=== PATIENT | male | born 1940 | race Caucasian/White ===

== ENCOUNTER 2017-07-24 13:22 | Emergency (ER) | payer MEDICARE, BC ==
[2017-07-24 13:31] VITALS: BP 177/86
--- NOTE | 2017-07-24 14:19 | XRAY Preliminary Report ---
Exam: XR SHOULDER 3 VIEW RT IMPRESSION: 1. No evidence of fracture or dislocation. 2. There is mild to moderate underlying degenerative disease. [facility] SITE ID: [id number]
--- NOTE | 2017-07-24 14:20 | XRAY Report ---
EXAM: RIGHT SHOULDER RADIOGRAPHY EXAM DATE: 07/24/2017 02:10 PM. CLINICAL HISTORY: Right shoulder pain; fell one month ago. COMPARISON: None. TECHNIQUE: 3 views. FINDINGS: Bones: Normal. No fracture or bone lesion. Joints: No evidence of dislocation. There is mild glenohumeral and moderate acromioclavicular joint d egenerative disease. Soft tissues: No evidence of pneumothorax. There is reticular opacity within the right lung base whic h may represent atelectasis. IMPRESSION: 1. No evidence of fracture or dislocation. 2. There is mild to moderate underlying degenerative disease. [facility] Referring Provider Line: [phone] SITE ID: [id number]
--- NOTE | 2017-07-24 14:52 | ED Physician Documentation ---
PD HPI UPPER EXT INJURY - Stated complaint Stated Complaint: RT SHOULDER PX - Chief complaint Chief Complaint: Ext Problem - History obtained from History obtained from: Patient, Family (spouse) - History of Present Illness Location: Right, Shoulder Type of injury: Fall Timing - onset: How many months ago (4) Timing - details: Still present Worsened by: Moving Similar symptoms before: Has not had sx before - Additonal information Additional information: The patient is a 76-year-old male who presents with right shoulder pain. One month ago he fell, impacting his right shoulder on the sidewalk. For several days he was not able to move his right arm because of pain. He did not have it evaluated medically. He presents now for evaluation because of persistent pain in his right shoulder with elevation of his right arm. He is right hand dominant. He denies history of similar symptoms in the past. Review of Systems Constitutional: denies: Fever Cardiac: denies: Chest pain / pressure Respiratory: denies: Dyspnea, Cough GI: denies: Abdominal Pain, Nausea, Vomiting Skin: denies: Rash Musculoskeletal: reports: Joint pain (right shoulder). denies: Neck pain, Back pain Neurologic: denies: Focal weakness, Numbness, Headache PD PAST MEDICAL HISTORY - Past Medical History Past Medical History: No Neuro: None Endocrine/Autoimmune: None - Past Surgical History Past Surgical History: Yes - Present Medications Home Medications: Ambulatory Orders Medication Instructions Recorded Confirmed No Known Home Medications [No 07/24/17 07/24/17 Known Home Medications] - Allergies Allergies/Adverse Reactions: Allergies Allergy/AdvReac Type Severity Reaction Status Date / Time No Known Drug Allergies Allergy Verified 07/24/17 13:29 - Living Situation Living Situation: reports: With spouse/s.o. - Social History Does the pt smoke?: No Smoking Status: Never smoker Does the pt drink ETOH?: No Does the pt have substance abuse?: No - Immunizations Immunizations are current?: Yes - POLST Patient has POLST: No PD ED PE NORMAL - Vitals Vital signs reviewed: Yes (hypertensive) - General General: Alert and oriented X 3, Well developed/nourished - HEENT HEENT: Atraumatic, EOMI - Neck Neck: No bony TTP, No JVD - Cardiac Cardiac: RRR, No murmur - Respiratory Respiratory: No respiratory distress, Clear bilaterally - Abdomen Abdomen: Soft, Non tender - Back Back: No spinal TTP - Derm Derm: No rash - Extremities Extremities: No deformity, Other (There is mild tenderness to palpation of the anterior joint line of the right shoulder. He has full passive range of motion without tenderness, but avoids forward elevation of his right shoulder due to pain. Distal neurovascular is intact.) - Neuro Neuro: Alert and oriented X 3, No motor deficit, No sensory deficit Results - Rads (name of study) right shoulder Radiology: Prelim report reviewed, EMP read contemporaneously, See rad report ( No evidence of fracture or dislocation. There is mild to moderate underlying degenerative disease.) PD MEDICAL DECISION MAKING - ED course Complexity details: reviewed results, re-evaluated patient, considered differential, d/w patient, d/w family ED course: The patient's presentation is significant for contusion to the right shoulder from a fall that occurred one month ago. He presents with persistent pain. X- ray examination of the shoulder reveals no bony abnormality. Rotator cuff injury is a consideration. Treatment in the emergency department included application of a right arm sling. I discussed with him and his symptomatic treatment, outpatient follow-up with orthopedics, as well as potentially worrisome signs or symptoms that should prompt reevaluation in the emergency department. Departure - Departure Disposition: 01 Home, Self Care Clinical Impression: Right shoulder injury Qualifiers: Encounter type: initial encounter Qualified Code(s): S49.91XA - Unspecified injury of right shoulder and upper arm, initial encounter Condition: Stable Instructions: ED Contusion Upper Ext Follow-Up: [facility] [Provider Group] Comments: You can use ibuprofen, up to 800 mg twice daily if needed for pain. You can wear the arm sling if it provides comfort. Follow-up with orthopedics within 2 weeks. Call to schedule appointment. Return to the emergency department if you develop increasing pain, or otherwise worsening symptoms. Discharge Date/Time: 07/24/17 14:54
== END 2017-07-24 14:54 | disposition home or self-care (01) ==
LOC: ED 13:22
DX: S49.91XA Unspecified injury of right shoulder and upper arm, initial encounter (principal); W01.0XXA Fall on same level from slipping, tripping and stumbling without subsequent striking against object, initial encounter; Y93.01 Activity, walking, marching and hiking; Y92.480 Sidewalk as the place of occurrence of the external cause
CPT/HCPCS: 99283

== ENCOUNTER 2017-08-04 10:34 | Outpatient (CLI) | payer MEDICARE, BC ==
--- NOTE | 2017-08-04 13:17 | MRI Report ---
EXAM: RIGHT SHOULDER MRI WITHOUT CONTRAST EXAM DATE: 08/04/2017 11:21 AM. CLINICAL HISTORY: Right shoulder pain for 6 weeks. COMPARISON: 07/24/2017 radiograph. TECHNIQUE: Multiplanar, multisequence T1-weighted and fluid-sensitive sequences of the shoulder witho ut contrast. Other: None. FINDINGS: Acromioclavicular Region: The acromion is type II. Severe acromioclavicular osteoarthropathy is evide nced by bony hypertrophy. The coracoacromial and coracoclavicular ligaments are intact. A mild amount of fluid is in the subacromial/subdeltoid bursa. Glenohumeral Region: No subluxation. No effusion or loose bodies. The articular cartilage is unremark able. The glenohumeral ligaments and joint capsule are unremarkable. Bone Marrow: No fractures. Cysts are in the greater tuberosity. Labrum: The labrum is unremarkable on this nonarthrographic study. Musculature/Rotator Cuff: The upper 80% of the subscapularis tendon has a full-thickness tear with re traction of 3.7 cm. The supraspinatus tendon is completely torn with retraction of 3.6 cm. The infras pinatus tendon is thickened and edematous. The teres minor tendon is intact. No muscle edema. There i s moderate atrophy of the supraspinatus muscle. Biceps Tendon: The biceps tendon is completely torn proximally. Other: The subcutaneous tissues are unremarkable. IMPRESSION: 1. Severe acromioclavicular osteoarthropathy. 2. Mild subacromial/subdeltoid bursitis. 3. Full-thickness tear of the subscapularis tendon. 4. Complete tear of the supraspinatus tendon. 5. Complete proximal biceps tendon tear. [facility] MUSCULOSKELETAL RADIOLOGY SECTION Referring Provider Line: [phone] SITE ID: [id number]
== END 2017-08-04 10:35 | disposition home or self-care (01) ==
LOC: DI 10:34
PROVIDERS: ATTEND Orthopaedic Surgery
DX: M75.101 Unspecified rotator cuff tear or rupture of right shoulder, not specified as traumatic (principal); M19.011 Primary osteoarthritis, right shoulder; M75.51 Bursitis of right shoulder; S46.211A Strain of muscle, fascia and tendon of other parts of biceps, right arm, initial encounter

== ENCOUNTER 2018-05-03 16:42 | Emergency (ER) | payer MEDICARE, BC ==
[2018-05-03 17:21] LABS: GLUCOSE, URINE (UA) NEGATIVE (NEGATIVE); KETONES,URINE (UA) TRACE mg/dL (NEGATIVE); LEUKOCYTE ESTERASE, URINE TRACE (NEGATIVE); NITRITE,URINE POSITIVE (NEGATIVE); OCCULT BLOOD,URINE LARGE (NEGATIVE); PROTEIN,URINE >=300 mg/dL (NEGATIVE); UROBILINOGEN,URINE 1 (NORMAL) E.U./dL (NORMAL)
[2018-05-03 17:30] LABS: BILIRUBIN,URINE NEGATIVE (NEGATIVE); CLARITY,URINE CLOUDY (CLEAR); ICTOTEST,URINE NEGATIVE
[2018-05-03 17:40] LABS: BACTERIA,URINE Many /HPF (None Seen); RBC,URINE TNTC /HPF (0-5); SQUAMOUS EPITHELIAL CELL,UR RARE Squamous (<= Few); WBC CLUMPS,URINE PRESENT
[2018-05-03 17:41] LABS: YEAST,URINE PRESENT
--- NOTE | 2018-05-03 17:45 | ED Physician Documentation ---
PD HPI MALE - Stated complaint Stated Complaint: BLOOD IN URINE - Chief complaint Chief Complaint: General - History obtained from History obtained from: Patient - History of Present Illness Timing - onset: Today Timing - details: Abrupt onset (noted pastor blood in urine today, then some clots in it next void and cleared but still red the last time he urinated. Concerned about it, so not wanting to wait until office open in couple days.) Associated symptoms: Urinary frequency (for 1-2 days but did not feel too bothered by it.), Hematuria (today). No: Dysuria, Discharge, Genital sore / lesion Similar symptoms before: Has not had sx before Recently seen: Not recently seen Review of Systems Constitutional: denies: Fever, Chills, Myalgias Nose: denies: Rhinorrhea / runny nose, Congestion Throat: denies: Sore throat Respiratory: denies: Cough GI: denies: Vomiting, Diarrhea : reports: Frequency, Hematuria. denies: Discharge Skin: denies: Rash PD PAST MEDICAL HISTORY - Past Medical History Past Medical History: No Endocrine/Autoimmune: None - Past Surgical History Past Surgical History: Yes - Present Medications Home Medications: Ambulatory Orders Medication Instructions Recorded Confirmed Sulfamethox/Trimeth 800/160 1 each PO BID #14 tablet 05/03/18 [Bactrim Ds 800/160] - Allergies Allergies/Adverse Reactions: Allergies Allergy/AdvReac Type Severity Reaction Status Date / Time No Known Drug Allergies Allergy Verified 07/24/17 13:29 - Social History Does the pt smoke?: No Smoking Status: Never smoker Does the pt drink ETOH?: No Does the pt have substance abuse?: No - Immunizations Immunizations are current?: Yes - POLST Patient has POLST: No PD ED PE NORMAL - Vitals Vital signs reviewed: Yes - General General: Alert and oriented X 3, No acute distress, Well developed/nourished - Male Male : Other (normal genitalia) - Rectal Rectal: Deferred - Back Back: No CVA TTP - Derm Derm: Normal color, Warm and dry, No rash Results - Vitals Vitals: Vital Signs - 24 hr 05/03/18 05/03/18 16:59 18:20 Temperature 36.6 C 36.7 C Heart Rate 68 67 Respiratory 16 18 Rate Blood Pressure 162/76 H 169/81 H O2 Saturation 97 95 Oxygen O2 Source Room air - Labs Labs: Laboratory Tests 05/03/18 17:10 Urine Color RED/BLOODY Urine Clarity CLOUDY Urine pH 5.0 Ur Specific [place] >=1.030 H Urine Protein >=300 Urine Glucose (UA) NEGATIVE Urine Ketones TRACE Urine Occult Blood LARGE H Urine Nitrite POSITIVE H Urine Bilirubin NEGATIVE Urine Urobilinogen 1 (NORMAL) Ur Leukocyte Esterase TRACE H Urine RBC TNTC H Urine WBC 11-25 H Urine WBC Clumps PRESENT Ur Squamous Epith Cells RARE Squamous Urine Bacteria Many H Urine Yeast PRESENT Ur Microscopic Review INDICATED Urine Culture Comments INDICATED PD MEDICAL DECISION MAKING - ED course Complexity details: considered differential (blood in urine but in context of UTI, so can treat that. Discussed with him, if had persistent blood in urine after treatment, consider cystoscopy or such to ensure no polyps/tumors/etc.), d /w patient - Sepsis Event Vital Signs: Vital Signs - 24 hr 05/03/18 05/03/18 16:59 18:20 Temperature 36.6 C 36.7 C Heart Rate 68 67 Respiratory 16 18 Rate Blood Pressure 162/76 H 169/81 H O2 Saturation 97 95 Oxygen O2 Source Room air Departure - Departure Disposition: 01 Home, Self Care Clinical Impression: Hematuria Qualifiers: Hematuria type: unspecified type Qualified Code(s): R31.9 - Hematuria, unspecified UTI (urinary tract infection) Qualifiers: Urinary tract infection type: acute cystitis Hematuria presence: with hematuria Qualified Code(s): N30.01 - Acute cystitis with hematuria Condition: Stable Record reviewed to determine appropriate education?: Yes Instructions: ED UTI Cystitis Male Follow-Up: Ramírez Masters DO [Primary Care Provider] - Prescriptions: Sulfamethox/Trimeth 800/160 [Bactrim Ds 800/160] 1 each PO BID #14 tablet Comments: Your urine test does show signs of the significant infection and blood with this occurs fairly commonly. We will therefore treat the bladder infection and see if things clear up. Follow-up with your primary care towards the end of the week for recheck. Drink lots of fluids. Tylenol if needed for discomfort. Bactrim twice daily for a week for the infection. Discharge Date/Time: 05/03/18 18:22
[2018-05-03] MEDS ORDERED: SULFAMETH/TRIMETH DS 800/160 MG TABLET PO STA (18:04)
[2018-05-03 18:21] VITALS: BP 169/81
== END 2018-05-03 18:22 | disposition home or self-care (01) ==
LOC: ED 16:42
DX: N30.01 Acute cystitis with hematuria (principal)
CPT/HCPCS: 81001; 87086; 99283; A9270; 81003

== ENCOUNTER 2018-05-08 11:36 | Emergency (ER) | payer MEDICARE, BC ==
[2018-05-08] MEDS ORDERED: SODIUM CHLORIDE 0.9% 1,000 ML IV ONE ×2 (12:46)
[2018-05-08 12:48] LABS: GLUCOSE, URINE (UA) NEGATIVE (NEGATIVE); KETONES,URINE (UA) TRACE mg/dL (NEGATIVE); LEUKOCYTE ESTERASE, URINE NEGATIVE (NEGATIVE); NITRITE,URINE NEGATIVE (NEGATIVE); OCCULT BLOOD,URINE LARGE (NEGATIVE); PH,URINE 5.5 PH (5.0-7.5); PROTEIN,URINE 100 mg/dL (NEGATIVE); UROBILINOGEN,URINE 1 (NORMAL) E.U./dL (NORMAL)
--- NOTE | 2018-05-08 12:50 | ED Physician Documentation ---
History of Present Illness - Stated complaint Stated Complaint: MALE - Chief complaint Chief Complaint: Abd Pain - History obtained from History obtained from: Patient, Family - History of Present Illness Timing: How many days ago (5) Pain level max: 0 Pain level now: 0 - Additonal information Additional information: Patient is a 77-year-old male who was seen here 5 days ago for hematuria and diagnosed with a bladder infection. Started on Bactrim. States he has not been feeling well since that time. Had a temperature of 101 last night. Has had nausea but no vomiting. Has felt weaker than usual. Is not on any other medications at home. No fevers today. Denies any abdominal, back or flank pain. No headaches. Nothing makes it better or worse. The hematuria has been intermittent. No history of bladder cancer, but does have a history of an enlarged prostate and had a TURP performed approximately 8 years ago Review of Systems Constitutional: denies: Myalgias Ears: denies: Ear pain Nose: denies: Rhinorrhea / runny nose, Congestion Throat: denies: Sore throat Cardiac: denies: Chest pain / pressure Respiratory: denies: Cough GI: denies: Abdominal Pain, Vomiting, Diarrhea, Hematemesis, Bloody / black stool Skin: denies: Rash Musculoskeletal: denies: Neck pain, Back pain Neurologic: denies: Headache PD PAST MEDICAL HISTORY - Past Medical History Past Medical History: No Endocrine/Autoimmune: None - Past Surgical History Past Surgical History: Yes - Present Medications Home Medications: Ambulatory Orders Medication Instructions Recorded Confirmed Sulfamethox/Trimeth 800/160 1 each PO BID #14 tablet 05/03/18 [Bactrim Ds 800/160] - Allergies Allergies/Adverse Reactions: Allergies Allergy/AdvReac Type Severity Reaction Status Date / Time No Known Drug Allergies Allergy Verified 07/24/17 13:29 - Living Situation Living Situation: reports: With family Living Arrangement: reports: At home - Social History Does the pt smoke?: No Smoking Status: Never smoker Does the pt drink ETOH?: No Does the pt have substance abuse?: No - Family History Family history: reports: Non contributory - Immunizations Immunizations are current?: Yes - POLST Patient has POLST: No PD ED PE NORMAL - Vitals Vital signs reviewed: Yes - General General: Alert and oriented X 3, No acute distress - HEENT HEENT: Other (dry lips) - Neck Neck: Supple, no meningeal sign - Cardiac Cardiac: RRR, Strong equal pulses - Respiratory Respiratory: No respiratory distress, Clear bilaterally - Abdomen Abdomen: Soft, Non tender, Non distended - Back Back: No CVA TTP, No spinal TTP - Derm Derm: Warm and dry - Extremities Extremities: No edema - Neuro Neuro: Alert and oriented X 3 - Psych Psych: Normal mood, Normal affect Results - Vitals Vitals: Vital Signs - 24 hr 05/08/18 05/08/18 05/08/18 11:44 13:45 14:04 Temperature 36.5 C 37.5 C 36.5 C Heart Rate 51 L 79 Respiratory 18 18 Rate Blood Pressure 139/78 H 128/62 O2 Saturation 96 92 Oxygen O2 Source Room air - Labs Labs: Laboratory Tests 05/08/18 05/08/18 05/08/18 12:40 13:00 13:00 WBC 5.7 RBC 5.92 Hgb 17.7 Hct 51.1 MCV 86.2 MCH 29.9 MCHC 34.7 RDW 13.8 Plt Count 170 MPV 7.4 Neut # (Auto) 5.1 Lymph # (Auto) 0.2 L Graves # (Auto) 0.4 Eos # (Auto) 0.0 Baso # (Auto) 0.0 Absolute Nucleated RBC 0.01 Nucleated RBC % 0.2 Sodium 131 L Potassium 3.8 Chloride 94 L Carbon Dioxide 27 Anion Gap 10.0 BUN 28 H Creatinine 1.3 H Estimated GFR (MDRD) 53 L Glucose 128 H Calcium 8.7 Total Bilirubin 0.8 AST 125 H ALT 128 H Alkaline Phosphatase 168 H Total Protein 7.7 Albumin 4.1 Globulin 3.6 Albumin/Globulin Ratio 1.1 Lipase 38 Urine Color DARK YELLOW Urine Clarity HAZY Urine pH 5.5 Ur Specific [place] >=1.030 H Urine Protein 100 H Urine Glucose (UA) NEGATIVE Urine Ketones TRACE Urine Occult Blood LARGE H Urine Nitrite NEGATIVE Urine Bilirubin SMALL H Urine Urobilinogen 1 (NORMAL) Ur Leukocyte Esterase NEGATIVE Urine RBC 0-5 Urine WBC 0-3 Ur Squamous Epith Cells FEW Squamous Amorphous Sediment Few Urine Bacteria None Seen Urine Casts 0-2 Granular Casts Urine Starch PRESENT Urine Mucus Few Strands Ur Microscopic Review INDICATED Urine Culture Comments NOT INDICATED PD MEDICAL DECISION MAKING - ED course Complexity details: reviewed results, re-evaluated patient, considered differential, d/w patient, d/w family ED course: Patient is a 77-year-old male who was seen here for hematuria and treated with Bactrim for a UTI. Does not appear to have a UTI on today's testing. He is mildly hyponatremic and does have mild elevation of his liver function tests. We will stop the Bactrim, given IV fluids. He does feel better. We will have him follow-up with his doctor for further care including referral to urology for possible cystoscopy. Patient is well-appearing, nontoxic. Afebrile here. Tolerating p.o. without difficulty. Ambulating well. Patient and family counseled regarding signs and symptoms for which I believe and urgent re- evaluation would be necessary. Patient with good understanding of and agreement to plan and is comfortable going home at this time This document was made in part using voice recognition software. While efforts are made to proofread this document, sound alike and grammatical errors may occur. - Sepsis Event Vital Signs: Vital Signs - 24 hr 05/08/18 05/08/18 05/08/18 11:44 13:45 14:04 Temperature 36.5 C 37.5 C 36.5 C Heart Rate 51 L 79 Respiratory 18 18 Rate Blood Pressure 139/78 H 128/62 O2 Saturation 96 92 Oxygen O2 Source Room air Departure - Departure Disposition: 01 Home, Self Care Clinical Impression: Dehydration, Hyponatremia, Elevated LFTs Hematuria Qualifiers: Hematuria type: gross Qualified Code(s): R31.0 - Gross hematuria Condition: Stable Instructions: ED Dehydration Follow-Up: Ramírez Masters DO [Primary Care Provider] - 05/08/18 Comments: You are dehydrated today and should feel better after IV fluids. You should stop the Bactrim at this point. The does not appear to be any residual infection in your urine. However your liver function tests are slightly elevated and this may be from the Bactrim. You should follow-up closely with urology for a cystoscopy to further evaluate your bladder. You should also have your blood work rechecked in approximately 1 week with your doctor. Return if you worsen Discharge Date/Time: 05/08/18 14:13
[2018-05-08 13:00] LABS: CLARITY,URINE HAZY (CLEAR)
[2018-05-08 13:07] LABS: BASOPHILS % (AUTO) 0.3 %; EOSINOPHILS % (AUTO) 0.1 %; HGB - HEMOGLOBIN 17.7 g/dL (14.0-18.0); LYMPHOCYTES # (AUTO) 0.2 10^3/uL (1.5-3.5); LYMPHOCYTES % (AUTO) 3.2 %; MEAN CORPUSCULAR HEMOGLOBIN 29.9 pg (27.0-31.0); MEAN CORPUSCULAR HGB CONC 34.7 g/dL (32.0-36.0); MEAN CORPUSCULAR VOLUME 86.2 fL (80.0-94.0); MEAN PLATELET VOLUME 7.4 fL (7.4-11.4); MONOCYTES # (AUTO) 0.4 10^3/uL (0.0-1.0); MONOCYTES % (AUTO) 7.6 %; NEUTROPHILS # (AUTO) 5.1 10^3/uL (1.5-6.6); NEUTROPHILS % (AUTO) 88.8 %; PLT - PLATELET COUNT 170 10^3/uL (130-450); RED BLOOD COUNT 5.92 10^6/uL (4.70-6.10); RED CELL DISTRIBUTION WIDTH 13.8 % (12.0-15.0); WHITE BLOOD COUNT 5.7 x10^3/uL (4.8-10.8)
[2018-05-08 13:16] LABS: ALBUMIN 4.1 g/dL (3.2-5.5); ALBUMIN/GLOBULIN RATIO 1.1 (1.0-2.2); BILIRUBIN,TOTAL 0.8 mg/dL (0.2-1.0); CALCIUM 8.7 mg/dL (8.5-10.3); CREATININE 1.3 mg/dL (0.6-1.2); TOTAL PROTEIN 7.7 g/dL (6.7-8.2)
[2018-05-08 13:29] LABS: RBC,URINE 0-5 /HPF (0-5); SQUAMOUS EPITHELIAL CELL,UR FEW Squamous (<= Few)
[2018-05-08 13:30] LABS: AMORPHOUS SEDIMENT,UR Few /LPF; BACTERIA,URINE None Seen /HPF (None Seen); CASTS, URINE 0-2 Granular Casts /LPF; MUCUS,URINE Few Strands
[2018-05-08 13:31] LABS: STARCH,URINE PRESENT
[2018-05-08 13:32] LABS: BILIRUBIN,URINE SMALL (NEGATIVE); ICTOTEST,URINE POSITIVE
[2018-05-08 13:45] VITALS: BP 128/62
== END 2018-05-08 14:13 | disposition home or self-care (01) ==
LOC: ED 11:36
DX: E87.1 Hypo-osmolality and hyponatremia (principal); E86.0 Dehydration; R74.8 Abnormal levels of other serum enzymes; R31.0 Gross hematuria
CPT/HCPCS: 36415; 80053; 81001; 81003; 83690; 85025; 87086; 96360; 99282; 99283

== ENCOUNTER 2018-09-02 20:37 | Emergency (ER) | payer MEDICARE, BC ==
--- NOTE | 2018-09-02 20:55 | ED Physician Documentation ---
PD HPI MALE - Stated complaint Stated Complaint: MALE /NO URINATION - Chief complaint Chief Complaint: Abd Pain - History obtained from History obtained from: Patient - History of Present Illness Timing - onset: Today Timing - duration: Hours (he had bladder cancer treatment this morning, the 6th of 6 treatments, prior 5 without problems. Today, he has had feeling of burning with urination and a feeling of urgency with only small amount of urine out. He says he has not had urine out for past 2 hours, and was not drinking much fluid for concern of filling up and having increased pain, presuming urinary retention.) Timing - details: Gradual onset, Still present Associated symptoms: Dysuria, Urinary frequency. 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 He is concerned as has some urinary retention with Bactrim abx in the past, though was ? for UTi so not clear if the urinary symptoms were from med per se.) Review of Systems Constitutional: denies: Fever, Chills Nose: denies: Rhinorrhea / runny nose, Congestion Throat: denies: Sore throat Respiratory: denies: Cough GI: denies: Nausea, Vomiting, Diarrhea : reports: Dysuria, Frequency. denies: Hematuria, Discharge Skin: denies: Rash PD PAST MEDICAL HISTORY - Past Medical History Cardiovascular: None Endocrine/Autoimmune: None : Other (bladder cancer) - Past Surgical History Past Surgical History: Yes - Present Medications Home Medications: Ambulatory Orders Medication Instructions Recorded Confirmed Naproxen 500 mg PO BID #10 tablet 09/02/18 Phenazopyridine HCl [Pyridium] 200 mg PO TID PRN #6 tablet 09/02/18 - Allergies Allergies/Adverse Reactions: Allergies Allergy/AdvReac Type Severity Reaction Status Date / Time sulfamethoxazole Allergy Nausea Verified 09/02/18 21:34 [From Bactrim] trimethoprim [From Bactrim] Allergy Nausea Verified 09/02/18 21:34 - Social History Does the pt smoke?: No Smoking Status: Never smoker Does the pt drink ETOH?: No Does the pt have substance abuse?: No - Immunizations Immunizations are current?: Yes - POLST Patient has POLST: No PD ED PE NORMAL - Vitals Vital signs reviewed: Yes - General General: Alert and oriented X 3, No acute distress, Well developed/nourished - HEENT HEENT: Other (left side of nose with bandage in place over skin excisional wound, without signs of infection. ) - Cardiac Cardiac: RRR, No murmur - Respiratory Respiratory: Clear bilaterally - Abdomen Abdomen: Normal bowel sounds, Soft, Non tender, Non distended - Male Male : Other (normal external appearance) - Back Back: No CVA TTP - Derm Derm: Normal color, Warm and dry - Neuro Neuro: Alert and oriented X 3, No motor deficit, Normal speech Results - Vitals Vitals: Vital Signs - 24 hr 09/02/18 09/02/18 09/02/18 20:50 21:42 22:09 Temperature 36.4 C L Heart Rate 47 L 86 85 Respiratory 16 22 Rate Blood Pressure 158/71 H 149/80 H O2 Saturation 95 93 09/02/18 22:12 Temperature 36.9 C Heart Rate Respiratory Rate Blood Pressure O2 Saturation Oxygen O2 Source Room air - Labs Labs: Laboratory Tests 09/02/18 20:47 Urine Color YELLOW Urine Clarity CLEAR Urine pH 6.0 Ur Specific [place] 1.020 Urine Protein 100 H Urine Glucose (UA) NEGATIVE Urine Ketones NEGATIVE Urine Occult Blood LARGE H Urine Nitrite NEGATIVE Urine Bilirubin NEGATIVE Urine Urobilinogen 0.2 (NORMAL) Ur Leukocyte Esterase TRACE H Urine RBC TNTC H Urine WBC >25 H Ur Squamous Epith Cells NONE SEEN Urine Bacteria None Seen Ur Microscopic Review INDICATED Urine Culture Comments INDICATED PD MEDICAL DECISION MAKING - ED course Complexity details: reviewed results (bladder scanner showed only 60 ml and bedside U/S by me affirmed minimal urine in bladder. The UA shows some blood and some white cells, but no bacteria, which I interpret as reasonable reactivity to the catheter and treatment this morning and presume inflammatory and not necessarily infectious. He had been placed on Doxy preventitively for skin SHERON procedure done yesterday and he/ wonder if med side effect, since he did not have dysuria with the first 5 cancer treatments. Since it is just preventive abx, I feel they could just discontinue it anyway, if not sure. ), considered differential, d/w patient Departure - Departure Disposition: Home, Self Care Clinical Impression: Dysuria, Urethral irritation Condition: Stable Record reviewed to determine appropriate education?: Yes Instructions: ED Urethritis Infec Vs Inflam Male Follow-Up: Ramírez Masters DO [Primary Care Provider] - Prescriptions: Naproxen 500 mg PO BID #10 tablet Phenazopyridine HCl [Pyridium] 200 mg PO TID PRN #6 tablet PRN Reason: dysuria Comments: Your bladder and does not have very much urine left in it and so you are emptying appropriately. Your urine test shows the presence of some blood and a few inflammatory white cells but no bacteria. It seems like in inflammation and irritation of the urethra and bladder from the catheter earlier leading to your symptoms. We will treated with some anti-inflammatories and phenazopyridine to decrease the discomfort. Drink lots of fluids. Recheck if not improved over the next 1-2 days. You could follow-up with your urologist if continued symptoms. We will do a urine culture as well to ensure no early infection. I would discontinue the doxycycline for your skin procedure at this point. I do n ot think your symptoms are side effect to that but I do not think it is of large benefit anyway. Discharge Date/Time: 09/02/18 22:25
[2018-09-02 21:32] LABS: BILIRUBIN,URINE NEGATIVE (NEGATIVE); GLUCOSE, URINE (UA) NEGATIVE (NEGATIVE); KETONES,URINE (UA) NEGATIVE (NEGATIVE); LEUKOCYTE ESTERASE, URINE TRACE (NEGATIVE); NITRITE,URINE NEGATIVE (NEGATIVE); OCCULT BLOOD,URINE LARGE (NEGATIVE); PROTEIN,URINE 100 mg/dL (NEGATIVE); UROBILINOGEN,URINE 0.2 (NORMAL) E.U./dL (NORMAL)
[2018-09-02 21:33] LABS: CLARITY,URINE CLEAR (CLEAR)
[2018-09-02 21:41] LABS: RBC,URINE TNTC /HPF (0-5)
[2018-09-02 21:42] LABS: BACTERIA,URINE None Seen /HPF (None Seen); SQUAMOUS EPITHELIAL CELL,UR NONE SEEN (<= Few)
[2018-09-02] MEDS ORDERED: PHENAZOPYRIDINE 100 MG TABLET PO STA (21:48)
[2018-09-02] MEDS ORDERED: NAPROXEN 250 MG TABLET PO STA (21:48)
[2018-09-02] MEDS ORDERED: PHENAZOPYRIDINE 100 MG TABLETS (Prepack) PO PRN (21:48)
[2018-09-02 22:09] VITALS: BP 149/80
== END 2018-09-02 22:25 | disposition home or self-care (01) ==
LOC: ED 20:37
DX: R30.0 Dysuria (principal); N36.8 Other specified disorders of urethra; C67.9 Malignant neoplasm of bladder, unspecified; R31.9 Hematuria, unspecified
CPT/HCPCS: 51798; 81001; 87086; 99283; A9270; 81003

== ENCOUNTER 2019-03-26 13:55 | Inpatient (IN) | payer MEDICARE, BC ==
[2019-03-26 14:44] LABS: BASOPHILS % (AUTO) 0.3 %; EOSINOPHILS % (AUTO) 0.2 %; HGB - HEMOGLOBIN 15.4 g/dL (14.0-18.0); LYMPHOCYTES # (AUTO) 0.9 10^3/uL (1.5-3.5); MEAN CORPUSCULAR VOLUME 88.1 fL (80.0-94.0); MEAN PLATELET VOLUME 8.7 fL (7.4-11.4); MONOCYTES # (AUTO) 0.7 10^3/uL (0.0-1.0); NEUTROPHILS # (AUTO) 11.4 10^3/uL (1.5-6.6); NEUTROPHILS % (AUTO) 86.8 %; PLT - PLATELET COUNT 196 10^3/uL (130-450); RED BLOOD COUNT 5.14 10^6/uL (4.70-6.10); RED CELL DISTRIBUTION WIDTH 13.4 % (12.0-15.0); WHITE BLOOD COUNT 13.1 x10^3/uL (4.8-10.8)
[2019-03-26 15:00] LABS: ALBUMIN 4.4 g/dL (3.2-5.5); ALBUMIN/GLOBULIN RATIO 1.5 (1.0-2.2); CALCIUM 9.3 mg/dL (8.5-10.3); TOTAL PROTEIN 7.4 g/dL (6.7-8.2)
--- NOTE | 2019-03-26 15:53 | ED Physician Documentation ---
PD HPI MALE - Stated complaint Stated Complaint: MALE - Chief complaint Chief Complaint: Abd Pain - History obtained from History obtained from: Patient - History of Present Illness Timing - onset: How many days ago (3) Timing - duration: Days (He had a bladder biopsy 3 weeks ago with some bleeding for a day or 2 after that without any clots. He was doing well and then noted some blood in his urine 3 days ago that lasted just part of the day without clots. He then had resumption of significant bleeding with formation of clots and on able to urinate starting today.) Timing - details: Abrupt onset (today) Associated symptoms: Unable to urinate (after passing some clots, but then felt he could not urinate after that.), Hematuria Similar symptoms before: Diagnosis (has had some hematuria after bladder biopsy, and some blood in urine prior to that that had prompted the biopsy. But had not had clots like this previously.) Review of Systems Constitutional: denies: Fever, Chills Nose: denies: Rhinorrhea / runny nose, Congestion Throat: denies: Sore throat Respiratory: denies: Cough GI: reports: Abdominal Pain (fullness in bladder), Nausea. denies: Vomiting, Constipation, Diarrhea : reports: Hematuria Neurologic: denies: Generalized weakness, Near syncope Endocrine: denies: Easy bruising / bleeding Immunocompromised: denies: Immunocompromised PD PAST MEDICAL HISTORY - Past Medical History Cardiovascular: None Endocrine/Autoimmune: None : Other - Past Surgical History Past Surgical History: Yes - Present Medications Home Medications: Ambulatory Orders Medication Instructions Recorded Confirmed No Known Home Medications 03/27/19 03/27/19 - Allergies Allergies/Adverse Reactions: Allergies Allergy/AdvReac Type Severity Reaction Status Date / Time sulfamethoxazole Allergy Nausea Verified 03/26/19 14:01 [From Bactrim] trimethoprim [From Bactrim] Allergy Nausea Verified 03/26/19 14:01 - Social History Does the pt smoke?: No Smoking Status: Never smoker Does the pt drink ETOH?: No Does the pt have substance abuse?: No - Immunizations Immunizations are current?: Yes - POLST Patient has POLST: No PD ED PE NORMAL - Vitals Vital signs reviewed: Yes (BP elevated but likely due to pain/bladder pressure. ) - General General: Alert and oriented X 3, Well developed/nourished, Other (appears uncomfortable due to bladder fullness. ) - Neck Neck: Supple, no meningeal sign, No adenopathy - Cardiac Cardiac: RRR, No murmur - Respiratory Respiratory: Clear bilaterally - Abdomen Abdomen: Normal bowel sounds, Soft, No organomegaly, Other (bladder fullness) - Back Back: No CVA TTP - Derm Derm: Normal color, Warm and dry - Extremities Extremities: No edema, No calf tenderness / cord - Neuro Neuro: Alert and oriented X 3, No motor deficit, Normal speech Results - Vitals Vitals: Vital Signs - 24 hr 03/26/19 19:55 Heart Rate 81 Respiratory 19 Rate Blood Pressure 174/87 H O2 Saturation 99 Oxygen O2 Source Room air - Labs Labs: Microbiology 03/26/19 18:41 Urine Culture - Preliminary Urine,Catheterized CULTURE IN PROGRESS. RESULTS TO FOLLOW. Laboratory Tests 03/26/19 03/26/19 03/26/19 14:38 14:38 14:38 WBC 13.1 H RBC 5.14 Hgb 15.4 Hct 45.3 MCV 88.1 MCH 30.0 MCHC 34.0 RDW 13.4 Plt Count 196 MPV 8.7 Neut # (Auto) 11.4 H Lymph # (Auto) 0.9 L [place] # (Auto) 0.7 Eos # (Auto) 0.0 Baso # (Auto) 0.0 Absolute Nucleated RBC 0.00 Nucleated RBC % 0.0 PT 13.3 H INR 1.2 Sodium 139 Potassium 4.2 Chloride 103 Carbon Dioxide 23 Anion Gap 13.0 BUN 27 H Creatinine 1.0 Estimated GFR (MDRD) 72 L Glucose 144 H Calcium 9.3 Total Bilirubin 1.0 AST 19 ALT 17 Alkaline Phosphatase 65 Total Protein 7.4 Albumin 4.4 Globulin 3.0 Albumin/Globulin Ratio 1.5 Lipase 24 Urine Color Urine Clarity Urine pH Ur Specific [place] Urine Protein Urine Glucose (UA) Urine Ketones Urine Occult Blood Urine Nitrite Urine Bilirubin Urine Urobilinogen Ur Leukocyte Esterase Urine RBC Urine WBC Ur Squamous Epith Cells Urine Bacteria Ur Microscopic Review Urine Culture Comments 03/26/19 18:41 WBC RBC Hgb Hct MCV MCH MCHC RDW Plt Count MPV Neut # (Auto) Lymph # (Auto) [place] # (Auto) Eos # (Auto) Baso # (Auto) Absolute Nucleated RBC Nucleated RBC % PT INR Sodium Potassium Chloride Carbon Dioxide Anion Gap BUN Creatinine Estimated GFR (MDRD) Glucose Calcium Total Bilirubin AST ALT Alkaline Phosphatase Total Protein Albumin Globulin Albumin/Globulin Ratio Lipase Urine Color RED/BLOODY Urine Clarity HAZY Urine pH 7.0 Ur Specific [place] <=1.005 Urine Protein >=300 H Urine Glucose (UA) Urine Ketones Urine Occult Blood LARGE H Urine Nitrite POSITIVE H Urine Bilirubin NEGATIVE Urine Urobilinogen 4 H Ur Leukocyte Esterase MODERATE H Urine RBC TNTC H Urine WBC 11-25 H Ur Squamous Epith Cells NONE SEEN Urine Bacteria None Seen Ur Microscopic Review INDICATED Urine Culture Comments INDICATED PD MEDICAL DECISION MAKING - ED course Complexity details: re-evaluated patient (feeling better and BP down after bladder empty. ), considered differential, d/w patient, d/w customer support consultant (Dr. Gilberto mosley, his Urologist at [place], who said to continue the irrigation, titrating rate to just tinted red, and to contact him for transfer if it has not resolved into tomorrow. He did say we could transfer now if our Hospitalist uncomfortable. Talked with Dr. Askew, who said he would see the patient. ) Departure - Departure Disposition: 66 [facility] DC/Xfer Clinical Impression: Gross hematuria, Acute urinary retention UTI (urinary tract infection) Qualifiers: Urinary tract infection type: acute cystitis Hematuria presence: with hematuria Qualified Code(s): N30.01 - Acute cystitis with hematuria Condition: Stable Record reviewed to determine appropriate education?: Yes Discharge Date/Time: 03/26/19 20:15
[2019-03-26] MEDS ORDERED: TRANEXAMIC ACID 1,000 MG in SODIUM CHLORIDE 0.9% 100ML 100 ML IV STA (16:23)
[2019-03-26] MEDS ORDERED: KETOROLAC 15 MG/ML VIAL IVP STA (16:24)
[2019-03-26] MEDS ORDERED: SODIUM CHLORIDE 0.9% 1,000 ML IV ONE (16:24)
[2019-03-26] MEDS ORDERED: LIDOCAINE 2% URO-JET 5 ML SYRINGE UR STA (17:03)
[2019-03-26] MEDS ORDERED: WATER FOR INJECTION,STERILE 10 ML ONE (17:11)
[2019-03-26 19:05] LABS: BILIRUBIN,URINE NEGATIVE (NEGATIVE); LEUKOCYTE ESTERASE, URINE MODERATE (NEGATIVE); NITRITE,URINE POSITIVE (NEGATIVE); OCCULT BLOOD,URINE LARGE (NEGATIVE); PROTEIN,URINE >=300 mg/dL (NEGATIVE); UROBILINOGEN,URINE 4 E.U./dL (NORMAL)
[2019-03-26 19:09] LABS: BACTERIA,URINE None Seen /HPF (None Seen); CLARITY,URINE HAZY (CLEAR); RBC,URINE TNTC /HPF (0-5); SQUAMOUS EPITHELIAL CELL,UR NONE SEEN (<= Few)
[2019-03-26] MEDS ORDERED: cefTRIAXone 1 GM VIAL IVP STA (19:33)
[2019-03-26] MEDS ORDERED: ACETAMINOPHEN 325 MG TABLET PO PRN (20:00)
[2019-03-26] MEDS ORDERED: SODIUM CHLORIDE FLUSH 0.9% 10 ML SYRINGE IVP PRN (20:00)
--- NOTE | 2019-03-26 20:15 | HISTORY & PHYSICAL EXAMINATION ---
Chief Complaint - Chief Complaint Chief Complaint: Difficulty urinating History of Present Illness - Admitted From Admitted From:: Home - History Obtained From Records Reviewed: Yes History obtained from: Patient, Family, ER Physican - History of Present Illness HPI Comment/Other: This is a 78 year old male with a past medical history significant for bladder cancer who presents from complaining of difficulty urinating. He underwent a bladder biopsy about three weeks which per the patient, was negative for malignancy. He was doing well up until this week when he developed hematuria. It initially resolved on it's own but today he was unable to void and had significant pain. He then began to pass blood clots. He reports doing well and denies fevers, abdominal pain, chest pain. Does report chills and feeling weak today. He felt felt faint earlier in the day but did not have a syncopal episode. He took Naproxen this morning without much reflief. He does not aspirin or anticoagulants. He follows with Urology at [place] where he was treated with BCG earlier this year. In the ER, a paul catheter was placed and gross hematuria with clots was noted. His Urologist was contacted by the ER physician who recommend continous bladder irrigation. The clots resolved and his hematuria began to clear. Urology recommended admission for observation and CBI. It was felt that transfer was not deemed necessary at this time as his hematuria was improving. I spoke with the patient and his family who would prefer to be observed here rather than transferred to [facility] if management was unlikely to change. I did discuss with them that if his hematuria becomes more severe or does not resolve, they we may need to consider transfer the following day and they were agreeable to this. The patient is also requesting to be full code. He does not have a living will or put much though into his code status yet but would like everything to be done at this time. History - Past Medical History Cardiovascular: reports: None Neuro: reports: None Endocrine/Autoimmune: reports: None : reports: Other (Bladder cancer) MRSA Hx?: No - Past Surgical History /PUBLIC SPEAKER: reports: Other (Cystoscopy) - Family & Social History Family History: Brother: Cancer (Bladder) Family History Comment/Other: Denies any significant medical history except for that his brother also has bladder cancer. Living arrangement: At home Living Situation: With spouse/s.o. 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 Retired and moved to [facility] 15 years ago as his daughter lived here. Lives with his . Does not smoke or drink alcohol. - Substance History Use: Uses substance without health or social issues: NONE - POLST Patient has POLST: No Meds/Allgy - Home Medications Home Medications: Ambulatory Orders Medication Instructions Recorded Confirmed Naproxen 500 mg PO BID #10 tablet 09/02/18 Phenazopyridine HCl [Pyridium] 200 mg PO TID PRN #6 tablet 09/02/18 - Allergies Allergies/Adverse Reactions: Allergies Allergy/AdvReac Type Severity Reaction Status Date / Time sulfamethoxazole Allergy Nausea Verified 03/26/19 14:01 [From Bactrim] trimethoprim [From Bactrim] Allergy Nausea Verified 03/26/19 14:01 Review of Systems - Constitutional Constitutional: reports: Fatigue, Chills, Malaise, Weakness. denies: Fever - Cardiovascular Cariovascular: denies: Palpitations, Chest pain, Edema, Syncope - Respiratory Respiratory: denies: SOB at rest, SOB with exertion - Gastrointestinal Gastrointestinal: denies: Abdominal pain, Nausea, Vomiting - Genitourinary Genitourinary: reports: Dysuria, Urgency, Hematuria, Other (Difficulty voiding) - Musculoskeletal Musculoskeletal: reports: Stiffness, Limited range of motion. denies: Muscle weakness - Integumentary Integumentary: denies: Rash - Neurological Neurological: reports: General weakness, Dizziness. denies: Focal weakness, Numbness - All Other Systems All Other Systems: reports: Reviewed and negative Prior Level of Functionality: Independent with ADL's Exam - Vital Signs Reviewed Vital Signs: Yes Vital Signs: Vital Signs x48h Temp Pulse Resp BP Pulse Ox 03/26/19 19:55 81 19 174/87 H 99 03/26/19 13:58 36.7 C 83 16 200/95 H 95 - Physical Exam General Appearance: positive: No acute distress, Alert Eyes Bilateral: positive: Normal inspection ENT: positive: ENT inspection nml Neck: positive: Nml inspection Respiratory: positive: No respiratory distress, Breath sounds nml. negative: Wheezes, Rales, Rhonchi Cardiovascular: positive: Regular rate & rhythm, No gallop. negative: Tachycard ia, Bradycardia Abdomen: positive: Non-tender, No distention. negative: Tenderness, Abnml bowel sounds Rectal: positive: Other (Paul in place draining fruit punch colored urine) Skin: positive: No rash, Warm, Dry Extremities: positive: No pedal edema. negative: Pedal edema Neurologic/Psychiatric: positive: Oriented x3, Motor nml. negative: Disoriented to person, Disoriented to place, Disoriented to time Conclusion/Plan - Problem List (1) Gross hematuria Conclusion/Plan: He has gross hematuria in the setting of cystoscopy and bladder biopsy approximately three weeks ago. Hematuria is improving with CBI and no longer passing clots. His hemoglobin is stable. Urology contacted at [facility] and recommend continuing CBI. - Continue CBI and titrate to link pink colored urine - Monitor H/H - Hold chemical DVT prophylaxis - If bleeding persists or does not resolve, will contact Urology at [place] [facility] for transfer (2) UTI (urinary tract infection) Conclusion/Plan: His urinalysis shows pyuria with nitrites and a large amount of blood. He has mild leukocytosis. - Ceftriaxone IV - If becomes febrile or worsening leukocytosis, will broaden coverage to cover for enterococcus given recent cystoscopy - Follow up urine culture Qualifiers: Urinary tract infection type: acute cystitis Hematuria presence: with hematuria Qualified Code(s): N30.01 - Acute cystitis with hematuria (3) Bladder cancer Conclusion/Plan: He has history of bladder cancer treated with BCG this year. Follows with Urology at [place]. Most recent biopsy on March 02 was negative for malignancy per family. - Outpatient follow up - Lab Results Lab results reviewed: Yes Fish Bones: 03/26/19 23:00 03/26/19 14:38
[2019-03-26] MEDS: SODIUM CHLORIDE 0.9% 1,000 ML IV SCH (20:45)
[2019-03-26 20:52] LABS: INR 1.2 (0.8-1.2); PT - PROTHROMBIN TIME 13.3 secs (9.9-12.6)
[2019-03-26 23:03] LABS: HGB - HEMOGLOBIN 13.2 g/dL (14.0-18.0)
[2019-03-26] MEDS ORDERED: LIDOCAINE 2% URO-JET 5 ML SYRINGE UR ONE (23:20)
[2019-03-27] MEDS: SODIUM CHLORIDE FLUSH 0.9% 10 ML SYRINGE IVP SCH ×3 (00:18→20:05)
[2019-03-27 05:39] LABS: BASOPHILS % (AUTO) 0.4 %; EOSINOPHILS # (AUTO) 0.2 10^3/uL (0.0-0.7); EOSINOPHILS % (AUTO) 1.7 %; HGB - HEMOGLOBIN 12.8 g/dL (14.0-18.0); LYMPHOCYTES # (AUTO) 1.7 10^3/uL (1.5-3.5); LYMPHOCYTES % (AUTO) 18.3 %; MEAN CORPUSCULAR HEMOGLOBIN 29.2 pg (27.0-31.0); MEAN CORPUSCULAR HGB CONC 32.7 g/dL (32.0-36.0); MEAN CORPUSCULAR VOLUME 89.3 fL (80.0-94.0); MONOCYTES # (AUTO) 0.8 10^3/uL (0.0-1.0); MONOCYTES % (AUTO) 8.3 %; NEUTROPHILS # (AUTO) 6.7 10^3/uL (1.5-6.6); PLT - PLATELET COUNT 159 10^3/uL (130-450); RED BLOOD COUNT 4.38 10^6/uL (4.70-6.10); RED CELL DISTRIBUTION WIDTH 13.6 % (12.0-15.0); WHITE BLOOD COUNT 9.5 x10^3/uL (4.8-10.8)
[2019-03-27 05:50] LABS: CALCIUM 8.2 mg/dL (8.5-10.3); CREATININE 0.9 mg/dL (0.6-1.2)
[2019-03-27] MEDS: SODIUM CHLORIDE 0.9% 1,000 ML IV SCH (11:04)
[2019-03-27] MEDS ORDERED: IOVERSOL 320 100 ML VIAL IVP ONE ×2 (12:36→13:52)
--- NOTE | 2019-03-27 12:37 | PROVIDER PROGRESS NOTE ---
Subjective - Prog Note Date Prog Note Date: 03/27/19 Prog Note Time: 12:36 - Subjective Pt reports feeling: Improved Subjective: Flaco complains of penile discomfort where the paul is (meatus), and has some burning and fullness noted in his bladder. He denies chest pain, nausea, vomiting, a rash, shortness of breath, or a productive cough. He admits to bilateral flank pain that will come and go, intermittent nausea, and low abdominal discomfort at times. *96-hour Attestation: The patient will be discharged or transferred to a higher level of care within 96 hours. Current Medications - Current Medications Current Medications: Active Medications: Acetaminophen (Tylenol) 650 mg PO Q6HR PRN Belladonna Alkaloids/Opium (B & O Supp) 1 supp IA Q6HR PRN Hydromorphone HCl (Dilaudid Inj Carp) 0.5 mg IVP Q2HR PRN Sodium Chloride (Normal Saline 0.9%) 1,000 mls @ 75 mls/hr IV .[id number] NAVIN Ceftriaxone Sodium 1 gm/ (Sodium Chloride) 100 mls @ 200 mls/hr IV Q24H NAVIN Lidocaine HCl (Xylocaine Uro-Jet 2%) 2.5 ml UR Q6H PRN Tamsulosin HCl (Flomax) 0.4 mg PO DAILY NAVIN No Known Home Medications 03/27/19 Objective - Vital Signs/Intake & Output Reviewed Vital Signs: Yes Vital Signs: Vital Signs x48h Temp Pulse Resp BP Pulse Ox 03/27/19 08:00 36.6 C 72 16 142/67 H 97 Intake & Output: Intake & Output 03/24/19 03/25/19 03/26/19 03/27/19 23:59 23:59 23:59 23:59 Intake Total 7510 9896 Output Total [id number] [facility] -[phone] - Objective General Appearance: positive: No acute distress, Alert Eyes Bilateral: positive: PERRL ENT: positive: Pharynx nml, No signs of dehydration Neck: positive: Nml inspection, Thyroid nml, No JVD, Trachea midline Respiratory: positive: Chest non-tender, No respiratory distress, Other (sca ttered crackles to bilateral low bases) Cardiovascular: positive: Regular rate & rhythm Abdomen: positive: Nml bowel sounds, Tenderness, Guarding Back: positive: CVA tenderness (R) (mild discomfort with deep palpation), CVA t enderness (L) Skin: positive: Color nml, No rash, Warm, Dry Extremities: positive: Non-tender, Full ROM, No pedal edema Neurologic/Psychiatric: positive: Oriented x3, CN's nml (2-12), Motor nml, Sensation nml, Mood/affect nml Reflexes: Bicep (R): 3+, Bicep (L): 3+ - Lab Results Fish Bones: 03/27/19 05:10 03/27/19 05:10 Other Labs: Lab Results x24hrs 03/27/19 03/27/19 03/26/19 Range/Units 05:10 05:10 23:00 WBC 9.5 (4.8-10.8) x10^3/uL RBC 4.38 L (4.70-6.10) 10^6/uL Hgb 12.8 L 13.2 L (14.0-18.0) g/dL Hct 39.1 L 39.5 L (42.0-52.0) % MCV 89.3 (80.0-94.0) fL MCH 29.2 (27.0-31.0) pg MCHC 32.7 (32.0-36.0) g/dL RDW 13.6 (12.0-15.0) % Plt Count 159 (130-450) 10^3/uL MPV 9.0 (7.4-11.4) fL Neut # (Auto) 6.7 H (1.5-6.6) 10^3/uL Lymph # (Auto) 1.7 (1.5-3.5) 10^3/uL [place] # (Auto) 0.8 (0.0-1.0) 10^3/uL Eos # (Auto) 0.2 (0.0-0.7) 10^3/uL Baso # (Auto) 0.0 (0.0-0.1) 10^3/uL Absolute Nucleated RBC 0.00 x10^3/uL Nucleated RBC % 0.0 /100WBC PT (9.9-12.6) secs INR (0.8-1.2) Sodium 141 (135-145) mmol/L Potassium 3.9 (3.5-5.0) mmol/L Chloride 106 (101-111) mmol/L Carbon Dioxide 25 (21-32) mmol/L Anion Gap 10.0 (6-13) BUN 21 H (6-20) mg/dL Creatinine 0.9 (0.6-1.2) mg/dL Estimated GFR (MDRD) 81 L (>89) Glucose 98 (70-100) mg/dL Calcium 8.2 L (8.5-10.3) mg/dL Total Bilirubin (0.2-1.0) mg/dL AST (10-42) IU/L ALT (10-60) IU/L Alkaline Phosphatase (42-121) IU/L Total Protein (6.7-8.2) g/dL Albumin (3.2-5.5) g/dL Globulin (2.1-4.2) g/dL Albumin/Globulin Ratio (1.0-2.2) Lipase (22-51) U/L Urine Color Urine Clarity (CLEAR) Urine pH (5.0-7.5) PH Ur Specific [place] (1.002-1.030) Urine Protein (NEGATIVE) mg/dL Urine Glucose (UA) (NEGATIVE) mg/dL Urine Ketones (NEGATIVE) mg/dL Urine Occult Blood (NEGATIVE) Urine Nitrite (NEGATIVE) Urine Bilirubin (NEGATIVE) Urine Urobilinogen (NORMAL) E.U./dL Ur Leukocyte Esterase (NEGATIVE) Urine RBC (0-5) /HPF Urine WBC (0-3) /HPF Ur Squamous Epith Cells (<= Few) Urine Bacteria (None Seen) /HPF Ur Microscopic Review Urine Culture Comments 03/26/19 03/26/19 03/26/19 Range/Units 18:41 14:38 14:38 WBC (4.8-10.8) x10^3/uL RBC (4.70-6.10) 10^6/uL Hgb (14.0-18.0) g/dL Hct (42.0-52.0) % MCV (80.0-94.0) fL MCH (27.0-31.0) pg MCHC (32.0-36.0) g/dL RDW (12.0-15.0) % Plt Count (130-450) 10^3/uL MPV (7.4-11.4) fL Neut # (Auto) (1.5-6.6) 10^3/uL Lymph # (Auto) (1.5-3.5) 10^3/uL [place] # (Auto) (0.0-1.0) 10^3/uL Eos # (Auto) (0.0-0.7) 10^3/uL Baso # (Auto) (0.0-0.1) 10^3/uL Absolute Nucleated RBC x10^3/uL Nucleated RBC % /100WBC PT 13.3 H (9.9-12.6) secs INR 1.2 (0.8-1.2) Sodium 139 (135-145) mmol/L Potassium 4.2 (3.5-5.0) mmol/L Chloride 103 (101-111) mmol/L Carbon Dioxide 23 (21-32) mmol/L Anion Gap 13.0 (6-13) BUN 27 H (6-20) mg/dL Creatinine 1.0 (0.6-1.2) mg/dL Estimated GFR (MDRD) 72 L (>89) Glucose 144 H (70-100) mg/dL Calcium 9.3 (8.5-10.3) mg/dL Total Bilirubin 1.0 (0.2-1.0) mg/dL AST 19 (10-42) IU/L ALT 17 (10-60) IU/L Alkaline Phosphatase 65 (42-121) IU/L Total Protein 7.4 (6.7-8.2) g/dL Albumin 4.4 (3.2-5.5) g/dL Globulin 3.0 (2.1-4.2) g/dL Albumin/Globulin Ratio 1.5 (1.0-2.2) Lipase 24 (22-51) U/L Urine Color RED/BLOODY Urine Clarity HAZY (CLEAR) Urine pH 7.0 (5.0-7.5) PH Ur Specific [place] <=1.005 (1.002-1.030) Urine Protein >=300 H (NEGATIVE) mg/dL Urine Glucose (UA) (NEGATIVE) mg/dL Urine Ketones (NEGATIVE) mg/dL Urine Occult Blood LARGE H (NEGATIVE) Urine Nitrite POSITIVE H (NEGATIVE) Urine Bilirubin NEGATIVE (NEGATIVE) Urine Urobilinogen 4 H (NORMAL) E.U./dL Ur Leukocyte Esterase MODERATE H (NEGATIVE) Urine RBC TNTC H (0-5) /HPF Urine WBC 11-25 H (0-3) /HPF Ur Squamous Epith Cells NONE SEEN (<= Few) Urine Bacteria None Seen (None Seen) /HPF Ur Microscopic Review INDICATED Urine Culture Comments INDICATED 03/26/19 Range/Units 14:38 WBC 13.1 H (4.8-10.8) x10^3/uL RBC 5.14 (4.70-6.10) 10^6/uL Hgb 15.4 (14.0-18.0) g/dL Hct 45.3 (42.0-52.0) % MCV 88.1 (80.0-94.0) fL MCH 30.0 (27.0-31.0) pg MCHC 34.0 (32.0-36.0) g/dL RDW 13.4 (12.0-15.0) % Plt Count 196 (130-450) 10^3/uL MPV 8.7 (7.4-11.4) fL Neut # (Auto) 11.4 H (1.5-6.6) 10^3/uL Lymph # (Auto) 0.9 L (1.5-3.5) 10^3/uL [place] # (Auto) 0.7 (0.0-1.0) 10^3/uL Eos # (Auto) 0.0 (0.0-0.7) 10^3/uL Baso # (Auto) 0.0 (0.0-0.1) 10^3/uL Absolute Nucleated RBC 0.00 x10^3/uL Nucleated RBC % 0.0 /100WBC PT (9.9-12.6) secs INR (0.8-1.2) Sodium (135-145) mmol/L Potassium (3.5-5.0) mmol/L Chloride (101-111) mmol/L Carbon Dioxide (21-32) mmol/L Anion Gap (6-13) BUN (6-20) mg/dL Creatinine (0.6-1.2) mg/dL Estimated GFR (MDRD) (>89) Glucose (70-100) mg/dL Calcium (8.5-10.3) mg/dL Total Bilirubin (0.2-1.0) mg/dL AST (10-42) IU/L ALT (10-60) IU/L Alkaline Phosphatase (42-121) IU/L Total Protein (6.7-8.2) g/dL Albumin (3.2-5.5) g/dL Globulin (2.1-4.2) g/dL Albumin/Globulin Ratio (1.0-2.2) Lipase (22-51) U/L Urine Color Urine Clarity (CLEAR) Urine pH (5.0-7.5) PH Ur Specific [place] (1.002-1.030) Urine Protein (NEGATIVE) mg/dL Urine Glucose (UA) (NEGATIVE) mg/dL Urine Ketones (NEGATIVE) mg/dL Urine Occult Blood (NEGATIVE) Urine Nitrite (NEGATIVE) Urine Bilirubin (NEGATIVE) Urine Urobilinogen (NORMAL) E.U./dL Ur Leukocyte Esterase (NEGATIVE) Urine RBC (0-5) /HPF Urine WBC (0-3) /HPF Ur Squamous Epith Cells (<= Few) Urine Bacteria (None Seen) /HPF Ur Microscopic Review Urine Culture Comments - Diagnostic Imaging Diagnostic Imaging Results: positive: Final report reviewed Diagnostic Imaging Comments: EXAM: CT ABDOMEN AND PELVIS EXAM DATE: 03/27/2019 01:50 PM IMPRESSION: 1. Paul catheter within the bladder, with bladder gas presumably related to the presence of the catheter. 2. New lobulated, multifocal soft tis diego density within the bladder presumably represents blood clot in the setting of gross hematuria. Tumor cannot be excluded. 3. New very mild streaky/hazy opacity around the bladder could represent edema/inflammation. 4. Nonobstructing right nephrolithiasis redemonstrated. 5. No CT evidence of pyelonephritis. 6. Prostate enlargement redemonstrated. 7. Additional stable chronic findings, as above. ABX Reporting Has patient been on IV antibiotics over the past 48 hours?: Yes Assessment/Plan - Problem List (1) Gross hematuria Impression: - Bleeding started at home in which the patient notes dark blood followed by bright red blood prompting an ED visit - Continues on continuous bladder irrigation per primary Urology team - Continue manual irrigation per nursing every 4 hours until clots resolve - Belladona suppositories Q6H PRN- encouraged to use - Lidocaine jelly for penile meatus discomfort - Abdominal/pelvic CT with contrast show no changes including a 9 mm right kidney stone which is non-obstructing, a 7 mm left upper lobe lung nodule, and multifocal soft tissue densities within the bladder - Per Kentrell Castro MD, paul should remain in place for about 1 week post hospital stay and does not recommend changing paul to a regular size prior to discharge Plan: Continue CBI, Q4H manual irrigation, belladona suppositories Q6H, lidocaine jelly, tylenol or dilaudid if needed (2) Bladder cancer Impression: - Patient had a bladder wall biopsy on 03/02 showing NO cancer, per patient - I have requested Urology records from [facility] - Patient sees Kentrell Castro MD Urology - I have spoken to him today to share CT findings of which he is fine with and blood clots are likely a result of acute infection Plan: Continue to run CBI, monitor for improvement of hematuria (3) Right nephrolithiasis Impression: - CT of abdomen/pelvis shows a non-obstructing right kidney stone measuring 9 mm in the right renal calculus Plan: Start Flomax to assist with passage, treat symptoms (4) UTI (urinary tract infection) Impression: - Urinalysis shows likely acute infection, urine culture is pending - + nitrites, so could be e. coli strain - Started on Rocephin, continues Q24 hours - Patient is allergic to Bactrim, so will need an extended course of antibiotics using a flourquinalone (21-days minimum) to penetrate the prostate Plan: Continue to treat, await final cultures Qualifiers: Urinary tract infection type: acute cystitis Hematuria presence: with hematuria Qualified Code(s): N30.01 - Acute cystitis with hematuria (5) Penile irritation Impression: - Becomes worse with urine that leaks around meatus when needing manual irrigation - Lidocaine jelly helps, belladona suppositories also have been helping Plan: Continue to manually irrigate Q4H, continue to monitor for improvement (6) Pulmonary nodule, left Impression: - 7 MM in left upper lobe - The patient has been previously told of this finding - Denies bloody sputum, increased cough or recent pneumonia - Patient admits to upcoming follow up outpatient - Less worrisome since it is a single nodule, and the location NOT being in the right upper lobe Plan: Continue to monitor, recommend follow up as scheduled (7) Atelectasis, bilateral Impression: - Findings from CT today shows pulmonary consolidation - Ordering incentive spirometry - Stopping IV fluids - Scattered crackles on exam bilaterally Plan: Continue to monitor (8) History of transurethral resection of prostate Impression: - Evidence of this on CT, also reported from patient- unknown year Plan: Continue CBI, starting Flomax for right kidney stone (9) Acute urinary retention Impression: - Patient described how since his hematuria started, he also was not able to urinate along with having dysuria - Will be leaving the indwelling paul in place upon discharge per Urology- Kentrell Castro MD at [facility] Plan: Continue CBI per urology, manual bladder irrigations Q4H, monitor for improvement in hematuria
[2019-03-27] MEDS: LIDOCAINE 2% URO-JET 5 ML SYRINGE UR PRN ×2 (13:10→22:16)
[2019-03-27] MEDS: OPIUM/BELLADONNA 60/16.2MG SUPPOSITORY PR PRN (14:02)
--- NOTE | 2019-03-27 15:07 | CT Report ---
Reason: gross hematuria, evaluate for pyelonephritis Procedure Date: 03/27/2019 Accession Number: [id number] / [id number] Procedure: CT - Abdomen/Pelvis W CPT Code: FULL RESULT: EXAM: CT ABDOMEN AND PELVIS EXAM DATE: 03/27/2019 01:50 PM. CLINICAL HISTORY: Gross hematuria, evaluate for pyelonephritis. COMPARISONS: CT ABDOMEN, PELVIS W/W 02/17/2019 5:38 PM. TECHNIQUE: Routine helical CT imaging was performed through the abdomen and pelvis. IV contrast: OPTI 320 90ML. Enteric contrast: No. Reconstructions: Coronal and sagittal. In accordance with CT protocol optimization, one or more of the following dose reduction techniques were utilized for this exam: automated exposure control, adjustment of mA and/or KV based on patient size, or use of iterative reconstructive technique. FINDINGS: Lung Bases: Stable right hemidiaphragm elevation. Similar adjacent pulmonary consolidation is compatible with atelectasis. 7 mm pleural-based nodule at the anterior medial margin of the left upper lobe is without change. Liver: Normal. No masses. Gallbladder/Bile Ducts: Unremarkable. Spleen: Normal. Pancreas: Normal. Adrenal Glands: Normal. Kidneys: Stable nonobstructing 9 mm right renal calculus. No ureteral calculi, hydronephrosis or hydroureter demonstrated. Single tiny bilateral renal hypodensities are too small to definitely characterize but are stable and likely represent cysts. No definite masses. Stable very mild bilateral perinephric stranding. No pastor pyelonephritis demonstrated. Peritoneal Cavity/Bowel: Normal. No free fluid, free air or adenopathy. No masses or acute inflammatory process. Redundant sigmoid colon incidentally noted. The appendix is well visualized and normal. Pelvic Organs: Shelley catheter within the bladder with mild bladder distention. Very small bladder diverticulum demonstrated. There is mild to moderate gas within the bladder which presumably is related to the catheter. There is substantial new lobulated, nodular and ill-defined soft tissue density within the bladder which in the setting of gross hematuria is most consistent with blood clots. Neoplasm cannot be excluded. There is new very mild hazy/strand-like density around the bladder which could represent edema or inflammation. Prostate enlargement an apparent TURP defect redemonstrated. Vasculature: Mild to moderate calcifications, without aneurysm. Bones: No acute abnormality. Stable mild degenerative/chronic findings. Other: Stable fat-containing left inguinal hernia. IMPRESSION: 1. Shelley catheter within the bladder, with bladder gas presumably related to the presence of the catheter. 2. New lobulated, multifocal soft tissue density within the bladder presumably represents blood clot in the setting of gross hematuria. Tumor cannot be excluded. 3. New very mild streaky/hazy opacity around the bladder could represent edema/inflammation. 4. Nonobstructing right nephrolithiasis redemonstrated. 5. No CT evidence of pyelonephritis. 6. Prostate enlargement redemonstrated. 7. Additional stable chronic findings, as above. RADIA
[2019-03-27] MEDS ORDERED: HYDROmorphone 1 MG/ML CARPUJECT IVP PRN (15:42)
[2019-03-27 17:05] LABS: HGB - HEMOGLOBIN 14.4 g/dL (14.0-18.0)
[2019-03-27] MEDS: TAMSULOSIN 0.4 MG CAPSULE PO SCH (18:36)
[2019-03-27] MEDS ORDERED: cefTRIAXone 1 GM in SODIUM CHLORIDE 0.9% MINIBAG 100 ML IV SCH (20:00)
[2019-03-28] MEDS: SODIUM CHLORIDE FLUSH 0.9% 10 ML SYRINGE IVP SCH ×4 (01:51→23:42)
[2019-03-28] MEDS: TAMSULOSIN 0.4 MG CAPSULE PO SCH (08:36)
[2019-03-28] MEDS: CIPROFLOXACIN 250 MG TABLET PO SCH ×2 (14:24→20:33)
[2019-03-28] MEDS: LIDOCAINE 2% URO-JET 5 ML SYRINGE UR PRN (16:28)
--- NOTE | 2019-03-28 16:36 | PROVIDER PROGRESS NOTE ---
Subjective - Prog Note Date Prog Note Date: 03/28/19 Prog Note Time: 16:36 - Subjective Pt reports feeling: Improved Subjective: Dilip states that he has no further bladder discomfort and has been trying to drink more liquids this afternoon. He denies new symptoms such as chest pain, headaches, nausea, vomiting, diarrhea, a new rash, shortness of breath, or a new cough. * Leaking around the paul, and some blood clots remaining with manual irrigation are preventing him from discharge this evening. Also running higher blood pressures 186/75, which may be caused by the patient drinking extra. Patient is encouraged to get up this evening for his PM meal, and ambulate when he can. Current Medications - Current Medications Current Medications: Active Medications: Acetaminophen (Tylenol) 650 mg PO Q6HR PRN Belladonna Alkaloids/Opium (B & O Supp) 1 supp NJ Q6HR PRN Ciprofloxacin (Cipro) 500 mg PO BID NAVIN Lidocaine HCl (Xylocaine Uro-Jet 2%) 2.5 ml UR Q6H PRN Tamsulosin HCl (Flomax) 0.4 mg PO DAILY [facility] HOME meds: No Known Home Medications 03/27/19 Objective - Vital Signs/Intake & Output Reviewed Vital Signs: Yes Vital Signs: Vital Signs x48h BP 03/28/19 08:43 132/55 H Intake & Output: Intake & Output 03/25/19 03/26/19 03/27/19 03/28/19 23:59 23:59 23:59 23:59 Intake Total 7510 89030 06181 Output Total 53771 52236 9354 Balance -6790 236 1256 - Objective General Appearance: positive: No acute distress, Alert Eyes Bilateral: positive: PERRL, No lid inflammation ENT: positive: Pharynx nml, No signs of dehydration Neck: positive: Thyroid nml, No JVD, Trachea midline Respiratory: positive: Chest non-tender, No respiratory distress, Breath sounds nml Cardiovascular: positive: Regular rate & rhythm, No gallop, Bradycardia, Systolic murmur Peripheral Pulses: 1+ Radial (R), 1+ Radial (L) Abdomen: positive: Non-tender, Nml bowel sounds Back: positive: Nml inspection Skin: positive: Color nml, No rash, Warm, Dry Extremities: positive: Non-tender, Full ROM, Nml appearance, No pedal edema Neurologic/Psychiatric: positive: Oriented x3, CN's nml (2-12), Motor nml, Sensation nml, Mood/affect nml Reflexes: Bicep (R): 3+, Bicep (L): 3+ - Lab Results Fish Bones: 03/27/19 17:00 03/27/19 05:10 Other Labs: Lab Results x24hrs 03/27/19 03/27/19 Range/Units 17:00 17:00 Hgb 14.4 (14.0-18.0) g/dL Hct 43.8 (42.0-52.0) % B-Natriuretic Peptide 52 (5-100) pg/mL ABX Reporting Has patient been on IV antibiotics over the past 48 hours?: No Assessment/Plan - Problem List (1) Gross hematuria Impression: - Bleeding started at home in which the patient notes dark blood followed by bright red blood prompting an ED visit - Status post continuous bladder irrigation per primary Urology team - Status post manual irrigation per nursing every 4 hours until clots resolve, now only as needed - Belladona suppositories Q6H PRN- encouraged to use - Lidocaine jelly for penile meatus discomfort - Abdominal/pelvic CT with contrast show no changes including a 9 mm right kidney stone which is non-obstructing, a 7 mm left upper lobe lung nodule, and multifocal soft tissue densities within the bladder - Per Kentrell Castro MD, paul should remain in place for about 1 week post hospital stay Plan: Change paul this evening to ensure easier compliance at home, belladona suppositories Q6H, lidocaine jelly, tylenol or dilaudid if needed (2) Bladder cancer Impression: - Patient had a bladder wall biopsy on 03/02 showing NO cancer, per patient - I have requested Urology records from [facility] - Patient sees Kentrell Castro MD Urology - I have spoken Urologist to share CT findings of which he is fine with and blood clots are likely a result of acute infection Plan: Monitor for hematuria (3) Right nephrolithiasis Impression: - CT of abdomen/pelvis shows a non-obstructing right kidney stone measuring 9 mm in the right renal calculus Plan: Continue Flomax to assist with passage, treat symptoms (4) UTI (urinary tract infection) Impression: - Urinalysis shows likely acute infection, urine culture does not identify a pathogen - + nitrites, so could be e. coli strain - Started on Rocephin, continues Q24 hours- now stopped - Patient is allergic to Bactrim, so was started on oral Cipro today, (28-days minimum) to penetrate the prostate Plan: Continue to treat, start oral Cipro today Qualifiers: Urinary tract infection type: acute cystitis Hematuria presence: with hematuria Qualified Code(s): N30.01 - Acute cystitis with hematuria (5) Penile irritation Impression: - Becomes worse with urine that leaks around meatus when needing manual irri gation - Lidocaine jelly helps, belladona suppositories also have been helping Plan: Continue to monitor, use belladona, and lidocaine topical jelly if needed (6) Pulmonary nodule, left Impression: - 7 MM in left upper lobe - The patient has been previously told of this finding - Denies bloody sputum, increased cough or recent pneumonia - Patient admits to upcoming follow up outpatient - Less worrisome since it is a single nodule, and the location NOT being in the right upper lobe Plan: Continue to monitor, recommend follow up as scheduled (7) Atelectasis, bilateral Impression: - Findings from CT showed pulmonary consolidation - Incentive spirometry per RT - No more IV fluids - Scattered crackles on exam bilaterally Plan: Continue to monitor (8) History of transurethral resection of prostate Impression: - Evidence of this on CT, also reported from patient- unknown year Plan: Continue Flomax for right kidney stone (9) Acute urinary retention Impression: - Patient described how since his hematuria started, he also was not able to urinate along with having dysuria - Will be leaving the indwelling paul in place upon discharge per Urology- Kentrell Castro MD at [facility] Plan: Continue indwelling paul
[2019-03-28] MEDS: ENOXAPARIN 40 MG/0.4 ML SYRINGE SUBQ SCH (18:17)
[2019-03-28] MEDS: SACCHAROMYCES BOULARDII 250 MG CAPSULE PO SCH (19:49)
[2019-03-29 05:34] LABS: BASOPHILS % (AUTO) 0.5 %; EOSINOPHILS # (AUTO) 0.3 10^3/uL (0.0-0.7); EOSINOPHILS % (AUTO) 3.7 %; LYMPHOCYTES # (AUTO) 1.5 10^3/uL (1.5-3.5); LYMPHOCYTES % (AUTO) 16.7 %; MEAN CORPUSCULAR HEMOGLOBIN 28.9 pg (27.0-31.0); MEAN CORPUSCULAR HGB CONC 32.2 g/dL (32.0-36.0); MEAN CORPUSCULAR VOLUME 89.8 fL (80.0-94.0); MEAN PLATELET VOLUME 8.7 fL (7.4-11.4); MONOCYTES # (AUTO) 0.7 10^3/uL (0.0-1.0); MONOCYTES % (AUTO) 7.9 %; NEUTROPHILS # (AUTO) 6.2 10^3/uL (1.5-6.6); PLT - PLATELET COUNT 169 10^3/uL (130-450); RED CELL DISTRIBUTION WIDTH 13.8 % (12.0-15.0); WHITE BLOOD COUNT 8.8 x10^3/uL (4.8-10.8)
[2019-03-29 05:47] LABS: ALBUMIN 3.3 g/dL (3.2-5.5); ALBUMIN/GLOBULIN RATIO 1.3 (1.0-2.2); BILIRUBIN,TOTAL 0.5 mg/dL (0.2-1.0); CALCIUM 8.6 mg/dL (8.5-10.3); CREATININE 0.9 mg/dL (0.6-1.2); TOTAL PROTEIN 5.9 g/dL (6.7-8.2)
--- NOTE | 2019-03-29 07:59 | Discharge Plan ---
Discharge Plan Problem Reviewed?: Yes Disposition: Home, Self Care Condition: Good Prescriptions: Opium/Belladonn 60/16.2MG Supp [B & O Supp] 1 supp FL Q6HR PRN #15 supp PRN Reason: Bladder Spasms Ciprofloxacin HCl [Cipro] 500 mg PO BID #50 tablet Saccharomyces Boulardii [Florastor] 250 mg PO BID #60 capsule Tamsulosin [Flomax] 0.4 mg PO DAILY #30 capsule Diet: Regular Activity Restrictions: Activity as Tolerated Shower Restrictions: No Instruction Topics: Ciprofloxacin tablets, Catheter Bag Urinary Empty Clean, Catheter Indwelling Urinary Dc, Leg Bag Care Dc Health Concerns: Hematuria (bleeding from your bladder) Bladder cancer Bladder spasms Urinary tract infection Kidney stone (right measuring 9 mm- non-obstructing) Indwelling paul Plan of Treatment: Leave paul in for 1 week or until follow up with primary care provider Continue to take Ciprofloxacin for a total of 28-days (25 more days) Use the Belladonna suppositories if you find that your catheter is leaking urine at home or if you have bladder discomfort Keep taking the Flomax to encourage passage of the 9 mm kidney stone See Urology as previously scheduled Social work was consulted to provide a list of volunteers who drive people off the [place] for appointments Care Goals: Prevent hospital stays/or ED visits Prevent recurrent infections Continue treatment/follow up for bladder cancer Assessment: The patient and his Nubia were agreeable to the plan of going home with an indwelling paul to prevent recurrence of hematuria. The most likely reason for this episode of bleeding was underlying prostatitis/cystitis (UTI) which requires an extended treatment of 25 more days. A probiotic should be taken for the next 2 months. Additional Instructions or Follow Up instructions: I have spoken to KALYAN Warren who set an appointment at Dr. Masters's clinic for this Sunday March 31, 2019 @ 10 AM to ensure follow up with the indwelling paul catheter. If your catheter leaks at home, please insert a Belladona suppository into your rectum, perform a flush as a last resort. Return to the ED or to the clinic for further issues. The most likely cause of this leaking is due to bladder spasms, which is relieved with the suppositories. No Smoking: If you smoke, Please STOP! Call for help. Follow-up with: Ramírez Masters DO [Primary Care Provider] -
[2019-03-29 08:05] VITALS: BP 165/66
--- NOTE | 2019-03-29 08:11 | DISCHARGE SUMMARY ---
"Discharge Summary Admit Date: 03/26/19 Discharge Date: 03/29/19 Discharging Provider: AMARJIT Esparza Primary Care Provider: Dr. Ramírez Masters Code Status: Attempt Resuscitation Condition at Discharge: Good Discharge Disposition: 01 Home, Self Care - DIAGNOSES Admission Diagnoses: Gross hematuria UTI (urinary tract infection) Bladder cancer Discharge Diagnoses with Status of Each Condition: Gross hematuria- resolved, now with only intermittent clots with vigorous flushing Bladder cancer- considered to be in remission, latest biopsies on 03/02/ were negative for carcinoma Right nephrolithiasis- non- obstructing measuring 9 mm, continued on Flomax to encourage passage Prostatitis- most likely culprit of harboring bacteria leading to acute infection, continued on Cipro PO to be continued for 25 days UTI (urinary tract infection)- new on this admission, no identifiable pathogen on cultures, but + nitrites, continue PO Cipro Penile irritation- resolved, smaller paul placed prior to discharge Pulmonary nodule- measuring 7 mm, patient was aware of this finding, upcoming pulmonary consult Atelectasis, bilateral- now with some right low lobe crackles, encouraged to continue I.S. at home S/P TURP (status post transurethral resection of prostate)- chronic, stable Acute urinary retention- likely will resolve upon paul removal and was caused by gross hematuria, continued on flomax for kidney stone passage which will also be beneficial upon paul removal Elevated blood pressure with diagnosis of hypertension- new on this admission, B/P readings up to 195/75, but may have been due to increased intentional water consumptions. Patient encouraged to drink when he is thirsty, but no in excess. Also advised to keep liquids to under 2L per day. Last B/P reading prior to discharge was 165/66 and heart rates in the 60's. He was not started on any antihypertensives while in the hospital, but this needs to be followed by PCP Acute blood loss anemia- Last H/H was 13.0/40.4, with a normal MCV, no dizziness, no hypotension, and is trending up, no blood transfusions were needed Elevated BUN- Likely due to bleeding, last was 23 Indwelling Paul catheter present- recommended by Urology to leave in place for up to one week to promote bladder decompression to reduce the risk of bleeding from the bladder wall - HPI History of Present Illness: HPI per Dr. Yousef: This is a 78 year old male with a past medical history significant for bladder cancer who presents from complaining of difficulty urinating. He underwent a bladder biopsy about three weeks which per the patient, was negative for malignancy. He was doing well up until this week when he developed hematuria. It initially resolved on it's own but today he was unable to void and had significant pain. He then began to pass blood clots. He reports doing well and denies fevers, abdominal pain, chest pain. Does report chills and feeling weak today. He felt felt faint earlier in the day but did not have a syncopal episode. He took Naproxen this morning without much reflief. He does not aspirin or anticoagulants. He follows with Urology at [place] where he was treated with BCG earlier this year. In the ER, a paul catheter was placed and gross hematuria with clots was noted. His Urologist was contacted by the ER physician who recommend continous bladder irrigation. The clots resolved and his hematuria began to clear. Urology recommended admission for observation and CBI. It was felt that transfer was not deemed necessary at this time as his hematuria was improving. I spoke with the patient and his family who would prefer to be observed here rather than transferred to [place] if management was unlikely to change. I did discuss with them that if his hematuria becomes more severe or does not resolve, they we may need to consider transfer the following day and they were agreeable to this. The patient is also requesting to be full code. He does not have a living will or put much though into his code status yet but would like everything to be done at this time. - CONSULTS | PROCEDURES Consultations: Urology- via phone Dr. Kentrell Castro - HOSPITAL COURSE Hospital Course: Gross hematuria- Bleeding started at home in which the patient notes dark blood followed by bright red blood prompting an ED visit - Status post continuous bladder irrigation per primary Urology team - Status post manual irrigation per nursing every 4 hours until clots resolve, now only as needed - Belladona suppositories Q6H PRN- encouraged to use - Lidocaine jelly for penile meatus discomfort- not continued at home as this was resolved - Abdominal/pelvic CT with contrast show no changes including a 9 mm right kidney stone which is non-obstructing, a 7 mm left upper lobe lung nodule, and multifocal soft tissue densities within the bladder - Per Kentrell Castro MD (Urology in [place]), paul should remain in pl [place] for about 1 week post hospital stay - The patient's indwelling paul was changed to ease the transition to home - The patient had one more episode of urine leaking around the catheter just prior to discharge, so a Belladona suppository was given, and instructions on how to irrigate at home were given as a last resort - This condition is resolved at the time of discharge Bladder cancer- Patient had a bladder wall biopsy on 03/02 showing NO cancer, per patient - Urology records from [place] in [place] were obtained showing negative for carcinoma in both prostatic urethra & bladder wall biopsies - Patient sees Kentrell Castro MD Urology, who I have spoken to share CT findings of which he is fine with and blood clots are likely a result of acute infection/prostatitis Right nephrolithiasis- CT of abdomen/pelvis shows a non-obstructing right kidney stone measuring 9 mm in the right renal calculus - Patient was continued on Flomax to assist with passage, treat symptoms UTI (urinary tract infection)/Prostatitis- Urinalysis shows likely acute infection, urine culture does not identify a pathogen - + nitrites, so could be e. coli strain - Started on Rocephin, continues Q24 hours- now stopped - Patient is allergic to Bactrim, so was started on oral Cipro, (28-days minimum) to penetrate the prostate - Continued on oral Cipro x 25 more days, also added a probiotic to be continued for 1 month longer than antibiotic end date Penile irritation- Became worse with urine that leaks around meatus when needing manual irrigation- now resolved Pulmonary nodule, left- 7 MM in left upper lobe - The patient has been previously told of this finding - Denies bloody sputum, increased cough or recent pneumonia - Patient admits to upcoming follow up outpatient - Less worrisome since it is a single nodule, and the location NOT being in the right upper lobe Atelectasis, bilateral- Findings from CT showed pulmonary consolidation - Incentive spirometry per RT - Right low lobe crackles on exam today, encouraged to continue I.S. at home History of transurethral resection of prostate- Evidence of this on CT, also reported from patient- unknown year - Continued on Flomax for right kidney stone to continue at home indefinitely Acute urinary retention- Patient described how since his hematuria started, he also was not able to urinate along with having dysuria - Patient was discharged with the indwelling paul in place upon discharge per Urology- Kentrell Castro MD at [facility] Disposition: Extra time was spent with both the patient and his regarding the hospital stay, hospital course, follow up, and testing results. Hand-outs were given on all teaching points, and on new medications. A follow up with PCP was pre-arranged prior to discharge for Sunday March 31, 2019 @ 10 AM. The patient was medically stable and discharged home with . His indwelling paul catheter remained in place. - ALLERGIES Allergies/Adverse Reactions: Allergies Allergy/AdvReac Type Severity Reaction Status Date / Time sulfamethoxazole Allergy Nausea Verified 03/26/19 14:01 [From Bactrim] trimethoprim [From Bactrim] Allergy Nausea Verified 03/26/19 14:01 - MEDICATIONS Home Medications: Ambulatory Orders Medication Instructions Recorded Confirmed Ciprofloxacin HCl [Cipro] 500 mg PO BID #50 tablet 03/29/19 Opium/Belladonn 60/16.2MG Supp [B 1 supp NV Q6HR PRN #15 supp 03/29/19 & O Supp] Saccharomyces Boulardii [Florastor] 250 mg PO BID #60 capsule 03/29/19 Tamsulosin [Flomax] 0.4 mg PO DAILY #30 capsule 03/29/19 - PHYSICAL EXAM AT DISCHARGE General Appearance: positive: No acute distress, Alert Eyes Bilateral: positive: PERRL ENT: positive: ENT inspection nml, Pharynx nml, No signs of dehydration Neck: positive: Thyroid nml, No JVD, Trachea midline Respiratory: positive: Chest non-tender, No respiratory distress, Breath sounds nml Cardiovascular: positive: Regular rate & rhythm, No gallop, Systolic murmur Peripheral Pulses: positive: 2+ Abdomen: positive: Non-tender, Nml bowel sounds Back: positive: Nml inspection Skin: positive: Color nml, No rash, Warm, Dry Extremities: positive: Non-tender, Full ROM, Nml appearance, No pedal edema Neurologic/Psychiatric: positive: Oriented x3, CN's nml (2-12), Motor nml, Sensation nml, Mood/affect nml Reflexes: Bicep (R): 3+, Bicep (L): 3+, Ankle (R): 3+, Ankle (L): 3+ - LABS Result Diagrams: 03/29/19 05:21 03/29/19 05:21 - DIAGNOSTIC IMAGING Diagnostic Imaging Results: Final report reviewed Diagnostic Imaging Results Comments: EXAM: CT ABDOMEN AND PELVIS EXAM DATE: 03/27/2019 01:50 PM IMPRESSION: 1. Paul catheter within the bladder, with bladder gas presumably related to the presence of the catheter. 2. New lobulated, multifocal soft tissue density within the bladder presumably represents blood clot in the setting of gross hematuria. Tumor cannot be excluded. 3. New very mild streaky/hazy opacity around the bladder could represent edema/inflammation. 4. Nonobstructing right nephrolithiasis redemonstrated. 5. No CT evidence of pyelonephritis. 6. Prostate enlargement redemonstrated. 7. Additional stable chronic findings, as above. - FOLLOW UP Follow Up: Disposition: Home Prescriptions: Opium/Belladonn 60/16.2MG Supp [B & O Supp] 1 supp NV Q6HR PRN #15 supp PRN Reason: Bladder Spasms Ciprofloxacin HCl [Cipro] 500 mg PO BID #50 tablet Saccharomyces Boulardii [Florastor] 250 mg PO BID #60 capsule Tamsulosin [Flomax] 0.4 mg PO DAILY #30 capsule Health Concerns: Hematuria (bleeding from your bladder), Bladder cancer, Bladder spasms, Urinary tract infection, Kidney stone (right measuring 9 mm- non- obstructing), Indwelling paul Plan of Treatment: Leave paul in for 1 week or until follow up with primary care provider Continue to take Ciprofloxacin for a total of 28-days (25 more days) Use the Belladonna suppositories if you find that your catheter is leaking urine at home or if you have bladder discomfort Keep taking the Flomax to encourage passage of the 9 mm kidney stone See Urology as previously scheduled Social work was consulted to provide a list of volunteers who drive people off the [place] for appointments Care Goals: Prevent hospital stays/or ED visits, Prevent recurrent infections, Continue treatment/follow up for bladder cancer Assessment: The patient and his Nubia were agreeable to the plan of going home with an indwelling paul to prevent recurrence of hematuria. The most likely reason for this episode of bleeding was underlying prostatitis/cystitis (UTI) which requires an extended treatment of 25 more days. A probiotic should be taken for the next 2 months. Additional Instructions or Follow Up instructions: I have spoken to KALYAN Warren who set an appointment at Dr. Masters's clinic for this Sunday March 31, 2019 @ 10 AM to ensure follow up with the indwelling paul catheter. If your catheter leaks at home, please insert a Belladona suppository into your rectum, perform a flush as a last resort. Return to the ED or to the clinic for further issues. The most likely cause of this leaking is due to bladder spasms, which is relieved with the suppositories. - TIME SPENT Time Spent in Discharge (Minutes): 55"
[2019-03-29] MEDS: CIPROFLOXACIN 250 MG TABLET PO SCH (08:47)
[2019-03-29] MEDS: TAMSULOSIN 0.4 MG CAPSULE PO SCH (08:48)
[2019-03-29] MEDS: ENOXAPARIN 40 MG/0.4 ML SYRINGE SUBQ SCH (08:48)
[2019-03-29] MEDS: SACCHAROMYCES BOULARDII 250 MG CAPSULE PO SCH (08:48)
[2019-03-29] MEDS: SODIUM CHLORIDE FLUSH 0.9% 10 ML SYRINGE IVP SCH (08:49)
[2019-03-29] MEDS: OPIUM/BELLADONNA 60/16.2MG SUPPOSITORY PR PRN (12:10)
== END 2019-03-29 13:40 | disposition home or self-care (01) | DRG 690 ==
LOC: ED 13:55 → MS2 20:00
PROVIDERS: ADMIT Internal Medicine; ATTEND Nurse Practitioner
DX: N30.01 Acute cystitis with hematuria (principal); R33.9 Retention of urine, unspecified; N41.0 Acute prostatitis; J98.11 Atelectasis; D62 Acute posthemorrhagic anemia; N20.0 Calculus of kidney; N40.1 Benign prostatic hyperplasia with lower urinary tract symptoms; R33.8 Other retention of urine; I10 Essential (primary) hypertension; T83.031A Leakage of indwelling urethral catheter, initial encounter; N48.89 Other specified disorders of penis; N32.89 Other specified disorders of bladder; Y84.6 Urinary catheterization as the cause of abnormal reaction of the patient, or of later complication, without mention of misadventure at the time of the procedure; Y92.230 Patient room in hospital as the place of occurrence of the external cause; Z90.79 Acquired absence of other genital organ(s); Z85.51 Personal history of malignant neoplasm of bladder; Z88.1 Allergy status to other antibiotic agents; Z98.890 Other specified postprocedural states
CPT/HCPCS: 36415; 51702; 51798; 74177; 80048; 80053; 81001; 83690; 83735; 83880; 85014; 85018; 85025; 85610; 87086; 96361; 96374; 96375; 99284; 99285; A9270; J1650; Q9967; 81003

== ENCOUNTER 2022-12-13 14:02 | Emergency (ER) | payer MEDICARE, BC ==
[2022-12-13 15:00] LABS: BASOPHILS % (AUTO) 0.6 %; EOSINOPHILS % (AUTO) 0.3 %; HCT - HEMATOCRIT 46.8 % (42.0-52.0); HGB - HEMOGLOBIN 15.5 g/dL (14.0-18.0); LYMPHOCYTES # (AUTO) 0.9 10^3/uL (1.5-3.5); LYMPHOCYTES % (AUTO) 13.3 %; MEAN CORPUSCULAR HEMOGLOBIN 29.6 pg (27.0-31.0); MEAN CORPUSCULAR HGB CONC 33.1 g/dL (32.0-36.0); MEAN CORPUSCULAR VOLUME 89.3 fL (80.0-94.0); MEAN PLATELET VOLUME 8.7 fL (7.4-11.4); MONOCYTES # (AUTO) 0.5 10^3/uL (0.0-1.0); MONOCYTES % (AUTO) 7.7 %; NEUTROPHILS % (AUTO) 77.9 %; PLT - PLATELET COUNT 182 10^3/uL (130-450); RED BLOOD COUNT 5.24 10^6/uL (4.70-6.10); RED CELL DISTRIBUTION WIDTH 12.7 % (12.0-15.0); WHITE BLOOD COUNT 6.5 x10^3/uL (4.8-10.8)
[2022-12-13 15:11] LABS: ALBUMIN 4.3 g/dL (3.2-5.5); ALBUMIN/GLOBULIN RATIO 1.4 (1.0-2.2); BILIRUBIN,TOTAL 0.8 mg/dL (0.2-1.0); CALCIUM 9.1 mg/dL (8.5-10.3); CREATININE 0.8 mg/dL (0.6-1.2); POTASSIUM 3.6 mmol/L (3.5-5.0); TOTAL PROTEIN 7.4 g/dL (6.7-8.2)
--- NOTE | 2022-12-13 15:35 | ED Physician Documentation ---
PD HPI ABD PAIN - Stated complaint Stated Complaint: DIARRHEA - Chief complaint Chief Complaint: Abd Pain - History obtained from History obtained from: Patient, Family - Additional information Additional information: 82-year-old gentleman with history of Parkinson's disease without dementia and localized bladder cancer was prescribed atropine eyedrops to be used orally by his primary care physician in early October. It took some time for them to get the prescription and it was started on November 21. They feel it caused some intestinal problems. He was passing only water and gas. They were treating this with antidiarrheals but without improvement. There is no pain. No nausea. No fevers. He has had weight loss but that preceded the current issue. 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) - Present Medications Home Medications: Ambulatory Orders Medication Instructions Recorded Confirmed Ciprofloxacin HCl [Cipro] 500 mg PO BID #50 tablet 03/29/19 Opium/Belladonn 60/16.2MG Supp [B 1 supp AK Q6HR PRN #15 supp 03/29/19 & O Supp] Oxybutynin [Ditropan] 5 mg PO TID PRN #30 tablet 03/29/19 Saccharomyces Boulardii [Florastor] 250 mg PO BID #60 capsule 03/29/19 Tamsulosin [Flomax] 0.4 mg PO DAILY #30 capsule 03/29/19 Glycopyrrolate [Robinul] 1 mg PO TID PRN #90 tablet 12/13/22 polyethylene glycoL 3350(BULK) 17 gm PO DAILY PRN #1 each 12/13/22 [Miralax] - Allergies Allergies/Adverse Reactions: Allergies Allergy/AdvReac Type Severity Reaction Status Date / Time sulfamethoxazole Allergy Nausea Verified 12/13/22 14:14 [From Bactrim] trimethoprim [From Bactrim] Allergy Nausea Verified 12/13/22 14:14 - Social History Does the pt smoke?: No Smoking Status: Never smoker Does the pt drink ETOH?: No Does the pt have substance abuse?: No - Immunizations Immunizations are current?: Yes - POLST Patient has POLST: No PD ED PE NORMAL - Vitals Vital signs reviewed: Yes - General General: Alert and oriented X 3, No acute distress - Abdomen Abdomen: Soft, Other (Hyperactive bowel sounds, nontender) - Rectal Rectal: Other (Rectal examination demonstrates no mass or stool within fingers reach.) - Extremities Extremities: No edema, No calf tenderness / cord - Neuro Neuro: Alert and oriented X 3, Normal speech Results - Vitals Vitals: Vital Signs - 24 hr 12/13/22 12/13/22 12/13/22 14:09 14:14 16:41 Temperature 37.1 C 37.1 C Heart Rate 84 84 59 L Respiratory 17 17 16 Rate Blood Pressure 179/78 H 179/78 H 155/68 H O2 Saturation 98 98 98 12/13/22 18:48 Temperature Heart Rate 55 L Respiratory 16 Rate Blood Pressure 158/79 H O2 Saturation 97 Oxygen O2 Source Room air - Labs Labs: Laboratory Tests 12/13/22 12/13/22 12/13/22 14:54 14:54 17:20 WBC 6.5 RBC 5.24 Hgb 15.5 Hct 46.8 MCV 89.3 MCH 29.6 MCHC 33.1 RDW 12.7 Plt Count 182 MPV 8.7 Neut # (Auto) 5.0 Lymph # (Auto) 0.9 L [place] # (Auto) 0.5 Eos # (Auto) 0.0 Baso # (Auto) 0.0 Absolute Nucleated RBC 0.00 Nucleated RBC % 0.0 Sodium 140 Potassium 3.6 Chloride 102 Carbon Dioxide 28 Anion Gap 10.0 BUN 29 H Creatinine 0.8 Estimated GFR (MDRD) 92 Glucose 130 H Calcium 9.1 Total Bilirubin 0.8 AST 14 ALT 16 Alkaline Phosphatase 65 Total Protein 7.4 Albumin 4.3 Globulin 3.1 Albumin/Globulin Ratio 1.4 Lipase 35 Urine Color YELLOW Urine Clarity HAZY Urine pH 5.5 Ur Specific [place] >=1.030 H Urine Protein TRACE Urine Glucose (UA) NEGATIVE Urine Ketones 15 H Urine Occult Blood SMALL H Urine Nitrite NEGATIVE Urine Bilirubin NEGATIVE Urine Urobilinogen 0.2 (NORMAL) Ur Leukocyte Esterase NEGATIVE Urine RBC 6-10 H Urine WBC 0-3 Ur Squamous Epith Cells RARE Squamous Urine Bacteria Few Ur Microscopic Review INDICATED Urine Culture Comments NOT INDICATED - Rads (name of study) CT of the abdomen pelvis demonstrates constipation and incidental findings outlined in the radiologist note Relevant Findings:: Final report received, EMP independent interpretation of test PD Medical Decision Making - ED course ED course: 82-year-old gentleman has been having odd bowel symptoms since starting atropine for oral secretions related to his parkinsonism. He has had only air and fluid output from his colon without formed stools. This is relatively painless and not associated with nausea. Rectal exam did not demonstrate a fecal impaction within fingers reach. However that is what it sounded like to me and a CT was done showing moderate amount of stool especially in the transverse colon which I think is causing the symptoms. He was administered laxatives. He would like to try something else other than the atropine for his oral secretions and he is prescribed glycopyrrolate for this but I cautioned the that this would also cause constipation. Departure - Departure Disposition: 01 Home, Self Care Clinical Impression: Constipation Condition: Good Record reviewed to determine appropriate education?: Yes Instructions: ED Constipation Prescriptions: polyethylene glycoL 3350(BULK) [Miralax] 17 gm PO DAILY PRN #1 each PRN Reason: Constipation Glycopyrrolate [Robinul] 1 mg PO TID PRN #90 tablet PRN Reason: drooling Comments: You were seen today for abdominal pain and bloating and gassiness and this is related to significant constipation in the transverse colon. We have to receive some laxative here and this should be very helpful. I am prescribing an alternative medication for the secretions. Of note this also has a side effect of constipation so should be used with caution, possibly with the laxative. Call your doctor to arrange a follow-up appointment, make the next available appointment. In the interim, return anytime if worse or if new symptoms develop. Discharge Date/Time: 12/13/22 18:49
[2022-12-13 17:23] LABS: BILIRUBIN,URINE NEGATIVE (NEGATIVE); GLUCOSE, URINE (UA) NEGATIVE (NEGATIVE); KETONES,URINE (UA) 15 mg/dL (NEGATIVE); LEUKOCYTE ESTERASE, URINE NEGATIVE (NEGATIVE); NITRITE,URINE NEGATIVE (NEGATIVE); OCCULT BLOOD,URINE SMALL (NEGATIVE); PH,URINE 5.5 PH (5.0-7.5); PROTEIN,URINE TRACE mg/dL (NEGATIVE); UROBILINOGEN,URINE 0.2 (NORMAL) E.U./dL (NORMAL)
[2022-12-13 17:25] LABS: CLARITY,URINE HAZY (CLEAR)
[2022-12-13 17:33] LABS: WBC,URINE 0-3 /HPF (0-3)
[2022-12-13 17:34] LABS: SQUAMOUS EPITHELIAL CELL,UR RARE Squamous (<= Few)
[2022-12-13 17:35] LABS: BACTERIA,URINE Few /HPF (None Seen)
[2022-12-13] MEDS ORDERED: bisacodyL 5 MG TABLET PO STA (18:17)
[2022-12-13] MEDS ORDERED: LACTULOSE 10 GM /15 ML UDC PO STA (18:17)
--- NOTE | 2022-12-13 18:31 | CT Report ---
PROCEDURE: ABDOMEN/PELVIS W INDICATIONS: iv only, abd discomfort CONTRAST: 100ml omni 300 TECHNIQUE: After the administration of IV contrast, 5 mm thick sections acquired from the diaphragms to the symp hysis. 5 mm thick coronal and sagittal reformats were acquired. For radiation dose reduction, the f ollowing was used: automated exposure control, adjustment of mA and/or kV according to patient size. COMPARISON: 03/27/2019 FINDINGS: Image quality: Excellent. Lung bases and heart: Unremarkable. Liver: Unremarkable. Gallbladder and biliary tree: Within normal limits Spleen: Unremarkable. Pancreas: Unremarkable. Adrenals: Unremarkable. Kidneys and ureters: There is a nonobstructing right-sided kidney stone seen, as on series 3 image 47 that measures 12 mm and 550 Hounsfield units. The kidneys demonstrate normal size and enhance symmet rically. There is no hydronephrosis. Bowel and peritoneum: No bowel distension. No pathologic free fluid. Elevation of the hepatic flexure of the colon is seen, which is observed anterior to the liver itself. There is a moderate amount of stool seen within the colon. Lymph nodes: No central or retroperitoneal adenopathy. Vessels: Unremarkable. PELVIS Reproductive organs: The prostate is enlarged, measuring 6.4 cm transversely. Bladder: Unremarkable. Lymph nodes: Unremarkable. Bones: No aggressive osseous abnormality. Mild dextroconvex scoliotic curvature is seen. Degenerative changes are seen, which are worst involving the lower lumbar spine. Other: A mild fat-containing left renal hernia is seen. IMPRESSION: There is a moderate amount of stool seen within the colon. Please correlate with clinical constipatio n. Additional findings: High riding hepatic flexure, as before. Nonobstructing left-sided kidney stone Focal lower lumbar spine degenerative change Enlarged prostate Mild fat-containing left inguinal hernia Reviewed by: Jesus Tsai MD on 12/13/2022 5:30 PM AKDT Approved by: Jesus Tsai MD on 12/13/2022 5:30 PM AKDT Station ID: [id number]
[2022-12-13] MEDS ORDERED: iohexoL-300 100 ML VIAL IVP ONE (18:32)
[2022-12-13 18:49] VITALS: BP 158/79
== END 2022-12-13 18:49 | disposition home or self-care (01) ==
LOC: ED 14:02
DX: K59.00 Constipation, unspecified (principal); G20 Parkinson's disease
CPT/HCPCS: 36415; 74177; 80053; 81001; 83690; 85025; 99284; A9270; 81003; 87086

== ENCOUNTER 2023-08-12 09:05 | Emergency (ER) | payer MEDICARE, BC ==
[2023-08-12 09:28] VITALS: O2SAT 99
--- NOTE | 2023-08-12 09:37 | ED Physician Documentation ---
PD HPI MALE - Stated complaint Stated Complaint: - Chief complaint Chief Complaint: Abd Pain - History obtained from History obtained from: Patient - History of Present Illness Timing - onset: How many weeks ago (1-2) Timing - details: Gradual onset, Still present (more consistent the past few days.), Intermittant Associated symptoms: Dysuria, Hematuria. No: Genital sore / lesion Similar symptoms before: Has not had sx before Review of Systems Constitutional: denies: Fever, Chills GI: denies: Abdominal Pain PD PAST MEDICAL HISTORY - Past Medical History Past Medical History: Yes Cardiovascular: None Respiratory: None Neuro: Parkinson's Endocrine/Autoimmune: None GI: None : Other HEENT: Other Derm: Other Other Past Medical History: bladder cancer, remission with yearly checks. 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) - Present Medications Home Medications: Ambulatory Orders Medication Instructions Recorded Confirmed cephALEXin [Keflex] 500 mg PO TID #20 cap 08/12/23 - Allergies Allergies/Adverse Reactions: Allergies Allergy/AdvReac Type Severity Reaction Status Date / Time sulfamethoxazole Allergy Nausea Verified 08/12/23 09:16 [From Bactrim] trimethoprim [From Bactrim] Allergy Nausea Verified 08/12/23 09:16 - Social History Does the pt smoke?: No Smoking Status: Never smoker Does the pt drink ETOH?: No Does the pt have substance abuse?: No - Immunizations Immunizations are current?: Yes - POLST Patient has POLST: No PD ED PE NORMAL - Vitals Vital signs reviewed: Yes - General General: Alert and oriented X 3, Well developed/nourished - Abdomen Abdomen: Soft, Non tender - Male Male : Deferred - Back Back: No CVA TTP - Derm Derm: Normal color, Warm and dry Results - Vitals Vitals: Vital Signs - 24 hr 08/12/23 08/12/23 08/12/23 10:10 12:16 12:18 Temperature 36.9 C Heart Rate 62 52 L 56 L Respiratory 18 18 18 Rate Blood Pressure 166/86 H 148/75 H 148/75 H O2 Saturation 99 99 99 08/12/23 14:11 Temperature Heart Rate Respiratory 17 Rate Blood Pressure O2 Saturation Oxygen O2 Source Room air - Labs Labs: Microbiology 08/12/23 09:35 Urine Culture - Final Urine,Random LESS THAN 10,000 COLONIES/ML polymicrobial growth including potential pathogens. This is suggestive of skin or other contamination. Laboratory Tests 08/12/23 08/12/23 08/12/23 09:35 09:54 09:54 WBC 5.5 RBC 4.94 Hgb 14.5 Hct 45.1 MCV 91.3 MCH 29.4 MCHC 32.2 RDW 13.3 Plt Count 178 MPV 9.0 Neut # (Auto) 4.3 Lymph # (Auto) 0.8 L [place] # (Auto) 0.4 Eos # (Auto) 0.0 Baso # (Auto) 0.0 Absolute Nucleated RBC 0.00 Nucleated RBC % 0.0 Sodium 141 Potassium 4.0 Chloride 104 Carbon Dioxide 32 Anion Gap 5.0 L BUN 33 H Creatinine 0.9 Estimated GFR (MDRD) 80 L Glucose 107 H Calcium 9.3 Total Bilirubin 0.6 AST 13 ALT 11 Alkaline Phosphatase 58 Total Protein 6.5 Albumin 4.1 Globulin 2.4 Albumin/Globulin Ratio 1.7 Lipase 19 Free PSA % Free PSA Total PSA Urine Color DARK YELLOW Urine Clarity SL. CLOUDY Urine pH 6.0 Ur Specific [place] >=1.030 H Urine Protein 100 H Urine Glucose (UA) NEGATIVE Urine Ketones TRACE Urine Occult Blood LARGE H Urine Nitrite NEGATIVE Urine Bilirubin SMALL H Urine Urobilinogen 0.2 (NORMAL) Ur Leukocyte Esterase NEGATIVE Urine RBC TNTC H Urine WBC 11-25 H Ur Squamous Epith Cells RARE Squamous Urine Bacteria Moderate H Urine Casts 0-2 Fine Granular Urine Mucus Few Strands Ur Microscopic Review INDICATED Urine Culture Comments INDICATED 08/12/23 09:54 WBC RBC Hgb Hct MCV MCH MCHC RDW Plt Count MPV Neut # (Auto) Lymph # (Auto) [place] # (Auto) Eos # (Auto) Baso # (Auto) Absolute Nucleated RBC Nucleated RBC % Sodium Potassium Chloride Carbon Dioxide Anion Gap BUN Creatinine Estimated GFR (MDRD) Glucose Calcium Total Bilirubin AST ALT Alkaline Phosphatase Total Protein Albumin Globulin Albumin/Globulin Ratio Lipase Free PSA 0.946 % Free PSA 29 Total PSA 3.238 H Urine Color Urine Clarity Urine pH Ur Specific [place] Urine Protein Urine Glucose (UA) Urine Ketones Urine Occult Blood Urine Nitrite Urine Bilirubin Urine Urobilinogen Ur Leukocyte Esterase Urine RBC Urine WBC Ur Squamous Epith Cells Urine Bacteria Urine Casts Urine Mucus Ur Microscopic Review Urine Culture Comments - Rads (name of study) abd/pelvic CT Relevant Findings:: Prelim report reviewed (no obvious tumors/etc in bladder. Right kidney stone in kidney. No urteral stones. ), EMP independent interpretation of test PD Medical Decision Making - ED course Complexity details: reviewed results (he does have evidence for UTI on UA. presume that is cause of the bleeding. Not on blood thinners. CT without obvious tumor/etc on bladder/kidney. Can treat as UTI with urology follow up for ? cystolscopy. ), considered differential, d/w patient Departure - Departure Disposition: 01 Home, Self Care Clinical Impression: Gross hematuria, UTI (urinary tract infection) Condition: Stable Record reviewed to determine appropriate education?: Yes Instructions: ED UTI Cystitis Male Follow-Up: Ramírez Masters DO [Primary Care Provider] - Prescriptions: cephALEXin [Keflex] 500 mg PO TID #20 cap Comments: Your urine shows the blood of course but also signs of an infection with white cells and bacteria. A bladder infection can be a cause of irritation leading to bleeding. Will treat your bladder infection with cephalexin 3 times daily for the next week. Hopefully this will allow for a decreasing and stopping of the bleeding over the next few days as the irritation in the bladder clears. Your CT scan did not show any obvious masses or tumors or passing stones to account for blood otherwise. Incidentally you do have a small stone in the right kidney within the kidney itself which is not where it would tend to bother you). Call your urology office and update them on this occurrence. They may want to see you if the bleeding does not stop over the next several days to a week. Otherwise it would be prudent for you to get the yearly cystoscopy perhaps sooner to ensure that there is not a small wall tumor or such in the bladder a ccounting for this in addition to the bladder infection. I sent a prescription to [facility] in [place]. Your blood count was normal so even though you have been urinating blood, you do have "room to spare" and that you will not be in problem if you still have some light bleeding still over the next few days. Forms: PCP List Discharge Date/Time: 08/12/23 15:12
[2023-08-12 09:50] LABS: BILIRUBIN,URINE SMALL (NEGATIVE); CLARITY,URINE SL. CLOUDY (CLEAR); GLUCOSE, URINE (UA) NEGATIVE (NEGATIVE); KETONES,URINE (UA) TRACE mg/dL (NEGATIVE); LEUKOCYTE ESTERASE, URINE NEGATIVE (NEGATIVE); NITRITE,URINE NEGATIVE (NEGATIVE); OCCULT BLOOD,URINE LARGE (NEGATIVE); PROTEIN,URINE 100 mg/dL (NEGATIVE); UROBILINOGEN,URINE 0.2 (NORMAL) E.U./dL (NORMAL)
[2023-08-12 10:02] LABS: BASOPHILS % (AUTO) 0.7 %; EOSINOPHILS % (AUTO) 0.2 %; HCT - HEMATOCRIT 45.1 % (42.0-52.0); HGB - HEMOGLOBIN 14.5 g/dL (14.0-18.0); LYMPHOCYTES # (AUTO) 0.8 10^3/uL (1.5-3.5); LYMPHOCYTES % (AUTO) 13.5 %; MEAN CORPUSCULAR HEMOGLOBIN 29.4 pg (27.0-31.0); MEAN CORPUSCULAR HGB CONC 32.2 g/dL (32.0-36.0); MEAN CORPUSCULAR VOLUME 91.3 fL (80.0-94.0); MONOCYTES # (AUTO) 0.4 10^3/uL (0.0-1.0); MONOCYTES % (AUTO) 7.4 %; NEUTROPHILS # (AUTO) 4.3 10^3/uL (1.5-6.6); PLT - PLATELET COUNT 178 10^3/uL (130-450); RED BLOOD COUNT 4.94 10^6/uL (4.70-6.10); RED CELL DISTRIBUTION WIDTH 13.3 % (12.0-15.0); WHITE BLOOD COUNT 5.5 x10^3/uL (4.8-10.8)
[2023-08-12 10:06] LABS: RBC,URINE TNTC /HPF (0-5)
[2023-08-12 10:07] LABS: BACTERIA,URINE Moderate /HPF (None Seen); CASTS, URINE 0-2 Fine Granular /LPF; MUCUS,URINE Few Strands; SQUAMOUS EPITHELIAL CELL,UR RARE Squamous (<= Few)
[2023-08-12 10:13] LABS: ALBUMIN 4.1 g/dL (3.2-5.5); ALBUMIN/GLOBULIN RATIO 1.7 (1.0-2.2); BILIRUBIN,TOTAL 0.6 mg/dL (0.2-1.0); CALCIUM 9.3 mg/dL (8.5-10.3); CREATININE 0.9 mg/dL (0.6-1.3); TOTAL PROTEIN 6.5 g/dL (6.4-8.9)
[2023-08-12] MEDS ORDERED: iohexoL-300 100 ML VIAL IVP ONE (10:52)
--- NOTE | 2023-08-12 11:45 | CT Report ---
PROCEDURE: ABDOMEN/PELVIS W INDICATIONS: hematuria 2-3 weeks CONTRAST: 100ml omni 300 TECHNIQUE: After the administration of intravenous contrast, 5 mm thick sections acquired from the diaphragms to the symphysis. 5 mm thick coronal and sagittal reformats were acquired. For radiation dose reducti on, the following was used: automated exposure control, adjustment of mA and/or kV according to apple ent size. COMPARISON: 12/13/2022 FINDINGS: Image quality: Excellent. Lung bases and heart: Chronic elevation of the right hemidiaphragm. Otherwise unremarkable. Liver: No solid mass. Mild diffuse hepatic steatosis. Gallbladder and biliary tree: No radiopaque stones or wall thickening. No biliary dilation. Spleen: No splenomegaly. Pancreas: No pancreatic ductal dilation. Adrenals: No adrenal nodule. Kidneys and ureters: No hydronephrosis. No renal cystic lesion which requires follow up. No solid mas s. There is a 1.4 cm maximum diameter right renal stone, which is nonobstructive. Bowel and peritoneum: No bowel distension. No pathologic free fluid. Lymph nodes: No central or retroperitoneal adenopathy. Vessels: No infrarenal aortic aneurysm. PELVIS Reproductive organs: Marked enlargement of the prostate. Bladder: No obvious bladder masses are identified. Contrast does not fill the bladder. There is inden tation on the base of bladder by prostate. Pelvic lymph nodes: No pelvic adenopathy by size criteria. Bones: No aggressive osseous abnormality. Other: No significant ventral or inguinal hernia. IMPRESSION: 1. 1.4 cm maximum diameter nonobstructing right renal stone. 2. No identifiable bladder mass. Study is not optimized for identifying bladder masses. 3. Marked enlargement of the prostate. Recommend potential urological consultation and correlation PSA. Reviewed by: Jacob Thurman MD on 08/12/2023 11:44 AM PST Approved by: Jacob Thurman MD on 08/12/2023 11:44 AM PST Station ID: [id number]
[2023-08-12 12:23] VITALS: BP 148/75
[2023-08-12] MEDS ORDERED: cefTRIAXone 1 GM VIAL IVP STA (12:40)
== END 2023-08-12 15:12 | disposition home or self-care (01) ==
LOC: ED 09:05
DX: N39.0 Urinary tract infection, site not specified (principal); R31.0 Gross hematuria; G20.A1 Parkinson's disease without dyskinesia, without mention of fluctuations; Z85.51 Personal history of malignant neoplasm of bladder
CPT/HCPCS: 36415; 74177; 80053; 81001; 83690; 84153; 84154; 85025; 87086; 99284; Q9967; 81003

== ENCOUNTER 2023-12-01 08:34 | Emergency (ER) | payer MEDICARE, BC ==
[2023-12-01 08:51] VITALS: O2SAT 98
[2023-12-01] MEDS: MINERAL OIL ENEMA 133 ML BOTTLE RC STA (09:28)
[2023-12-01 10:43] VITALS: BP 148/72
--- NOTE | 2023-12-01 10:46 | ED Physician Documentation ---
History of Present Illness - Stated complaint Stated Complaint: CONSTIPATION - Chief complaint Chief Complaint: Abd Pain - History obtained from History obtained from: Patient, Family () - Additonal information Additional information: Patient is an 83-year-old male with a history of Parkinson's presenting for evaluation of constipation. Patient states he has not had a bowel movement in 8 days. He has been using Dulcolax chewables without any bowel movements and states that that this usually helps him. Denies abdominal pain, rectal discomfort, vomiting, change in appetite.Patient has an appointment with his PCP for routine follow-up tomorrow. Patient states that he has talked to his primary care doctor about this in the past and does have a list of options to try at home from least invasive to most invasive but has not tried any other medications other than Dulcolax. He did buy enemas but is not able to give him to himself and is not able to assist. Denies history of any abdominal surgeries. Review of Systems Constitutional: denies: Fever Cardiac: denies: Chest pain / pressure Respiratory: denies: Dyspnea GI: reports: Constipation. 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) - Present Medications Home Medications: Ambulatory Orders Medication Instructions Recorded Confirmed Magnesium Citrate 296 ml PO ONCE PRN #296 ml 12/01/23 - Allergies Allergies/Adverse Reactions: Allergies Allergy/AdvReac Type Severity Reaction Status Date / Time sulfamethoxazole Allergy Nausea Verified 12/01/23 08:55 [From Bactrim] trimethoprim [From Bactrim] Allergy Nausea Verified 12/01/23 08:55 - Social History Does the pt smoke?: No Smoking Status: Never smoker Does the pt drink ETOH?: No Does the pt have substance abuse?: No - Immunizations Immunizations are current?: Yes - POLST Patient has POLST: No PD ED PE NORMAL - General General: Alert and oriented X 3, No acute distress, Other (Elderly, frail, thin appearing) - HEENT HEENT: Atraumatic - Neck Neck: Supple, no meningeal sign - Cardiac Cardiac: RRR, Strong equal pulses - Respiratory Respiratory: No respiratory distress, Clear bilaterally - Abdomen Abdomen: Normal bowel sounds, Soft, Non tender, Non distended - Rectal Rectal: Other (Soft stool present in rectal vault, no tenderness) - Derm Derm: Warm and dry - Neuro Neuro: Normal speech Results - Vitals Vitals: Vital Signs - 24 hr 12/01/23 12/01/23 08:41 10:38 Temperature 36.5 C Heart Rate 71 74 Respiratory 16 16 Rate Blood Pressure 158/68 H 148/72 H O2 Saturation 98 98 Oxygen O2 Source Room air PD Medical Decision Making - ED course Complexity details: re-evaluated patient, d/w patient, d/w family ED course: Patient is an 83-year-old male presenting for evaluation of constipation which she states has been ongoing for 8 days. He has a history of Parkinson's and this is a chronic issue for him. He has tried Dulcolax without any relief. He denies having any abdominal discomfort. No nausea or vomiting. No history of abdominal surgeries. He initially reported feeling like he has a break in his rectum and on digital exam does have soft stool in the rectum. Therefore we did offer an enema which she was agreeable to. After receiving the enema though he states he does not feel any discomfort or any need to have a bowel movement. He does not feel any urgency or any pressure. He was unable to have a bowel movement after a mineral enema but again also does not feel any urgency to have 1 and is resting comfortably. Therefore we discussed alternative options including the use of magnesium citrate which she is agreeable to trialing at home. He does have a regularly scheduled appointment with his PCP tomorrow. Patient and are in agreement regarding treatment plan as well is advised on concerning symptoms to return for. Abdominal exam remains benign. Departure - Departure Disposition: 01 Home, Self Care Clinical Impression: Constipation Condition: Stable Instructions: ED Constipation Prescriptions: Magnesium Citrate 296 ml PO ONCE PRN #296 ml PRN Reason: Constipation Comments: I have sent a prescription for a liquid to drink to help you with your constipation. This was sent to [facility] in [place]. Please use as directed. Please follow-up with Dr. Masters as scheduled tomorrow. Return to the ER with any worsening symptoms such as development of pain. Forms: PCP List Discharge Date/Time: 12/01/23 11:36
== END 2023-12-01 11:36 | disposition home or self-care (01) ==
LOC: ED 08:34
DX: K59.00 Constipation, unspecified (principal); G20.A1 Parkinson's disease without dyskinesia, without mention of fluctuations
CPT/HCPCS: 99283; A9270

== ENCOUNTER 2024-04-19 12:11 | Emergency (ER) | payer MEDICARE, BC ==
--- NOTE | 2024-04-19 15:33 | ED Physician Documentation ---
History of Present Illness - Stated complaint Stated Complaint: WEAKNESS - History obtained from History obtained from: Patient, Family - Additonal information Additional information: 83-year-old gentleman with history of Parkinson's presents with his for the evaluation of fecal impaction and what he thinks may be a bladder infection. He developed hematuria today with an episode of incontinence and has not had a bowel movement in about a week. No recent laxative use. No abdominal pain. 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) - Present Medications Home Medications: Ambulatory Orders Medication Instructions Recorded Confirmed Magnesium Citrate 296 ml PO ONCE PRN #296 ml 12/01/23 Nitrofurantoin [Macrobid] 1 cap PO BID #10 cap 04/19/24 - Allergies Allergies/Adverse Reactions: Allergies Allergy/AdvReac Type Severity Reaction Status Date / Time sulfamethoxazole Allergy Nausea Verified 12/01/23 08:55 [From Bactrim] trimethoprim [From Bactrim] Allergy Nausea Verified 12/01/23 08:55 - Social History Does the pt smoke?: No Smoking Status: Never smoker Does the pt drink ETOH?: No Does the pt have substance abuse?: No - Immunizations Immunizations are current?: Yes - POLST Patient has POLST: No PD ED PE NORMAL - Vitals Vital signs reviewed: Yes - General General: Alert and oriented X 3, No acute distress - Abdomen Abdomen: Normal bowel sounds, Soft, Non tender - Male Male : Other (There is a fecal impaction in the vault, no blood. Enema placed during exam.) - Derm Derm: Normal color, Warm and dry - Neuro Neuro: Alert and oriented X 3 Results - Vitals Vitals: Oxygen O2 Source Room air PD Medical Decision Making - ED course ED course: This is an 83-year-old gentleman with Parkinson's who presents for concerns for fecal impaction and bladder infection. He had an enema placed and had a large volume stool and felt much better. Urinalysis was positive so we will treat given his symptoms. Departure - Departure Disposition: 01 Home, Self Care Clinical Impression: Fecal impaction UTI (urinary tract infection) Qualifiers: Urinary tract infection type: acute cystitis Hematuria presence: with hematuria Qualified Code(s): N30.01 - Acute cystitis with hematuria Condition: Good Record reviewed to determine appropriate education?: Yes Instructions: ED UTI Cystitis Male, ED Impaction Fecal Treated Prescriptions: Nitrofurantoin [Macrobid] 1 cap PO BID #10 cap Comments: I sent your prescription electronically to the [facility] in [place]. You can take MiraLAX which is available [id number] as needed for constipation and would take that early and often if you get constipated. Follow-up with your primary care physician with consideration for urology referral. You do have quite a large prostate on exam as well. We will culture your urine, the results should be done in 48-72 hours. If an antibiotic change is necessary we will call you. Return if worse in the meantime, especially if you develop increasing flank pain, fevers, or cannot keep down the medication.
[2024-04-19 15:34] LABS: BILIRUBIN,URINE NEGATIVE (NEGATIVE); CLARITY,URINE CLEAR (CLEAR); GLUCOSE, URINE (UA) NEGATIVE (NEGATIVE); KETONES,URINE (UA) TRACE mg/dL (NEGATIVE); LEUKOCYTE ESTERASE, URINE TRACE (NEGATIVE); NITRITE,URINE NEGATIVE (NEGATIVE); OCCULT BLOOD,URINE LARGE (NEGATIVE); PH,URINE 5.5 PH (5.0-7.5); PROTEIN,URINE 100 mg/dL (NEGATIVE); RBC,URINE TNTC /HPF (0-5); UROBILINOGEN,URINE 0.2 (NORMAL) E.U./dL (NORMAL)
[2024-04-19 15:35] LABS: AMORPHOUS SEDIMENT,UR Rare /LPF; BACTERIA,URINE None Seen /HPF (None Seen); CRYSTALS,URINE 0-2 Uric Acid /LPF; SQUAMOUS EPITHELIAL CELL,UR RARE Squamous (<= Few)
[2024-04-19 15:50] VITALS: BP 144/86; O2SAT 98
== END 2024-04-19 15:51 | disposition home or self-care (01) ==
LOC: ED 13:55
DX: K56.41 Fecal impaction (principal); N30.01 Acute cystitis with hematuria; G20.A1 Parkinson's disease without dyskinesia, without mention of fluctuations
CPT/HCPCS: 81001; 81003; 87086; 99282; 99283

== ENCOUNTER 2024-08-16 09:27 | Inpatient (IN) ==
[2024-08-16 10:21] LABS: BASOPHILS % (AUTO) 0.4 %; EOSINOPHILS # (AUTO) 0.1 10^3/uL (0.0-0.7); EOSINOPHILS % (AUTO) 0.6 %; HCT - HEMATOCRIT 44.8 % (42.0-52.0); HGB - HEMOGLOBIN 14.3 g/dL (14.0-18.0); LYMPHOCYTES # (AUTO) 0.6 10^3/uL (1.5-3.5); LYMPHOCYTES % (AUTO) 5.9 %; MEAN CORPUSCULAR HEMOGLOBIN 30.5 pg (27.0-31.0); MEAN CORPUSCULAR HGB CONC 31.9 g/dL (32.0-36.0); MEAN CORPUSCULAR VOLUME 95.5 fL (80.0-94.0); MONOCYTES # (AUTO) 0.7 10^3/uL (0.0-1.0); MONOCYTES % (AUTO) 6.5 %; NEUTROPHILS # (AUTO) 9.2 10^3/uL (1.5-6.6); NEUTROPHILS % (AUTO) 86.3 %; PLT - PLATELET COUNT 207 10^3/uL (130-450); RED BLOOD COUNT 4.69 10^6/uL (4.70-6.10); RED CELL DISTRIBUTION WIDTH 12.9 % (12.0-15.0); WHITE BLOOD COUNT 10.6 x10^3/uL (4.8-10.8)
[2024-08-16 10:35] LABS: ALBUMIN/GLOBULIN RATIO 1.5 (1.0-2.2); BILIRUBIN,TOTAL 0.7 mg/dL (0.2-1.0); CREATININE 4.1 mg/dL (0.6-1.3); POTASSIUM 5.2 mmol/L (3.5-4.5); TOTAL PROTEIN 6.7 g/dL (6.4-8.9)
--- NOTE | 2024-08-16 11:39 | ED Physician Documentation ---
History of Present Illness Stated complaint Stated Complaint: Chief complaint Chief Complaint: Abd Pain History obtained from History obtained from: Patient and Family History of Present Illness Pain level max: 0 Pain level now: 0 Additonal information Additional information: Patient is an 83-year-old male who presents to the emergency department stating that he has had very little urine output over the past 1 to 2 days. He states that he has a history of Parkinson's disease and drinks very little water throughout the day. He states that he is concerned that if he drinks water it will "go right through him" and cause a mess. No fevers. No chills. No cough or congestion. No history of kidney issues or bladder issues. Upon review of the chart, it does appear that the patient has remote history of bladder cancer in addition to the Parkinson's disease. Has had a TURP in the past as well. When I asked the patient if he had any history of any medical problems including high blood pressure, high cholesterol, cancer, etc. the patient stated no. Review of Systems Constitutional Denies: Fever or Chills Respiratory Denies: Cough Gastrointestinal Denies: Abdominal pain, Nausea or Vomiting Meds/Allgy Home Medications Ambulatory Orders Medication Instructions Recorded Confirmed acetaminophen 325 mg tablet 650 mg PO Q4H PRN pain (scale 08/16/24 08/16/24 score 1-3) Allergies Allergies Allergy/AdvReac Type Severity Reaction Status Date / Time sulfamethoxazole (From Allergy Nausea Verified 08/16/24 09:55 Bactrim) trimethoprim (From Bactrim) Allergy Nausea Verified 08/16/24 09:55 PFSH Social History Social History Smoking Status: Never smoker Second hand tobacco smoke exposure: No Do you dip or chew tobacco?: No Do you vape?: No Patient requests smoking cessation consult: No Initiate information on smoking cessation: No Living arrangement: At home Marital Status: Living Condition: With spouse/s.o. Relationship: Level: Independent Do you feel safe in your home environment?: No Suffered physical, verbal, emotional, or financial abuse?: No History of Abuse: No ETOH Use: None Substance Use: denies use Are you sexually active?: No POLST Patient has POLST: No Exam Constitutional Thin, elderly male HENMT normocephalic Dry lips and tongue Eyes PERRL Neck/C-Spine supple and no meningeal signs Respiratory breath sounds equal bilaterally and normal respiratory effort Cardiovascular normal heart rate noted and regular rhythm noted Gastrointestinal abdomen soft to palpation, nontender to palpation and nondistended Genitourinary no CVA tenderness Back/Pelvis no thoracic spine tenderness and no lumbar spine tenderness Extremities No edema Neurology pole framer II-XII intact and GCS 15 Psychiatry mental status grossly normal and oriented x3 Skin skin color normal and no rash Results Vitals Vitals: Vital Signs - 24 hr 08/16/24 09:51 08/16/24 11:55 08/16/24 13:00 Temperature 35.9 C L Temperature Source Temporal Artery Scan Pulse Rate 67 110 H 102 H Respiratory Rate 20 14 19 Blood Pressure 131/95 H 142/84 H 142/81 H O2 Saturation 99 98 98 O2 Source Room air Room air Room air Pain Intensity 0 0 0 Oxygen O2 Source Room air Labs Labs: Laboratory Tests 08/16/24 08/16/24 10:16 12:05 WBC 10.6 RBC 4.69 L Hgb 14.3 Hct 44.8 MCV 95.5 H MCH 30.5 MCHC 31.9 L RDW 12.9 Plt Count 207 MPV 9.0 Neut # (Auto) 9.2 H Lymph # (Auto) 0.6 L Taylor # (Auto) 0.7 Eos # (Auto) 0.1 Baso # (Auto) 0.0 Absolute Nucleated RBC 0.00 Nucleated RBC % 0.0 Sodium 137 Potassium 5.2 H Chloride 104 Carbon Dioxide 27 Anion Gap 6.0 BUN 68 H Creatinine 4.1 H Estimated GFR (MDRD) 14 L Glucose 110 H Calcium 9.0 Total Bilirubin 0.7 AST 13 ALT 8 L Alkaline Phosphatase 68 Total Protein 6.7 Albumin 4.0 Globulin 2.7 Albumin/Globulin Ratio 1.5 Lipase 18 Urine Color BROWN Urine Clarity CLOUDY Urine pH 8.0 H Ur Specific [place] 1.025 Urine Protein >=300 H Urine Glucose (UA) NEGATIVE Urine Ketones NEGATIVE Urine Occult Blood LARGE H Urine Nitrite POSITIVE H Urine Bilirubin SMALL H Urine Urobilinogen 0.2 (NORMAL) Ur Leukocyte Esterase SMALL H Urine RBC TNTC H Urine WBC 11-25 H Ur Squamous Epith Cells RARE Squamous Urine Bacteria Few Ur Microscopic Review INDICATED Urine Culture Comments INDICATED PD Medical Decision Making ED course Complexity details: reviewed results, re-evaluated patient, considered differential, d/w patient, d/w family and d/w aws consultant ED course: 83 year old male with acute kidney injury. Baseline creatinine is around 1.0, up to 4.1 today. Appears to be severely dehydrated given IV fluids. Bedside ultrasound reveals a completely empty bladder. A Shelley catheter was placed to monitor urine output. Discuss the case with the hospitalist who accepts. Patient will be placed in observation. This document was made in part using voice recognition software. While efforts are made to proofread this document, sound alike and grammatical errors may occur. Discharge Plan Discharge Patient Disposition: ED Place in Observation Condition: Stable Clinical Impression: Acute dehydration Acute kidney failure Qualifiers: Acute renal failure type: unspecified Qualified Code(s): N17.9 - Acute kidney failure, unspecified Interventions: ED Admission Assessment Last Done: 08/16/24 14:06
[2024-08-16] MEDS: SODIUM CHLORIDE 0.9% 1,000 ML IV STA ×2 (11:45)
[2024-08-16] MEDS: LIDOCAINE 2% URO-JET 5 ML SYRINGE UR STA (11:49)
[2024-08-16 12:23] LABS: BILIRUBIN,URINE SMALL (NEGATIVE); GLUCOSE, URINE (UA) NEGATIVE (NEGATIVE); KETONES,URINE (UA) NEGATIVE (NEGATIVE); LEUKOCYTE ESTERASE, URINE SMALL (NEGATIVE); NITRITE,URINE POSITIVE (NEGATIVE); OCCULT BLOOD,URINE LARGE (NEGATIVE); PROTEIN,URINE >=300 mg/dL (NEGATIVE); UROBILINOGEN,URINE 0.2 (NORMAL) E.U./dL (NORMAL)
[2024-08-16 12:35] LABS: CLARITY,URINE CLOUDY (CLEAR)
[2024-08-16 12:36] LABS: BACTERIA,URINE Few /HPF (None Seen); RBC,URINE TNTC /HPF (0-5); SQUAMOUS EPITHELIAL CELL,UR RARE Squamous (<= Few)
--- NOTE | 2024-08-16 12:40 | HISTORY & PHYSICAL EXAMINATION ---
Chief Complaint Chief Complaint Chief Complaint: Not making urine at home History of Present Illness History Obtained From Records Reviewed: Yes History obtained from: Patient, patient's Nubia, at bedside Exam Limitations: None History of Present Illness HPI Comment/Other: Patient is a 83-year-old male with a history of bladder cancer currently in remission since 2019, history of ureteral stones, Parkinson's disease who presents because he was not making any urine at home. Per patient and patient's at bedside, he has not made much urine in the last 2 days. He states that he tries to drink at least 3 small cups of water a day, but it is hard for him to get to the washroom in time, and he worries about urinating on himself. His states that it is probably even less water than this. He has had a few kidney stones in the past, and does not have pain like he did with those. He states the last time he had it, and it was seen on his CAT scan, it did pass. Patient and his states that he does eat regularly, and drinks Ensure regularly. His appetite has been decreased. For the past 2 days, he has felt unwell, although he cannot specify how. He just states that he does not feel like eating, and his appetite has been poor. He denies any fevers, chills, shortness of breath, cough, abdominal pain, blood in his urine. He also denies any dysuria, urinary frequency. He does not any urine incontinence, however due to his Parkinson's, he moves quite slowly, and is sometimes unable to make it to the restroom in time. In the emergency room, he was normotensive at 131/95, heart rate was 67, he was afebrile, saturating 99% on room air. Lab work showed elevated creatinine of 4.1 with a potassium of 5.2. His creatinine 08/12/2023 was 0.9. He was admitted for acute kidney injury. He was started on IV fluids. Meds/Allgy Home Medications Ambulatory Orders Medication Instructions Recorded Confirmed No Known Home Medications 08/16/24 08/16/24 Allergies Allergies Allergy/AdvReac Type Severity Reaction Status Date / Time sulfamethoxazole (From Allergy Nausea Verified 08/16/24 09:55 Bactrim) trimethoprim (From Bactrim) Allergy Nausea Verified 08/16/24 09:55 [facility] Social History Social History Smoking Status: Never smoker Do you vape?: No Living arrangement: At home Marital Status: Living Condition: With spouse/s.o. Relationship: Do you feel safe in your home environment?: Yes Suffered physical, verbal, emotional, or financial abuse?: No History of Abuse: No ETOH Use: None Substance Use: denies use Are you sexually active?: No POLST Patient has POLST: No POLST Status: Full Code (Will discuss further with each other prior to filling out POLST/deciding code status) Review of Systems Constitutional Reports: Fatigue, Malaise, Weakness, Changes in appetite or eating habits, Poor appetite and Weight loss; Denies: Fever, Chills, Diaphoresis or Night sweats Eyes Denies: Pain, Irritation, Blurry vision, Floaters, Field loss, Vision loss or Change in vision Ears, nose, mouth, and throat Denies: Ear pain, Ear discharge, Hearing loss, Change in hearing, Nasal pain, Nose bleeds, Nasal discharge, Neck pain or Throat swelling Cardiovascular Denies: Irregular heart rate, chest pain, palpitations, edema, swelling of feet/ankles, Syncope or shortness of breath with exertion Respiratory Denies: Shortness of breath, Cough, Sputum production or Change in phlegm color Gastrointestinal Reports: Poor appetite; Denies: Abdominal pain, Abdominal distention, Nausea, Vomiting, Coffee grounds in vomit, Heartburn, Diarrhea or Constipation Genitourinary Reports: Decreased urine ouput and Urinary dribbling; Denies: Painful urination, Flank pain, Incontinence, Urinary frequency, Urinary urgency, Nocturia, Blood in urine or Penile discharge Musculoskeletal Denies: Back pain, Neck pain, Extremity pain or Extremity swelling Integumentary/Breast Denies: Rash, Itching, Dryness, Redness, Skin pain or Skin tenderness Neurological Reports: General weakness; Denies: Headache, Focal weakness, Weakness in extremities, Numbness in extremities or Lack of coordination Psychiatric Reports: Memory loss; Denies: Depression, Anxiety, Mood swings or Panic attacks Endocrine Reports: Fatigue; Denies: Excessive urination, Excessive thirst or Polyphagia Hematologic/Lymphatic Denies: Anemia Allergic/Immunologic Denies: Hives or Throat swelling Prior Level of Functionality: Walks around the house, helps with some household tasks like throwing out garbage. Lives with who helps with other ADLs. Exam Constitutional abnormal general appearance (disheveled), (appears older than stated age) and (frail appearing), no apparent distress, abnormal body habitus (thin) and (underweight) and alert HENMT normocephalic and hearing grossly normal bilaterally Eyes PERRL and EOMs intact bilaterally Neck/C-Spine visual inspection normal and trachea midline Lymph no lymphedema noted Chest inspection of chest normal and palpation of chest normal Respiratory breath sounds equal bilaterally, normal respiratory effort, clear to auscultation bilaterally, no wheezes, no rales and no retractions Cardiovascular normal heart rate noted, regular rhythm noted and no murmur Gastrointestinal abdomen normal to inspection, abdomen soft to palpation, nontender to palpation, nontender to percussion, nondistended, normoactive bowel sounds and no hepatosplenomegaly Genitourinary no CVA tenderness and bladder normal to palpation Extremities normal to inspection, normal to palpation, no tenderness and full ROM Neurology no focal motor deficit noted Psychiatry oriented x3, thought process normal, cooperative and affect normal Skin no rash, no lesions and no ecchymosis noted Conclusion/Plan Problem List (1) Acute kidney failure: Plan: Patient presents with worsening kidney failure. Creatinine this morning of 4.1. Baseline creatinine of 0.9 in 07/2023. Potassium mildly elevated at 5.2. Shelley catheter placed by emergency room with 0 cc of urine output, bladder scan done with 0 cc of urine. Patient does appear severely dehydrated, this is consistent with history. Will order urine electrolytes, urine creatinine, although patient has received IV fluids, and this may discredit the results. Continue aggressive IV fluid rehydration. Will bolus with a liter of sodium chloride, and then continue 150 cc/h. We will recheck creatinine in the evening, and make sure it is heading in the right direction. Strict ins and outs. Renal ultrasound ordered, pending. Qualifiers: Acute renal failure type: unspecified Qualified Code(s): N17.9 - Acute kidney failure, unspecified (2) Acute dehydration: Plan: Continue aggressive IV fluid rehydration as stated above. (3) Bladder cancer: Plan: Patient has a history of bladder cancer, has been in remission since 2019. Has annual appointments with his oncologist. Qualifiers: Bladder location: unspecified site Qualified Code(s): C67.9 - Malignant neoplasm of bladder, unspecified (4) Parkinson disease: Plan: Patient has a history of Parkinson's disease, not currently on any medications for it. Ambulates at home. helps with ADLs. Qualifiers: Dyskinesia presence: unspecified whether dyskinesia Fluctuating manifestations: unspecified whether manifestations fluctuate Qualified Code(s): G20.A1 - Parkinson's disease without dyskinesia, without mention of fluctuations Lab Results Lab results reviewed: Yes 08/16/24 10:16 08/16/24 10:16 Diagnostic Imaging Results Diagnostic Imaging Results: positive Final report reviewed Core Measures Anticipated LOS I expect patient to be DC'd or transferred within 96 hours.: Yes DVT/VTE - Prophylaxis VTE/DVT Device ordered at admit?: Yes VTE/DVT Prophylaxis med ordered at admit?: Yes Stroke - Rehab Assessment Rehab services assessment to be ordered?: No Not Ordered - Medical Reason: Not indicated AMI - Statin at Admit Aspirin Prescribed on Admit: No Not Ordered - Medical Reason: Not indicated
[2024-08-16] MEDS ORDERED: LIDOCAINE 2% URO-JET 5 ML SYRINGE UR ONE ×2 (14:04→14:53)
[2024-08-16] MEDS ORDERED: iohexoL-240 10 ML VIAL IVP ONE (14:04)
[2024-08-16] MEDS: SODIUM CHLORIDE 0.9% 500 ML IV ONE (14:23)
--- NOTE | 2024-08-16 14:30 | PREOP HISTORY & PHYSICAL ---
Surgical History & Physical Chief Complaint/HPI Chief Complaint: dehydration History of Present Illness: Flaco is a pleasant 83-year-old male with significant Parkinson disease, he states he has a history of bladder cancer and has a cystoscopy every year by his urologist in [facility]. He said his left cystoscopy was 8 months ago and was negative. He has history of kidney stones and states he has watched these with his urologist. He comes today with acute dehydration and oliguria. He has history of TURP in the past as well An ultrasound of his kidney showed right hydronephrosis along with known kidney stones. No obvious obstructing stone was seen A Shelley catheter was placed and his bladder though his bladder was nondistended He is NPO Home Meds and Allergies Active Medications Generic Name Dose Route Start Last Admin Trade Name Freq PRN Reason Stop Dose Admin Heparin Sodium (Porcine) 5,000 unit 08/16/24 21:00 Heparin 5,000 Unit/Ml Vial SUBQ BID NAVIN Sodium Chloride 1,000 mls @ 150 mls/hr 08/16/24 11:32 08/16/24 11:45 Normal Saline 0.9% IV 08/16/24 18:11 150 mls/hr .Q6H40M STA Administration Sodium Chloride 1,000 mls @ 150 mls/hr 08/16/24 13:49 Normal Saline 0.9% IV .Q6H40M NAVIN Sodium Chloride 10 ml 08/16/24 13:49 Sodium Chloride Flush 0.9% 10 Ml Syringe IVP PRN PRN NEEDED PER PROVIDER ORDERS Sodium Chloride 10 ml 08/16/24 17:00 Sodium Chloride Flush 0.9% 10 Ml Syringe IVP 0100,0900,1700 NAVIN No Known Home Medications 08/16/24 Allergies Allergy/AdvReac Type Severity Reaction Status Date / Time sulfamethoxazole (From Allergy Nausea Verified 08/16/24 09:55 Bactrim) trimethoprim (From Bactrim) Allergy Nausea Verified 08/16/24 09:55 Vital Signs O2 Saturation: 97 Patient Review Patient Review Pertinent Tests Reviewed [facility] Social History Social History Smoking Status: Never smoker Do you vape?: No Living arrangement: At home Marital Status: Living Condition: With spouse/s.o. Relationship: Do you feel safe in your home environment?: Yes Suffered physical, verbal, emotional, or financial abuse?: No History of Abuse: No ETOH Use: None Substance Use: denies use Are you sexually active?: No POLST Patient has POLST: No POLST Status: Full Code (Will discuss further with each other prior to filling out POLST/deciding code status) Exam Exam cachectic NAD RRR CTA b/l Assessment & Plan Assessment & Plan Assessment & Plan: 83-year-old male with Parkinson disease, history of TURP, history of bladder cancer now with an ISA with creatinine 4.1 from baseline 0.9. Consistent with dehydration. Renal ultrasound with right sided hydronephrosis posteriorly to known kidney stones versus history of bladder cancer causing obstruction I discussed with the patient my concern about his significant renal dysfunction. I strongly recommend a cystoscopy, right ureteral stent placement and retrograde pyelogram. The risk, benefits, terms were discussed with the patient. Specific risks of infection, bleeding, injury to adjacent structures, need for additional procedures, failure of therapy were discussed. The patient states understanding and consents the above plan. He has been marked and consented
--- NOTE | 2024-08-16 14:42 | Ultrasound Report ---
PROCEDURE: US Renal (Retroperitoneal) INDICATIONS: ISA, hx of bladder cancer, hx of ureteral stones TECHNIQUE: Real-time scanning was performed of the retroperitoneal organs, with image documentation. 57 images. COMPARISON: No prior ultrasound for comparison. Comparison can be made to prior CT abdomen/pelvis De [id number] FINDINGS: Compared to the prior CT there is new moderate to severe right hydronephrosis and proximal hydrourete r suggest pattern of obstruction. Follow-up is needed. CT abdomen/pelvis may be useful for further ev aluation. Similar to the prior exam there is a large nonobstructing right renal calculus right middle calyx hanane suring approximately 1.9 x 1.2 x 1.2 cm. Mild diffuse increased renal cortical echogenicity bilaterally is nonspecific commonly medical renal disease. Right renal cyst 4.0 x 3.4 x 2.9 cm. Several nonobstructing left renal calculi: 1.9 x 1.7 x 1.6 cm and 1.3 x 0.8 x 0.7 cm. No ultrasound e vidence of left hydronephrosis. Kidneys: Kidneys are normal in size. Right kidney measures 9.6 cm long; left kidney measures 11.4 c m long. Right renal cortical thickness is 0.9 cm; left renal cortical thickness is 1.0 cm. No solid masses, hydronephrosis, or nephrolithiasis. Bladder: Prostate and bladder are not visualized, per notes IMPRESSION: Moderate to severe right hydronephrosis and proximal hydroureter as discussed above. Follow-up is nee ded Nonobstructing right renal calculus similar to prior CT. Mild diffuse increased renal cortical echogenicity bilaterally is nonspecific commonly medical renal disease. Agree with preliminary interpretation provided to the ordering provider by the ultrasound technologis t. Reviewed by: Aubrey Villalobos MD on 08/16/2024 2:41 PM PST Approved by: Aubrey Villalobos MD on 08/16/2024 2:41 PM PST Station ID: [id number]
[2024-08-16] MEDS: ceFAZolin 1 GM in SODIUM CHLORIDE 0.9% MINIBAG 100 ML IV ONE (15:04)
[2024-08-16] MEDS ORDERED: LIDOCAINE-PF 2% 10 ML AMP SUBQ ONE (15:48)
[2024-08-16] MEDS ORDERED: PROPOFOL 200 MG/20 ML VIAL IVP ONE (15:48)
[2024-08-16] MEDS ORDERED: fentaNYL 100 MCG/2 ML VIAL ONE (15:48)
--- NOTE | 2024-08-16 16:14 | PHARMACY PROGRESS NOTE ---
Best Possible Medication History Admit Date and Time: 08/16/24 [id number] Home Medications Medication Instructions Recorded Confirmed Type acetaminophen 325 mg tablet 650 mg PO Q4H PRN pain (scale 08/16/24 08/16/24 History score 1-3) Processed by: Pharmacy Medications reviewed in ED?: Yes Medication History completed: Yes Patient Interview: Completed Secondary Source(s): Spouse/Significant other [facility] Statement: As the person ultimately responsible for medication therapy, providers are able to order a medication from an existing home medication list in [facility] via the "Reconcile Routine" prior to Confirmation of that medication by technical support assistant. Such practice is discouraged except when the physician, in their clinical judgment, deems that a medical need exists for a medication without regard to previous use.
--- NOTE | 2024-08-16 16:43 | OPERATIVE REPORT ---
Operative Report General Admit Date: 08/16/24 Procedure Data: Operation Date: 08/16/24 16:00 Proposed Procedures p Cystoscopy With Ureteral Stent Placement(Right) - Yogi Lea MD Actual Procedures p Cystoscopy With Ureteral Stent Placement(Right) - Yogi Lea MD Pre-Op Diagnosis: ISA, DECREASED URINE OUTPUT Anesthesia Type General Case Staff Anesthesia Provider: Marilyn Vilchis Case Times Procedure Start: 08/16/24 16:10 Time out: 08/16/24 16:08 Implants STENT URETERAL [id number] Pre-Op Diagnosis: Right ureteral obstruction, ISA Post Op Diagnosis: Right ureteral obstruction, infection Procedure Note Pathology: right kidney urine Findings: Severe hydroureteronephrosis to the level of the bladder on right Complications: none Other Other Information/Narrative: After informed sent was obtained patient brought to the OR and laid in the supine position. The patient was anesthetized per anesthesia protocols and prepped draped in usual sterile fashion in the dorsolithotomy position. A formal timeout was performed reconfirmed the patient, procedure and laterality A 22 Thai cystoscope was advanced easily into urinary bladder. He had a wide open prostate channel from a prior TURP. His bladder was enlarged but had no mucosal abnormalities. We had some difficulty identifying the right ureteral orifice and the trigone but once this was identified we placed a sensor wire into it. There was immediate resistance. We then placed a 5 Thai open ended ureteral catheter at the UVJ and a gentle retrograde pyelogram showed a massively dilated distal ureter versus possible perforation. We used an angled Glidewire to gain access into the ureter and advanced the 5 Thai open-ended ureteral catheter. After removing the wire we saw immediate hydronephrotic drip of purulent cloudy urine. A specimen was sent for culture. We then advanced the angled Glidewire up into the kidney and the 5 Thai open-ended catheter over it. We then performed a gentle retrograde pyelogram which confirmed placement and a massively dilated right renal system. The sensor wire was placed through the catheter and then a 6 Thai 28 cm stent was placed with good curling noted in the kidney and good curling noted in the bladder. The bladder was emptied and a 16 Thai Shelley catheter was placed. This include the procedure and the patient tolerated the procedure well. He was brought to PACU without further incident. He will turn to the medical service. I recommend monitoring for postoperative diuresis for now. I recommend empiric antibiotics. Given the patient's functional status I recommend leaving the catheter in place for now but likely remove before discharge
[2024-08-16] MEDS ORDERED: NALOXONE 0.4 MG/ML VIAL IVP PRN (16:53)
[2024-08-16] MEDS ORDERED: HYDROmorphone 0.5 MG/0.5 ML SYRINGE IVP PRN (16:53)
[2024-08-16] MEDS ORDERED: ATROPINE ABBOJECT 1 MG/10 ML SYRINGE IVP PRN (16:53)
[2024-08-16] MEDS ORDERED: MORPHINE 2 MG/ML CARPUJECT IVP PRN ×2 (16:53→17:46)
[2024-08-16] MEDS ORDERED: ePHEDrine 50 MG/ML VIAL IVP PRN (16:53)
[2024-08-16] MEDS ORDERED: ONDANSETRON 4 MG/2 ML VIAL IVP PRN (16:53)
[2024-08-16] MEDS ORDERED: fentaNYL 100 MCG/2 ML VIAL IVP PRN (16:53)
--- NOTE | 2024-08-16 17:05 | ANESTHESIA PROCEDURE NOTE ---
Pre-Anesthesia VS, & Labs Diagnosis Surgical Diagnosis:: kidney dysfunction, R hydronephrosis Procedure Procedure: cystoscopy, r ureteral stent, pyleogram Vitals Vital Signs: Temp Pulse Resp BP Pulse Ox 36.7 C 68 12 120/67 100 08/16/24 16:56 08/16/24 16:56 08/16/24 16:56 08/16/24 16:56 08/16/24 16:56 NPO NPO: >8 hours Lab Results Current Lab Results: Laboratory Tests 08/16/24 14:52: POC Whole Bld Glucose 87 08/16/24 10:16: WBC 10.6, RBC 4.69 L, Hgb 14.3, Hct 44.8, MCV 95.5 H, MCH 30.5, MCHC 31.9 L, RDW 12.9, Plt Count 207, MPV 9.0, Neut # (Auto) 9.2 H, Lymph # (Auto) 0.6 L, [place] # (Auto) 0.7, Eos # (Auto) 0.1, Baso # (Auto) 0.0, Absolute Nucleated RBC 0.00, Nucleated RBC % 0.0, Sodium 137, Potassium 5.2 H, Chloride 104, Carbon Dioxide 27, Anion Gap 6.0, BUN 68 H, Creatinine 4.1 H, Estimated GFR (MDRD) 14 L, Glucose 110 H, Calcium 9.0, Total Bilirubin 0.7, AST 13, ALT 8 L, Alkaline Phosphatase 68, Total Protein 6.7, Albumin 4.0, Globulin 2.7, Albumin/Globulin Ratio 1.5, Lipase 18 Lab results reviewed: Yes 08/16/24 10:16 08/16/24 10:16 Meds/Allgy Home Medications Ambulatory Orders Medication Instructions Recorded Confirmed acetaminophen 325 mg tablet 650 mg PO Q4H PRN pain (scale 08/16/24 08/16/24 score 1-3) Allergies Allergies Allergy/AdvReac Type Severity Reaction Status Date / Time sulfamethoxazole (From Allergy Nausea Verified 08/16/24 09:55 Bactrim) trimethoprim (From Bactrim) Allergy Nausea Verified 08/16/24 09:55 PFSH Social History Social History Smoking Status: Never smoker Second hand tobacco smoke exposure: No Do you dip or chew tobacco?: No Do you vape?: No Patient requests smoking cessation consult: No Initiate information on smoking cessation: No Living arrangement: At home Marital Status: Living Condition: With spouse/s.o. Relationship: Level: Independent Do you feel safe in your home environment?: No Suffered physical, verbal, emotional, or financial abuse?: No History of Abuse: No ETOH Use: None Substance Use: denies use Are you sexually active?: No POLST Patient has POLST: No POLST Status: Full Code (Will discuss further with each other prior to filling out POLST/deciding code status) Anesthesia Exam (Expanded) Exam General: Alert, Oriented x3 and Cooperative Dental: Poor dentition Mouth Openin Fingerbreadth Neck Mobility: Normal Mallampati classification: II Thyromental Distance: 4-6 cm Respiratory: Other (pt reports cough, claims nonproductive but also reports he's "too weak to cough it up") Cardiovascular: Regular rate Plan Problem List (1) Acute kidney failure: Plan: Patient presents with worsening kidney failure. Creatinine this morning of 4.1. Baseline creatinine of 0.9 in 07/2023. Potassium mildly elevated at 5.2. Shelley catheter placed by emergency room with 0 cc of urine output, bladder scan done with 0 cc of urine. Patient does appear severely dehydrated, this is consistent with history. Will order urine electrolytes, urine creatinine, although patient has received IV fluids, and this may discredit the results. Continue aggressive IV fluid rehydration. Will bolus with a liter of sodium chloride, and then continue 150 cc/h. We will recheck creatinine in the evening, and make sure it is heading in the right direction. Strict ins and outs. Renal ultrasound ordered, pending. Qualifiers: Acute renal failure type: unspecified Qualified Code(s): N17.9 - Acute kidney failure, unspecified (2) Acute dehydration: Plan: Continue aggressive IV fluid rehydration as stated above. (3) Bladder cancer: Plan: Patient has a history of bladder cancer, has been in remission since 2019. Has annual appointments with his oncologist. Qualifiers: Bladder location: unspecified site Qualified Code(s): C67.9 - Malignant neoplasm of bladder, unspecified (4) Parkinson disease: Plan: Patient has a history of Parkinson's disease, not currently on any medications for it. Ambulates at home. helps with ADLs. Qualifiers: Dyskinesia presence: unspecified whether dyskinesia Fluctuating manifestations: unspecified whether manifestations fluctuate Qualified Code(s): G20.A1 - Parkinson's disease without dyskinesia, without mention of fluctuations (5) Pulmonary nodule, left: (6) History of transurethral resection of prostate: Plan Anesthesia Type: General Consent for Procedure(s) Verified and Reviewed: Yes Code Status: Attempt Resuscitation ASA Classification ASA classification: 3-Severe systemic disease Is this case an emergency?: Yes
--- NOTE | 2024-08-16 17:16 | ANESTHESIA POST OP EVALUATION ---
Anesthesia Post Eval Post Anesthesia Eval Vitals: Last Vital Signs Temp 36.8 C 08/16/24 17:05 Pulse 70 08/16/24 17:05 Resp 12 08/16/24 17:05 BP 121/75 08/16/24 17:05 Pulse Ox 100 08/16/24 17:05 CV Function Including HR & BP: Stable Pain Control: Satisfactory Nausea & Vomiting: Negative Mental Status: Baseline Respiratory Status: Airway Patent Hydration Status: Satisfactory Anesthesia Complications: None
[2024-08-16] MEDS: SODIUM CHLORIDE 0.9% 1,000 ML IV SCH (17:41)
[2024-08-16] MEDS: LACTATED RINGERS 1,000 ML IV SCH (17:42)
[2024-08-16] MEDS: SODIUM CHLORIDE FLUSH 0.9% 10 ML SYRINGE IVP SCH (17:42)
[2024-08-16] MEDS ORDERED: HYDROcod/ACETAM 5/325 MG TABLET PO PRN (17:46)
[2024-08-16] MEDS ORDERED: ACETAMINOPHEN 325 MG TABLET PO PRN (17:46)
[2024-08-16 19:55] LABS: CALCIUM 8.2 mg/dL (8.5-10.3); CREATININE 4.3 mg/dL (0.6-1.3); POTASSIUM 5.4 mmol/L (3.5-4.5)
[2024-08-16] MEDS: PHENOL THROAT SPRAY 177 ML MM PRN (20:50)
[2024-08-16] MEDS ORDERED: HEPARIN 5,000 UNIT/ML VIAL SUBQ SCH (21:00)
[2024-08-17] MEDS: METOPROLOL 5 MG/5 ML VIAL IVP ONE (05:31)
[2024-08-17 06:14] LABS: HCT - HEMATOCRIT 40.2 % (42.0-52.0); HGB - HEMOGLOBIN 12.8 g/dL (14.0-18.0); MEAN CORPUSCULAR HEMOGLOBIN 30.7 pg (27.0-31.0); MEAN CORPUSCULAR HGB CONC 31.8 g/dL (32.0-36.0); MEAN CORPUSCULAR VOLUME 96.4 fL (80.0-94.0); MEAN PLATELET VOLUME 10.4 fL (7.4-11.4); RED BLOOD COUNT 4.17 10^6/uL (4.70-6.10); RED CELL DISTRIBUTION WIDTH 12.7 % (12.0-15.0); WHITE BLOOD COUNT 10.3 x10^3/uL (4.8-10.8)
[2024-08-17 06:28] LABS: POTASSIUM 5.1 mmol/L (3.5-4.5)
--- NOTE | 2024-08-17 08:23 | PROVIDER PROGRESS NOTE ---
Subjective Prog Note Date Prog Note Date: 08/17/24 Prog Note Time: 08:20 Subjective Subjective: demetrius is a 83-year-old male with a history of bladder cancer currently in remission since 2019, history of ureteral stones, Parkinson's disease who presents because he was not making any urine at home. Per patient and patient's at bedside, he has not made much urine in the last 2 days. He states that he tries to drink at least 3 small cups of water a day, but it is hard for him to get to the washroom in time, and he worries about urinating on himself. His states that it is probably even less water than this. He has had a few kidney stones in the past, and does not have pain like he did with those. He states the last time he had it, and it was seen on his CAT scan, it did pass. Patient and his states that he does eat regularly, and drinks Ensure regularly. His appetite has been decreased. For the past 2 days, he has felt unwell, although he cannot specify how. He just states that he does not feel like eating, and his appetite has been poor. He denies any fevers, chills, shortness of breath, cough, abdominal pain, blood in his urine. He also denies any dysuria, urinary frequency. He does not any urine incontinence, however due to his Parkinson's, he moves quite slowly, and is sometimes unable to make it to the restroom in time. In the emergency room, he was normotensive at 131/95, heart rate was 67, he was afebrile, saturating 99% on room air. Lab work showed elevated creatinine of 4.1 with a potassium of 5.2. His creatinine 08/12/2023 was 0.9. He was admitted for acute kidney injury. He was started on IV fluids. 08/17/2024: Patient is status post day 1 cystoscopy with ureteral stent placement. Patient feels he is doing well, has no complaints. Patient agrees to hemodialysis if needed. Current Medications Current Medications Current Medications: Current Medications Generic Name Dose Route Start Last Admin Trade Name Freq PRN Reason Stop Dose Admin Acetaminophen 650 mg 08/16/24 17:46 Acetaminophen 325 Mg Tablet PO Q4HR PRN Pain 1 to 4, or Fever Hydrocodone Bitart/Acetaminophen 1 tab 08/16/24 17:46 Hydrocod/Acetam 5/325 Mg Tablet PO Q4HR PRN Pain 5 to 7 Ceftriaxone Sodium 1 gm 08/17/24 09:00 Ceftriaxone 1 Gm Vial IVP DAILY [facility] Heparin Sodium (Porcine) 5,000 unit 08/16/24 21:00 Heparin 5,000 Unit/Ml Vial SUBQ BID [facility] Sodium Chloride 1,000 mls @ 150 mls/hr 08/16/24 13:49 08/17/24 04:32 Normal Saline 0.9% IV 150 mls/hr .Q6H40M NAVIN Administration Morphine Sulfate 2 mg 08/16/24 17:46 Morphine 2 Mg/Ml Carpuject IVP Q6HR PRN Pain 8 to 10 Phenol/Menthol 1 - 2 sprays 08/16/24 20:34 08/16/24 20:50 Phenol Throat [place] 177 Ml MM 2 sprays Q6HR PRN Administration Mouth Sore Pain Sodium Chloride 10 ml 08/16/24 13:49 Sodium Chloride Flush 0.9% 10 Ml Syringe IVP PRN PRN NEEDED PER PROVIDER ORDERS Sodium Chloride 10 ml 08/16/24 17:00 08/17/24 01:40 Sodium Chloride Flush 0.9% 10 Ml Syringe IVP Not Given 0100,0900,1700 [facility] Objective Vital Signs/Intake & Output Reviewed Vital Signs: Yes Vital Signs: Vital Signs x48h Temp Pulse Pulse Resp BP BP Pulse Ox 08/17/24 06:58 76 143/81 H 08/17/24 06:26 64 132/71 H 08/17/24 06:11 63 133/67 H 08/17/24 05:54 63 133/64 H 08/17/24 05:49 68 134/63 H 08/17/24 05:42 102 H 131/72 H 08/17/24 05:31 118 H 132/82 H 08/17/24 04:00 36.4 C L 124 H 14 147/92 H 97 Intake & Output: Intake & Output 08/14/24 08/15/24 08/16/24 08/17/24 23:59 23:59 23:59 23:59 Intake Total 2900 / 2900 1430 / 1430 Output Total 100 / 100 Balance 2800 / 2800 1430 / 1430 Weight (kg) 61.235 kg Objective General Appearance: positive No acute distress and Alert Eyes Bilateral: positive Normal inspection and PERRL ENT: positive ENT inspection nml and Pharynx nml Neck: positive Nml inspection and Trachea midline Respiratory: positive Chest non-tender and No respiratory distress Cardiovascular: positive Regular rate & rhythm and No murmur Abdomen: positive Non-tender and No distention Skin: positive Color nml and No rash Extremities: positive Non-tender and Full ROM Neurologic/Psychiatric: positive Oriented x3 and CN's nml (2-12) Lab Results 08/17/24 05:47 08/17/24 13:18 Other Labs: Lab Results x24hrs 08/17/24 08/16/24 08/16/24 Range/Units 05:47 19:30 14:52 WBC 10.3 (4.8-10.8) x10^3/uL RBC 4.17 L (4.70-6.10) 10^6/uL Hgb 12.8 L (14.0-18.0) g/dL Hct 40.2 L (42.0-52.0) % MCV 96.4 H (80.0-94.0) fL MCH 30.7 (27.0-31.0) pg MCHC 31.8 L (32.0-36.0) g/dL RDW 12.7 (12.0-15.0) % Plt Count 156 (130-450) 10^3/uL MPV 10.4 (7.4-11.4) fL Neut # (Auto) (1.5-6.6) 10^3/uL Lymph # (Auto) (1.5-3.5) 10^3/uL [place] # (Auto) (0.0-1.0) 10^3/uL Eos # (Auto) (0.0-0.7) 10^3/uL Baso # (Auto) (0.0-0.1) 10^3/uL Absolute Nucleated RBC x10^3/uL Nucleated RBC % /100WBC Sodium 138 140 (135-145) mmol/L Potassium 5.1 H 5.4 H (3.5-4.5) mmol/L Chloride 107 106 (101-111) mmol/L Carbon Dioxide 17 L 22 (21-32) mmol/L Anion Gap 14.0 H 12.0 (6-13) BUN 78 H 71 H (6-20) mg/dL Creatinine 5.0 H 4.3 H (0.6-1.3) mg/dL Estimated GFR (MDRD) 11 L 13 L (>89) Glucose 86 87 (74-104) mg/dL POC Whole Bld Glucose 87 (70-100) mg/dL Calcium 8.0 L 8.2 L (8.5-10.3) mg/dL Total Bilirubin (0.2-1.0) mg/dL AST (10-42) IU/L ALT (10-60) IU/L Alkaline Phosphatase (42-121) IU/L Total Protein (6.4-8.9) g/dL Albumin (3.2-5.5) g/dL Globulin (2.1-4.2) g/dL Albumin/Globulin Ratio (1.0-2.2) Lipase (11-82) U/L Urine Color Urine Clarity (CLEAR) Urine pH (5.0-7.5) PH Ur Specific [place] (1.002-1.030) Urine Protein (NEGATIVE) mg/dL Urine Glucose (UA) (NEGATIVE) mg/dL Urine Ketones (NEGATIVE) mg/dL Urine Occult Blood (NEGATIVE) Urine Nitrite (NEGATIVE) Urine Bilirubin (NEGATIVE) Urine Urobilinogen (NORMAL) E.U./dL Ur Leukocyte Esterase (NEGATIVE) Urine RBC (0-5) /HPF Urine WBC (0-3) /HPF Ur Squamous Epith Cells (<= Few) Urine Bacteria (None Seen) /HPF Ur Microscopic Review Urine Culture Comments 08/16/24 08/16/24 Range/Units 12:05 10:16 WBC 10.6 (4.8-10.8) x10^3/uL RBC 4.69 L (4.70-6.10) 10^6/uL Hgb 14.3 (14.0-18.0) g/dL Hct 44.8 (42.0-52.0) % MCV 95.5 H (80.0-94.0) fL MCH 30.5 (27.0-31.0) pg MCHC 31.9 L (32.0-36.0) g/dL RDW 12.9 (12.0-15.0) % Plt Count 207 (130-450) 10^3/uL MPV 9.0 (7.4-11.4) fL Neut # (Auto) 9.2 H (1.5-6.6) 10^3/uL Lymph # (Auto) 0.6 L (1.5-3.5) 10^3/uL [place] # (Auto) 0.7 (0.0-1.0) 10^3/uL Eos # (Auto) 0.1 (0.0-0.7) 10^3/uL Baso # (Auto) 0.0 (0.0-0.1) 10^3/uL Absolute Nucleated RBC 0.00 x10^3/uL Nucleated RBC % 0.0 /100WBC Sodium 137 (135-145) mmol/L Potassium 5.2 H (3.5-4.5) mmol/L Chloride 104 (101-111) mmol/L Carbon Dioxide 27 (21-32) mmol/L Anion Gap 6.0 (6-13) BUN 68 H (6-20) mg/dL Creatinine 4.1 H (0.6-1.3) mg/dL Estimated GFR (MDRD) 14 L (>89) Glucose 110 H (74-104) mg/dL POC Whole Bld Glucose (70-100) mg/dL Calcium 9.0 (8.5-10.3) mg/dL Total Bilirubin 0.7 (0.2-1.0) mg/dL AST 13 (10-42) IU/L ALT 8 L (10-60) IU/L Alkaline Phosphatase 68 (42-121) IU/L Total Protein 6.7 (6.4-8.9) g/dL Albumin 4.0 (3.2-5.5) g/dL Globulin 2.7 (2.1-4.2) g/dL Albumin/Globulin Ratio 1.5 (1.0-2.2) Lipase 18 (11-82) U/L Urine Color BROWN Urine Clarity CLOUDY (CLEAR) Urine pH 8.0 H (5.0-7.5) PH Ur Specific [place] 1.025 (1.002-1.030) Urine Protein >=300 H (NEGATIVE) mg/dL Urine Glucose (UA) NEGATIVE (NEGATIVE) mg/dL Urine Ketones NEGATIVE (NEGATIVE) mg/dL Urine Occult Blood LARGE H (NEGATIVE) Urine Nitrite POSITIVE H (NEGATIVE) Urine Bilirubin SMALL H (NEGATIVE) Urine Urobilinogen 0.2 (NORMAL) (NORMAL) E.U./dL Ur Leukocyte Esterase SMALL H (NEGATIVE) Urine RBC TNTC H (0-5) /HPF Urine WBC 11-25 H (0-3) /HPF Ur Squamous Epith Cells RARE Squamous (<= Few) Urine Bacteria Few (None Seen) /HPF Ur Microscopic Review INDICATED Urine Culture Comments INDICATED Diagnostic Imaging Diagnostic Imaging Results: positive Final report reviewed Assessment/Plan Problem List (1) Acute kidney failure: Impression: Status post day 1 cystoscopy with ureteral stent placement. Past felt fluid was drained after stent placement. Continue Rocephin for empirical ABX. Follow culture Minimal Bloody urine output. Patient is oliguric with urine output of less than 20/h. Shelley catheter present. Bladder scan negative for residual urine in the bladder. Creatinine has increased from 4.6-5.0, patient still hyperkalemic - Monitor potassium. Patient is high risk for needing HD. Touched base with urology who is okay with transfer if needed. Per Urology urterter obstruction maybe due to cancerous mass vs a stone, which is more unlikley . Qualifiers: Acute renal failure type: unspecified Qualified Code(s): N17.9 - Acute kidney failure, unspecified (2) Acute dehydration: Impression: Continue IV hydration, monitor urine output (3) Bladder cancer: Impression: Patient is followed by an outpatient oncologist, patient has been in remission since 2019 Qualifiers: Bladder location: unspecified site Qualified Code(s): C67.9 - Malignant neoplasm of bladder, unspecified (4) Parkinson disease: Impression: Chronic, not on outpatient medication. Patient's helps with ADLs. Qualifiers: Dyskinesia presence: unspecified whether dyskinesia Fluctuating manifestations: unspecified whether manifestations fluctuate Qualified Code(s): G20.A1 - Parkinson's disease without dyskinesia, without mention of fluctuations (5) Atrial fibrillation: Impression: Patient episode of atrial fibrillation during the daytime and during the nighttime. Spontaneous resolved. It was likely secondary to his current health status. Continue to monitor on Telemetry. (6) Hyperkalemia: Impression: trend potassium initiate hyperK tx (Cagluconate, D50/10U insulin, 1 amp bicarb, lokema) (7) Hypoxic respiratory failure: Impression: likley due to aggressive fluid resuscitation in the bgk of renal failure start pt on lasix bid
[2024-08-17] MEDS: cefTRIAXone 1 GM VIAL IVP SCH (08:51)
[2024-08-17] MEDS: SODIUM CHLORIDE FLUSH 0.9% 10 ML SYRINGE IVP PRN (08:52)
--- NOTE | 2024-08-17 09:54 | PROVIDER PROGRESS NOTE ---
Subjective Prog Note Date Prog Note Date: 08/17/24 Prog Note Time: 09:50 Subjective Pt reports feeling: No change Subjective: No subjective changes Current Medications Current Medications Current Medications: Current Medications Generic Name Dose Route Start Last Admin Trade Name Freq PRN Reason Stop Dose Admin Acetaminophen 650 mg 08/16/24 17:46 Acetaminophen 325 Mg Tablet PO Q4HR PRN Pain 1 to 4, or Fever Hydrocodone Bitart/Acetaminophen 1 tab 08/16/24 17:46 Hydrocod/Acetam 5/325 Mg Tablet PO Q4HR PRN Pain 5 to 7 Ceftriaxone Sodium 1 gm 08/17/24 09:00 08/17/24 08:51 Ceftriaxone 1 Gm Vial IVP 1 gm DAILY NAVIN Administration Heparin Sodium (Porcine) 5,000 unit 08/16/24 21:00 Heparin 5,000 Unit/Ml Vial SUBQ BID NAVIN Sodium Chloride 1,000 mls @ 150 mls/hr 08/16/24 13:49 08/17/24 04:32 Normal Saline 0.9% IV 150 mls/hr .Q6H40M NAVIN Administration Morphine Sulfate 2 mg 08/16/24 17:46 Morphine 2 Mg/Ml Carpuject IVP Q6HR PRN Pain 8 to 10 Phenol/Menthol 1 - 2 sprays 08/16/24 20:34 08/16/24 20:50 Phenol Throat [place] 177 Ml MM 2 sprays Q6HR PRN Administration Mouth Sore Pain Sodium Chloride 10 ml 08/16/24 13:49 Sodium Chloride Flush 0.9% 10 Ml Syringe IVP PRN PRN NEEDED PER PROVIDER ORDERS Sodium Chloride 10 ml 08/16/24 17:00 08/17/24 08:58 Sodium Chloride Flush 0.9% 10 Ml Syringe IVP 10 ml 0100,0900,1700 NAVIN Administration Objective Vital Signs/Intake & Output Reviewed Vital Signs: Yes Vital Signs: Vital Signs x48h Temp Pulse Pulse Resp BP BP Pulse Ox 08/17/24 08:00 36.7 C 72 12 147/80 H 95 08/17/24 06:58 76 143/81 H 08/17/24 06:26 64 132/71 H 08/17/24 06:11 63 133/67 H 08/17/24 05:54 63 133/64 H 08/17/24 05:49 68 134/63 H 08/17/24 05:42 102 H 131/72 H 08/17/24 05:31 118 H 132/82 H 08/17/24 04:00 36.4 C L 124 H 14 147/92 H 97 Intake & Output: Intake & Output 08/14/24 08/15/24 08/16/24 08/17/24 23:59 23:59 23:59 23:59 Intake Total 2900 / 2900 1630 / 1630 Output Total 100 / 100 Balance 2800 / 2800 1630 / 1630 Weight (kg) 61.235 kg Objective General Appearance: positive No acute distress (elderly, frail, severely cachectic, paul in place with small amount of urine. 100cc overnight output. Cr worsening, K 5.1) Lab Results 08/17/24 05:47 08/17/24 05:47 Other Labs: Lab Results x24hrs 08/17/24 08/16/24 08/16/24 Range/Units 05:47 19:30 14:52 WBC 10.3 (4.8-10.8) x10^3/uL RBC 4.17 L (4.70-6.10) 10^6/uL Hgb 12.8 L (14.0-18.0) g/dL Hct 40.2 L (42.0-52.0) % MCV 96.4 H (80.0-94.0) fL MCH 30.7 (27.0-31.0) pg MCHC 31.8 L (32.0-36.0) g/dL RDW 12.7 (12.0-15.0) % Plt Count 156 (130-450) 10^3/uL MPV 10.4 (7.4-11.4) fL Neut # (Auto) (1.5-6.6) 10^3/uL Lymph # (Auto) (1.5-3.5) 10^3/uL [place] # (Auto) (0.0-1.0) 10^3/uL Eos # (Auto) (0.0-0.7) 10^3/uL Baso # (Auto) (0.0-0.1) 10^3/uL Absolute Nucleated RBC x10^3/uL Nucleated RBC % /100WBC Sodium 138 140 (135-145) mmol/L Potassium 5.1 H 5.4 H (3.5-4.5) mmol/L Chloride 107 106 (101-111) mmol/L Carbon Dioxide 17 L 22 (21-32) mmol/L Anion Gap 14.0 H 12.0 (6-13) BUN 78 H 71 H (6-20) mg/dL Creatinine 5.0 H 4.3 H (0.6-1.3) mg/dL Estimated GFR (MDRD) 11 L 13 L (>89) Glucose 86 87 (74-104) mg/dL POC Whole Bld Glucose 87 (70-100) mg/dL Calcium 8.0 L 8.2 L (8.5-10.3) mg/dL Total Bilirubin (0.2-1.0) mg/dL AST (10-42) IU/L ALT (10-60) IU/L Alkaline Phosphatase (42-121) IU/L Total Protein (6.4-8.9) g/dL Albumin (3.2-5.5) g/dL Globulin (2.1-4.2) g/dL Albumin/Globulin Ratio (1.0-2.2) Lipase (11-82) U/L Urine Color Urine Clarity (CLEAR) Urine pH (5.0-7.5) PH Ur Specific [place] (1.002-1.030) Urine Protein (NEGATIVE) mg/dL Urine Glucose (UA) (NEGATIVE) mg/dL Urine Ketones (NEGATIVE) mg/dL Urine Occult Blood (NEGATIVE) Urine Nitrite (NEGATIVE) Urine Bilirubin (NEGATIVE) Urine Urobilinogen (NORMAL) E.U./dL Ur Leukocyte Esterase (NEGATIVE) Urine RBC (0-5) /HPF Urine WBC (0-3) /HPF Ur Squamous Epith Cells (<= Few) Urine Bacteria (None Seen) /HPF Ur Microscopic Review Urine Culture Comments 08/16/24 08/16/24 Range/Units 12:05 10:16 WBC 10.6 (4.8-10.8) x10^3/uL RBC 4.69 L (4.70-6.10) 10^6/uL Hgb 14.3 (14.0-18.0) g/dL Hct 44.8 (42.0-52.0) % MCV 95.5 H (80.0-94.0) fL MCH 30.5 (27.0-31.0) pg MCHC 31.9 L (32.0-36.0) g/dL RDW 12.9 (12.0-15.0) % Plt Count 207 (130-450) 10^3/uL MPV 9.0 (7.4-11.4) fL Neut # (Auto) 9.2 H (1.5-6.6) 10^3/uL Lymph # (Auto) 0.6 L (1.5-3.5) 10^3/uL [place] # (Auto) 0.7 (0.0-1.0) 10^3/uL Eos # (Auto) 0.1 (0.0-0.7) 10^3/uL Baso # (Auto) 0.0 (0.0-0.1) 10^3/uL Absolute Nucleated RBC 0.00 x10^3/uL Nucleated RBC % 0.0 /100WBC Sodium 137 (135-145) mmol/L Potassium 5.2 H (3.5-4.5) mmol/L Chloride 104 (101-111) mmol/L Carbon Dioxide 27 (21-32) mmol/L Anion Gap 6.0 (6-13) BUN 68 H (6-20) mg/dL Creatinine 4.1 H (0.6-1.3) mg/dL Estimated GFR (MDRD) 14 L (>89) Glucose 110 H (74-104) mg/dL POC Whole Bld Glucose (70-100) mg/dL Calcium 9.0 (8.5-10.3) mg/dL Total Bilirubin 0.7 (0.2-1.0) mg/dL AST 13 (10-42) IU/L ALT 8 L (10-60) IU/L Alkaline Phosphatase 68 (42-121) IU/L Total Protein 6.7 (6.4-8.9) g/dL Albumin 4.0 (3.2-5.5) g/dL Globulin 2.7 (2.1-4.2) g/dL Albumin/Globulin Ratio 1.5 (1.0-2.2) Lipase 18 (11-82) U/L Urine Color BROWN Urine Clarity CLOUDY (CLEAR) Urine pH 8.0 H (5.0-7.5) PH Ur Specific [place] 1.025 (1.002-1.030) Urine Protein >=300 H (NEGATIVE) mg/dL Urine Glucose (UA) NEGATIVE (NEGATIVE) mg/dL Urine Ketones NEGATIVE (NEGATIVE) mg/dL Urine Occult Blood LARGE H (NEGATIVE) Urine Nitrite POSITIVE H (NEGATIVE) Urine Bilirubin SMALL H (NEGATIVE) Urine Urobilinogen 0.2 (NORMAL) (NORMAL) E.U./dL Ur Leukocyte Esterase SMALL H (NEGATIVE) Urine RBC TNTC H (0-5) /HPF Urine WBC 11-25 H (0-3) /HPF Ur Squamous Epith Cells RARE Squamous (<= Few) Urine Bacteria Few (None Seen) /HPF Ur Microscopic Review INDICATED Urine Culture Comments INDICATED Assessment/Plan Problem List (1) Acute dehydration: Impression: 83-year-old male with significant Parkinson's, cachexia, poor p.o. intake with severe renal dysfunction in the setting of obstructing right renal system likely malignant in nature now status post stent placement August 16, 2024. Overnight renal function has worsened with oliguria. I recommended bladder scan to assure catheter drainage appropriately. Continue catheter replacement. I would monitor for now and hope that his system improves over the next day or so. If any concern for worsening hyperkalemia etc. he may be transferred out for nephrology and dialysis His ureteral stent needs to be exchanged or removed within 3 months
--- NOTE | 2024-08-17 09:59 | XRAY Report ---
PROCEDURE: FL OR C-Arm Procedure INDICATIONS: Surgical Procedure FLUORO TIME: 0.3 MIN TECHNIQUE: Intraoperative/procedure fluoroscopy COMPARISON: None. FINDINGS: 5 fluoroscopic spot image submitted, reported under separate procedure report. Images demonstrate mod erate to severe right hydronephrosis with right ureteral stent placement. Fluoroscopic dose is noted as reference air Kerma 1.2 mGy, dose area product 22.77 uGy.m2 Fluoroscopy time of 0.3 minutes. IMPRESSION: Fluoroscopy as discussed above. Reviewed by: Aubrey Villalobos MD on 08/17/2024 9:57 AM PST Approved by: Aubrey Villalobos MD on 08/17/2024 9:57 AM PST Station ID: [id number]
[2024-08-17] MEDS: FUROSEMIDE 40 MG/4 ML VIAL IVP SCH (13:23)
[2024-08-17] MEDS: DEXTROSE 50% ABBOJECT 25 GM/50 ML SYRINGE IVP ONE (14:28)
[2024-08-17] MEDS: INSULIN REGULAR, HUMAN 300 UNIT/3 ML PEN IVP ONE (14:32)
[2024-08-17] MEDS: CALCIUM GLUC 1,000MG/50ML-NACL 1,000 MG/50 ML BAG IV ONE (14:35)
[2024-08-17] MEDS: SODIUM ZIRCONIUM CYCLOSILICATE 5 GM PACKET PO ONE (14:39)
[2024-08-17] MEDS: polyethylene glycoL 3350 17 GM PACKET PO SCH (14:44)
[2024-08-17] MEDS: SODIUM BICARBONATE ABBOJECT 50 MEQ/50 ML SYRINGE IVP ONE (16:06)
[2024-08-18] MEDS: METOPROLOL 5 MG/5 ML VIAL IVP SCH (02:23)
[2024-08-18] MEDS ORDERED: METOPROLOL 5 MG/5 ML VIAL IVP PRN (04:09)
[2024-08-18] MEDS: SODIUM CHLORIDE 0.9% 250 ML IV ONE (04:30)
[2024-08-18 05:27] LABS: BASOPHILS % (AUTO) 0.4 %; EOSINOPHILS % (AUTO) 0.1 %; HCT - HEMATOCRIT 36.2 % (42.0-52.0); HGB - HEMOGLOBIN 11.9 g/dL (14.0-18.0); LYMPHOCYTES # (AUTO) 0.7 10^3/uL (1.5-3.5); LYMPHOCYTES % (AUTO) 6.3 %; MEAN CORPUSCULAR HEMOGLOBIN 30.4 pg (27.0-31.0); MEAN CORPUSCULAR HGB CONC 32.9 g/dL (32.0-36.0); MEAN CORPUSCULAR VOLUME 92.6 fL (80.0-94.0); MEAN PLATELET VOLUME 9.8 fL (7.4-11.4); MONOCYTES # (AUTO) 0.7 10^3/uL (0.0-1.0); NEUTROPHILS # (AUTO) 9.8 10^3/uL (1.5-6.6); NEUTROPHILS % (AUTO) 86.8 %; PLT - PLATELET COUNT 196 10^3/uL (130-450); RED BLOOD COUNT 3.91 10^6/uL (4.70-6.10); RED CELL DISTRIBUTION WIDTH 12.9 % (12.0-15.0); WHITE BLOOD COUNT 11.3 x10^3/uL (4.8-10.8)
[2024-08-18 05:46] LABS: CALCIUM 7.8 mg/dL (8.5-10.3); CREATININE 6.2 mg/dL (0.6-1.3); POTASSIUM 5.2 mmol/L (3.5-4.5)
--- NOTE | 2024-08-18 10:43 | Discharge Summary ---
"Discharge Summary Admit Date: 08/16/24 Discharge Date: 08/18/24 Discharging Provider: Dr. Pham Code Status: Attempt Resuscitation DIAGNOSES Admission Diagnoses: Acute renal failure Acute dehydration History of Parkinsondisease History of bladder cancer Discharge Diagnoses with Status of Each Condition: Acute renal failure: Patient is transferred to higher level of care for hemodialysis due to worsening acute renal failure Acute dehydration: resolved Parkinson disease: Chronic Bladder cancer: Chronic in remission since 2019, However possible ureteral stent obstruction was due to a new mass which may be related to his History of bladder cancer HPI History of Present Illness: Patient is a 83-year-old male with a history of bladder cancer currently in remission since 2019, history of ureteral stones, Parkinson's disease who presents because he was not making any urine at home. Per patient and patient's at bedside, he has not made much urine in the last 2 days. He states that he tries to drink at least 3 small cups of water a day, but it is hard for him to get to the washroom in time, and he worries about urinating on himself. His states that it is probably even less water than this. He has had a few kidney stones in the past, and does not have pain like he did with those. He states the last time he had it, and it was seen on his CAT scan, it did pass. Patient and his states that he does eat regularly, and drinks Ensure regularly. His appetite has been decreased. For the past 2 days, he has felt unwell, although he cannot specify how. He just states that he does not feel like eating, and his appetite has been poor. He denies any fevers, chills, shortness of breath, cough, abdominal pain, blood in his urine. He also denies any dysuria, urinary frequency. He does not any urine incontinence, however due to his Parkinson's, he moves quite slowly, and is sometimes unable to make it to the restroom in time. In the emergency room, he was normotensive at 131/95, heart rate was 67, he was afebrile, saturating 99% on room air. Lab work showed elevated creatinine of 4.1 with a potassium of 5.2. His creatinine 08/12/2023 was 0.9. He was admitted for acute kidney injury. He was started on IV fluids. CONSULTS | PROCEDURES Consultations: Urology Procedures: Right ureteral stent placement HOSPITAL COURSE Hospital Course: Patient was admitted for difficulties of urination. Ultrasound indicated hydronephrosis with a possible obstruction of the right ureter. Urology was consulted who placed a stent in the right ureter. Urology feels that obstruction was due to a mass, possibly related to his history of bladder cancer. Upon stent placement possible strain from the right kidney. Patient was started on Rocephin. Renal chemistry was not after procedure. Creatinine elevated to 6.2. Patient was consistently hyper per kalemia, BUN increased to 94 and patient was busy and uremic. Fluid challenge and Lasix challenge was unsuccessful. Patient will be transferred [facility] for hemodialysis. Accepting hospialist; Dr. Campbell Patient had brief episodes of atrial fibrillation. Metoprolol as needed was given. Currently patient is in sinus rhythm. ALLERGIES Allergies Allergy/AdvReac Type Severity Reaction Status Date / Time sulfamethoxazole (From Allergy Nausea Verified 08/16/24 09:55 Bactrim) trimethoprim (From Bactrim) Allergy Nausea Verified 08/16/24 09:55 MEDICATIONS Ambulatory Orders Medication Instructions Recorded Confirmed acetaminophen 325 mg tablet 650 mg PO Q4H PRN pain (scale 08/16/24 08/16/24 score 1-3) PHYSICAL EXAM AT DISCHARGE General Appearance: positive Alert and Mild distress Eyes Bilateral: positive Normal inspection and PERRL ENT: positive ENT inspection nml and Pharynx nml Neck: positive Nml inspection and Trachea midline Respiratory: positive Chest non-tender and No respiratory distress Cardiovascular: positive Regular rate & rhythm Abdomen: positive Non-tender, No organomegaly and No distention Skin: positive Color nml and No rash Extremities: positive Non-tender and Full ROM Neurologic/Psychiatric: positive Oriented x3 and CN's nml (2-12) LABS 08/18/24 05:08 08/18/24 05:08 DIAGNOSTIC IMAGING Diagnostic Imaging Results: Final report reviewed FOLLOW UP Follow Up: Patient is being transferred to Secondary hospital for hemodialysis TIME SPENT Time Spent in Discharge (Minutes): 35 Discharge Plan Discharge Patient Disposition: 02 Transfer Acute Care Hosp Condition: Stable Medically Cleared Date:: 08/18/24 Prescriptions: Continued acetaminophen 325 mg tablet 650 mg PO Q4H PRN (Reason: pain (scale score 1-3)) Activity Restrictions: Activity as Tolerated Diet: Regular Assessment: You were admitted on 08/16/2024 for the inability to make urine . Retroperitoneal ultrasound indicated hydronephrosis and possible obstruction in the R ureter. Urology was consulted. Ureteral stent was placed. Upon stent placement significant amount of pus was drained from kidney. Obstruction was likely secondary to a mass related to your bladder cancer. You experienced acute renal failure per and post procedure. Bell were started on Rocephin for acute pyelonephritis. Renal failure progressed to the point where you need hemodialysis. You were transferred to a higher level of care hospital for hemodialysis. Plan of Treatment: You are being transferred to [facility] for hemodialysis. Print Language: Canadian Patient Instructions: Surgery Anesthesia After Stand Alone Forms: PCP List"
[2024-08-18] MEDS: SODIUM CHLORIDE 0.9% 1,000 ML IV SCH (11:41)
--- NOTE | 2024-08-18 12:57 | CT Report ---
PROCEDURE: CT Abdomen/Pelvis WO INDICATIONS: follow up on stent placement, hydronephrosis TECHNIQUE: A CT scan of the abdomen and pelvis was performed without the use of intravenous contrast. Images we re recorded and evaluated at appropriate window settings. Reformats: coronal and sagittal. For radiat ion dose reduction, the following was used: automated exposure control, adjustment of mA and/or kV ac cording to patient size. COMPARISON: 08/12/2023. FINDINGS: Image quality: Diagnostic. Lower chest: Small to moderate bilateral pleural effusion is seen with adjacent compressive atelectas is/infiltrate in posterior aspect of bilateral lower lobes. Hazy groundglass opacity are also seen in volving dependent portion of bilateral lung diaz concerning for pulmonary edema versus early infilt rates. No pneumothorax. Heart size is enlarged, no pericardial effusion. Liver: No contour-deforming mass. Gallbladder: No radiopaque stones or wall thickening. Biliary tree: No intrahepatic or extrahepatic dilation, accounting for age. Spleen: No splenomegaly. Pancreas: No pancreatic ductal dilation. Adrenals: No adrenal nodule. Kidneys and ureters: Presence of right ureteral stent with moderate right-sided hydronephrosis extend ing to the level of right UPJ. No significant right hydroureter. No obstructing stone is seen. Mild p rominence of left renal collecting system and left ureter is seen extending to the level of left UPJ with suggestion of a 3 mm left UVJ stone series 2 image 136. Stomach, bowel and peritoneum: No gastric or small bowel dilation. No abnormal wall thickening. No pa thologic free fluid. No peritoneal free air. Mild fecal stasis in the colon is seen. Lymph nodes: No central or retroperitoneal adenopathy. Vessels: No infrarenal aortic aneurysm. Reproductive organs: Enlarged prostate gland with mass effect on floor of urinary bladder. Bladder: Shelley catheter is seen in partially distended urinary bladder. No gross bladder wall abnorma lity. Pelvic lymph nodes: No adenopathy by size criteria. Bones: No aggressive osseous abnormality. Degenerative disc disease throughout lumbar spine. Other: No significant ventral or inguinal hernia. Generalized anasarca is seen. IMPRESSION: 1. Presence of right ureteral stent. Moderate right-sided hydronephrosis extending to the level of ri ght UVJ. No significant hydroureter. No obstructing stone is seen. 2. Mild left-sided hydronephrosis and hydroureter with suggestion of a 3 mm left UVJ stone. 3. Shelley catheter in urinary bladder. Enlarged prostate gland with mass effect on floor of urinary bl adder. 4. Suggestion of extensive bibasilar infiltrates/atelectasis. No pneumothorax. Right greater than lef t bilateral pleural effusion. Generalized anasarca consistent with third spacing. 5. No bowel obstruction or abnormal bowel wall thickening. Mild to moderate constipation. No peritone al free air. Reviewed by: Vincent Adams MD on 08/18/2024 12:55 PM PST Approved by: Vincent Adams MD on 08/18/2024 12:55 PM PST Station ID: [id number]
[2024-08-18 13:51] VITALS: TEMP 98.6
[2024-08-18] MEDS: METOPROLOL 5 MG/5 ML VIAL IVP ONE (13:57)
[2024-08-18 14:22] VITALS: BP 131/92; O2SAT 96
[2024-08-18] MEDS: CALCIUM GLUC 1,000MG/50ML-NACL 1,000 MG/50 ML BAG IV ONE (14:51)
[2024-08-21] MEDS ORDERED: SODIUM CHLORIDE FLUSH 0.9% 10 ML SYRINGE IVP PRN (18:01)
[2024-08-21] MEDS ORDERED: ACETAMINOPHEN 325 MG TABLET PO PRN (18:01)
[2024-08-21] MEDS ORDERED: ONDANSETRON ODT 4 MG TABLET TL PRN (18:01)
[2024-08-21] MEDS ORDERED: hydrALAZINE INJ 20 MG/ML VIAL IVP PRN (18:05)
[2024-08-21] MEDS ORDERED: SODIUM CHLORIDE 0.9% 1,000 ML IV SCH (19:00)
[2024-08-22] MEDS ORDERED: SODIUM CHLORIDE FLUSH 0.9% 10 ML SYRINGE IVP SCH (01:00)
[2024-08-22] MEDS ORDERED: FAMOTIDINE 20 MG/2 ML VIAL IVP SCH (09:00)
[2024-08-24 05:57] LABS: BASOPHILS % (AUTO) 0.1 %; EOSINOPHILS % (AUTO) 0.3 %; HCT - HEMATOCRIT 40.1 % (42.0-52.0); HGB - HEMOGLOBIN 12.4 g/dL (14.0-18.0); LYMPHOCYTES # (AUTO) 0.8 10^3/uL (1.5-3.5); LYMPHOCYTES % (AUTO) 6.6 %; MEAN CORPUSCULAR HEMOGLOBIN 29.7 pg (27.0-31.0); MEAN CORPUSCULAR HGB CONC 30.9 g/dL (32.0-36.0); MEAN CORPUSCULAR VOLUME 96.2 fL (80.0-94.0); MEAN PLATELET VOLUME 11.4 fL (7.4-11.4); MONOCYTES # (AUTO) 0.7 10^3/uL (0.0-1.0); MONOCYTES % (AUTO) 5.9 %; NEUTROPHILS % (AUTO) 86.8 %; PLT - PLATELET COUNT 206 10^3/uL (130-450); RED BLOOD COUNT 4.17 10^6/uL (4.70-6.10); RED CELL DISTRIBUTION WIDTH 13.1 % (12.0-15.0); WHITE BLOOD COUNT 11.5 x10^3/uL (4.8-10.8)
[2024-08-24 06:12] LABS: BUN - BLOOD UREA NITROGEN 66 mg/dL (6-20); CARBON DIOXIDE - CO2 32 mmol/L (21-32); CHLORIDE 105 mmol/L (101-111); CREATININE 1.4 mg/dL (0.6-1.3); GFR - MDRD 48 (>89); GLUCOSE 135 mg/dL (74-104); IONIZED CALCIUM IF INDICATED YES; POTASSIUM 3.5 mmol/L (3.5-4.5); SODIUM 147 mmol/L (135-145)
[2024-08-24 06:20] LABS: CALCIUM, IONIZED 1.05 mmol/L (1.15-1.33); VBG PH 7.538 (7.31-7.41)
[2024-08-25 05:57] LABS: BASOPHILS % (AUTO) 0.2 %; EOSINOPHILS # (AUTO) 0.1 10^3/uL (0.0-0.7); EOSINOPHILS % (AUTO) 0.5 %; HCT - HEMATOCRIT 40.4 % (42.0-52.0); HGB - HEMOGLOBIN 12.7 g/dL (14.0-18.0); LYMPHOCYTES # (AUTO) 0.9 10^3/uL (1.5-3.5); LYMPHOCYTES % (AUTO) 7.5 %; MEAN CORPUSCULAR HEMOGLOBIN 30.7 pg (27.0-31.0); MEAN CORPUSCULAR HGB CONC 31.4 g/dL (32.0-36.0); MEAN CORPUSCULAR VOLUME 97.6 fL (80.0-94.0); MEAN PLATELET VOLUME 11.2 fL (7.4-11.4); MONOCYTES # (AUTO) 0.6 10^3/uL (0.0-1.0); MONOCYTES % (AUTO) 5.5 %; NEUTROPHILS # (AUTO) 9.9 10^3/uL (1.5-6.6); NEUTROPHILS % (AUTO) 85.8 %; PLT - PLATELET COUNT 164 10^3/uL (130-450); RED BLOOD COUNT 4.14 10^6/uL (4.70-6.10); RED CELL DISTRIBUTION WIDTH 13.1 % (12.0-15.0); WHITE BLOOD COUNT 11.5 x10^3/uL (4.8-10.8)
[2024-08-25 06:11] LABS: BUN - BLOOD UREA NITROGEN 60 mg/dL (6-20); CALCIUM 8.2 mg/dL (8.5-10.3); CARBON DIOXIDE - CO2 36 mmol/L (21-32); CHLORIDE 106 mmol/L (101-111); CREATININE 1.5 mg/dL (0.6-1.3); GFR - MDRD 44 (>89); GLUCOSE 108 mg/dL (74-104); IONIZED CALCIUM IF INDICATED YES; POTASSIUM 3.9 mmol/L (3.5-4.5); SODIUM 149 mmol/L (135-145)
[2024-08-25 06:25] LABS: CALCIUM, IONIZED 1.04 mmol/L (1.15-1.33); VBG PH 7.46 (7.31-7.41)
== END 2024-08-18 14:50 | disposition short-term general hospital (02) | DRG 682 ==
LOC: ED 09:27 → MS2 09:27
PROVIDERS: ADMIT Internal Medicine; ATTEND Internal Medicine
DX: E87.5 Hyperkalemia; G20.A1 Parkinson's disease without dyskinesia, without mention of fluctuations; Z85.51 Personal history of malignant neoplasm of bladder; N17.9 Acute kidney failure, unspecified; R53.83 Other fatigue; E86.0 Dehydration; Z68.1 Body mass index [BMI] 19.9 or less, adult; R63.0 Anorexia; J96.91 Respiratory failure, unspecified with hypoxia; I48.91 Unspecified atrial fibrillation; N13.6 Pyonephrosis; R53.1 Weakness

== ENCOUNTER 2024-08-21 00:02 | Inpatient (IN) ==
[2024-08-21] MEDS ORDERED: ACETAMINOPHEN 325 MG TABLET PO PRN (18:35)
[2024-08-21] MEDS ORDERED: SODIUM CHLORIDE FLUSH 0.9% 10 ML SYRINGE IVP PRN (18:35)
[2024-08-21] MEDS ORDERED: ONDANSETRON ODT 4 MG TABLET TL PRN (18:35)
[2024-08-21] MEDS ORDERED: hydrALAZINE INJ 20 MG/ML VIAL IVP PRN (18:38)
[2024-08-22] MEDS: SODIUM CHLORIDE 0.9% 1,000 ML IV SCH (00:42)
[2024-08-22] MEDS: SODIUM CHLORIDE FLUSH 0.9% 10 ML SYRINGE IVP SCH (00:43)
--- NOTE | 2024-08-22 01:47 | PROVIDER PROGRESS NOTE ---
Engine Assembler Note Engine Assembler Note Engine Assembler Note: per rn "Pt Direct Admit from Hospital in [place]. Pt was initially at this hospital with R Hydronephrosis, had a cystoscopy w/ ureteral stent placement. Pt transfered to [facility] in [place] for nephrology and possible dialysis. It was deteremined that pt did not need dialysis and family requested to have pt transfered closer to home. Pt has now arrived and is an almost hysterical state, stating that something has happened to her , he's not the same. Pt is drowsy/lethargic, not super- interactive, he's oriented to self. He stated that he's tired x2 and he doesn't have a voice. Vitals are stable. Currently on Tele, HR 70-120's. Pt is running either Sinus Arrhythmia w/ freq PVC's/PAC's vs Afib." cbc, cmp, mag, phos ordered head ct ordered ua ordered ammonia ordered pt seen on video, with at bedside describing condition - pt resting in bed, nad, but minimally responsive. was having ice chips earlier per rn - no resp distress noted in pt per discussions with rn, pt has presented in his similar condition before, especially at night (lethargic / sleepy). no reported sedating meds given at prior facility.
[2024-08-22 01:56] LABS: BASOPHILS % (AUTO) 0.1 %; HCT - HEMATOCRIT 42.1 % (42.0-52.0); HGB - HEMOGLOBIN 13.1 g/dL (14.0-18.0); LYMPHOCYTES # (AUTO) 0.6 10^3/uL (1.5-3.5); LYMPHOCYTES % (AUTO) 4.7 %; MEAN CORPUSCULAR HEMOGLOBIN 30.1 pg (27.0-31.0); MEAN CORPUSCULAR HGB CONC 31.1 g/dL (32.0-36.0); MEAN CORPUSCULAR VOLUME 96.8 fL (80.0-94.0); MEAN PLATELET VOLUME 10.8 fL (7.4-11.4); MONOCYTES % (AUTO) 8.2 %; NEUTROPHILS # (AUTO) 10.5 10^3/uL (1.5-6.6); NEUTROPHILS % (AUTO) 86.8 %; PLT - PLATELET COUNT 198 10^3/uL (130-450); RED BLOOD COUNT 4.35 10^6/uL (4.70-6.10); RED CELL DISTRIBUTION WIDTH 12.9 % (12.0-15.0); WHITE BLOOD COUNT 12.1 x10^3/uL (4.8-10.8)
[2024-08-22 02:10] LABS: ALBUMIN 3.2 g/dL (3.2-5.5); ALBUMIN/GLOBULIN RATIO 1.2 (1.0-2.2); BILIRUBIN,TOTAL 0.5 mg/dL (0.2-1.0); CALCIUM 8.2 mg/dL (8.5-10.3); CHOL/HDL RATIO 3.9 (<5.0); CHOLESTEROL 114 mg/dL; CREATININE 1.9 mg/dL (0.6-1.3); HDL CHOLESTEROL 29 mg/dL; LDL CHOLESTEROL,CALCULATED 61 mg/dL; LDL/HDL RATIO 2.1 (<3.6); PHOSPHORUS 4.4 mg/dL (2.5-5.0); POTASSIUM 3.6 mmol/L (3.5-4.5); TOTAL PROTEIN 5.9 g/dL (6.4-8.9); TRIGLYCERIDES 120 mg/dL; VLDL CHOLESTEROL 24 mg/dL
[2024-08-22 02:26] LABS: THYROID STIMULATING HORMONE 1.53 uIU/mL (0.34-5.60)
--- NOTE | 2024-08-22 02:54 | HISTORY & PHYSICAL EXAMINATION ---
Chief Complaint Chief Complaint Chief Complaint: wiliam, ams History of Present Illness History of Present Illness HPI Comment/Other: pt directly admitted from outside facility after being transferred there for wiliam with concern for possible need for renal evaluation + HD. pt was not a candidate for HD, and advised to continue with iv hydration and supportive mgmt. per family request, pt has returned to facility for ongoing care. has noted that pt seems more lethargic than usual and is concerned about what's happening. no focal deficits noted or reported per rn and not sedating meds have been given to pt. pt with h/o parkinson's disease, dementia, and bladder CA. s/p R ureter stend placement 08/16/2024. currently on IVF. most recent Cr 1.9 with bun >70. Review of Systems Status of ROS: unobtainable due to medical condition and unobtainable due to mental status PFSH Social History Social History Smoking Status: Never smoker Second hand tobacco smoke exposure: No Do you dip or chew tobacco?: No Do you vape?: No Patient requests smoking cessation consult: No Initiate information on smoking cessation: No Living arrangement: At home Marital Status: Living Condition: With spouse/s.o. Relationship: Spouse Level: Independent Do you feel safe in your home environment?: No Suffered physical, verbal, emotional, or financial abuse?: No History of Abuse: No ETOH Use: None Substance Use: denies use Are you sexually active?: No POLST Patient has POLST: No POLST Status: Full Code (Will discuss further with each other prior to filling out POLST/deciding code status) Meds/Allgy Home Medications Ambulatory Orders Medication Instructions Recorded Confirmed acetaminophen 325 mg tablet 650 mg PO Q4H PRN pain (scale 08/16/24 08/16/24 score 1-3) Allergies Allergies Allergy/AdvReac Type Severity Reaction Status Date / Time sulfamethoxazole (From Allergy Nausea Verified 08/16/24 09:55 Bactrim) trimethoprim (From Bactrim) Allergy Nausea Verified 08/16/24 09:55 Exam Exam gen - resting in bed with at bedside, nad, but not very responsive to questions heent - nc/at heart - please review to nursing charting and prior records chest / lungs - no obvious distress noted, for details please refer to nursing charting and prior records. on RA abd - flat msk - no acute trauma noted. overall thin appearance Conclusion/Plan Problem List (1) Acute kidney failure: Plan: pt with - - ams multifactorial uremia + elevated Na + recent UTI pt with h/o dementia as well no focal deficits head CT ordered, with results pending continue neuro checks check ammonia - hypernatremia sodium >150, with prior in 130s likely contributory to above no focal deficits IVF changed to D5W, and trend Na levels goal correction of 10 mEq/L in 24 h - wiliam pt with bladder CA prior Cr >6 improving, with current Cr 1.9 still with elevated BUN > 70, contributory to ams (above) f/u labs, electrolytes, neuro status further orders per clinical course Qualifiers: Acute renal failure type: unspecified Qualified Code(s): N17.9 - Acute kidney failure, unspecified Lab Results 08/22/24 01:51 08/22/24 01:51
[2024-08-22] MEDS: DEXTROSE 5% 1,000 ML IV SCH (03:52)
[2024-08-22] MEDS ORDERED: DEXTROSE 5% 1,000 ML IV SCH (04:00)
[2024-08-22] MEDS: POTASSIUM CHLOR 10 MEQ/100 ML 10 MEQ/100 ML BAG IV ONE (05:46)
[2024-08-22 06:15] LABS: CALCIUM 8.2 mg/dL (8.5-10.3); CREATININE 1.9 mg/dL (0.6-1.3); POTASSIUM 3.5 mmol/L (3.5-4.5)
[2024-08-22 06:16] LABS: BILIRUBIN,URINE NEGATIVE (NEGATIVE); GLUCOSE, URINE (UA) NEGATIVE (NEGATIVE); KETONES,URINE (UA) NEGATIVE (NEGATIVE); LEUKOCYTE ESTERASE, URINE SMALL (NEGATIVE); NITRITE,URINE NEGATIVE (NEGATIVE); OCCULT BLOOD,URINE LARGE (NEGATIVE); PROTEIN,URINE 30 mg/dL (NEGATIVE); UROBILINOGEN,URINE 0.2 (NORMAL) E.U./dL (NORMAL)
[2024-08-22 06:29] LABS: BACTERIA,URINE Rare /HPF (None Seen); CLARITY,URINE CLEAR (CLEAR); SQUAMOUS EPITHELIAL CELL,UR RARE Squamous (<= Few)
--- NOTE | 2024-08-22 06:43 | CT Report ---
PROCEDURE: CT Head WO INDICATIONS: ams TECHNIQUE: Noncontrast 4.5 mm thick angled axial sections acquired from the foramen magnum to the vertex. For r adiation dose reduction, the following was used: automated exposure control, adjustment of mA and/or kV according to patient size. COMPARISON: None. FINDINGS: Image quality: Excellent. CSF spaces: Basal cisterns are patent. No extra-axial fluid collections. Ventricles are normal in size and shape. Brain: Likely calcified mass in the right suprasellar region measuring 2.2 x 1.5 cm. No midline shif t. No intracranial hemorrhage. [place]aza-white matter interface is normal. Age-related global volume los s and chronic microvascular ischemic changes. Intracranial atherosclerotic vascular calcifications. Skull and face: Calvarium and visualized facial bones are intact, without suspicious lesions. Sinuses: Moderate right maxillary sinus because of thickening. Visualized sinuses and mastoids are o therwise clear. IMPRESSION: 1.No acute intracranial pathology. 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 Recommend nonurgent MRI brain with and without contrast for further evaluation. Findings are concordant with preliminary interpretation provided by [facility]. Reviewed by: Maximino Andersen MD on 08/22/2024 6:42 AM PST Approved by: Maximino Andersen MD on 08/22/2024 6:42 AM PST Station ID: [id number]
[2024-08-22] MEDS: METOPROLOL 5 MG/5 ML VIAL IVP ONE (06:59)
[2024-08-22 07:00] LABS: ESTIMATED AVERAGE GLUCOSE 105 mg/dL (70-100); HEMOGLOBIN A1c% 5.3 % (4.27-6.07)
[2024-08-22 07:45] LABS: CALCIUM 8.3 mg/dL (8.5-10.3); CREATININE 1.9 mg/dL (0.6-1.3); POTASSIUM 3.8 mmol/L (3.5-4.5)
[2024-08-22 08:59] LABS: CALCIUM 8.4 mg/dL (8.5-10.3); CREATININE 1.9 mg/dL (0.6-1.3)
--- NOTE | 2024-08-22 14:07 | PROVIDER PROGRESS NOTE ---
Subjective Prog Note Date Prog Note Date: 08/22/24 Prog Note Time: 14:05 Subjective Subjective: pt directly admitted from outside facility after being transferred there for [facility] with concern for possible need for renal evaluation + HD. pt was not a candidate for HD, and advised to continue with iv hydration and supportive mgmt. per family request, pt has returned to facility for ongoing care. has noted that pt seems more lethargic than usual and is concerned about what's happening. no focal deficits noted or reported per rn and not sedating meds have been given to pt. pt with h/o parkinson's disease, dementia, and bladder CA. s/p R ureter stend placement 08/16/2024. currently on IVF. most recent Cr 1.9 with bun >70. Pt is full code !10/23/2023: Pt is resting in bed, lethargic, appears quite weak. at bedside. Current Medications Current Medications Current Medications: Current Medications Generic Name Dose Route Start Last Admin Trade Name Freq PRN Reason Stop Dose Admin Acetaminophen 650 mg 08/21/24 18:35 Acetaminophen 325 Mg Tablet PO Q4HR PRN Pain 1 to 4, or Fever Hydralazine HCl 10 mg 08/21/24 18:38 Hydralazine Inj 20 Mg/Ml Vial IVP DAILY PRN Hypertensive Emergency Dextrose 1,000 mls @ 75 mls/hr 08/22/24 04:00 08/22/24 03:52 D5w IV 75 mls/hr .[id number] NAVIN Administration Ondansetron HCl 4 mg 08/21/24 18:35 Ondansetron Odt 4 Mg Tablet TL Q6HR PRN Nausea / Vomiting Sodium Chloride 10 ml 08/21/24 18:35 Sodium Chloride Flush 0.9% 10 Ml Syringe IVP PRN PRN NEEDED PER PROVIDER ORDERS Sodium Chloride 10 ml 08/22/24 01:00 08/22/24 09:42 Sodium Chloride Flush 0.9% 10 Ml Syringe IVP Not Given 0100,0900,1700 NAVIN Objective Vital Signs/Intake & Output Vital Signs: Vital Signs x48h Temp Pulse Pulse Resp BP BP Pulse Ox 08/22/24 12:14 36.7 C 122 H 18 106/71 94 08/22/24 08:00 36.6 C 127 H 18 124/87 95 08/22/24 07:45 36.6 C 118 H 18 130/89 97 08/22/24 07:42 36.4 C L 125 H 18 124/85 93 08/22/24 07:15 115 H 126/90 08/22/24 07:10 98 128/89 08/22/24 07:05 132 H 127/85 08/22/24 06:59 135 H 130/93 H Intake & Output: Intake & Output 08/19/24 08/20/24 08/21/24 08/22/24 23:59 23:59 23:59 23:59 Intake Total 173 / 173 Output Total 225 / 225 Balance -52 / -52 Weight (kg) 53.5 kg Objective General Appearance: positive No acute distress and Alert ENT: positive ENT inspection nml Neck: positive Nml inspection and Trachea midline Respiratory: positive Chest non-tender and No respiratory distress Cardiovascular: positive Other (Sinus tap, paroxysmal A-fib) Abdomen: positive Non-tender and No organomegaly Skin: positive Color nml and No rash Extremities: positive Non-tender and Full ROM Neurologic/Psychiatric: positive Oriented x3 and CN's nml (2-12) Lab Results 08/22/24 01:51 08/22/24 10:16 Other Labs: Lab Results x24hrs 08/22/24 08/22/24 08/22/24 Range/Units 10:16 08:31 07:13 WBC (4.8-10.8) x10^3/uL RBC (4.70-6.10) 10^6/uL Hgb (14.0-18.0) g/dL Hct (42.0-52.0) % MCV (80.0-94.0) fL MCH (27.0-31.0) pg MCHC (32.0-36.0) g/dL RDW (12.0-15.0) % Plt Count (130-450) 10^3/uL MPV (7.4-11.4) fL Neut # (Auto) (1.5-6.6) 10^3/uL Lymph # (Auto) (1.5-3.5) 10^3/uL Glenn # (Auto) (0.0-1.0) 10^3/uL Eos # (Auto) (0.0-0.7) 10^3/uL Baso # (Auto) (0.0-0.1) 10^3/uL Absolute Nucleated RBC x10^3/uL Nucleated RBC % /100WBC Sodium 150 H 150 H 152 H (135-145) mmol/L Potassium 4.0 3.8 (3.5-4.5) mmol/L Chloride 107 106 (101-111) mmol/L Carbon Dioxide 30 32 (21-32) mmol/L Anion Gap 13.0 14.0 H (6-13) BUN 82 H* 81 H* (6-20) mg/dL Creatinine 1.9 H 1.9 H (0.6-1.3) mg/dL Estimated GFR (MDRD) 34 L 34 L (>89) Glucose 167 H 156 H (74-104) mg/dL Estimat Average Glucose (70-100) mg/dL Hemoglobin A1c % (4.27-6.07) % Lactic Acid 2.3 H (0.5-2.2) mmol/L Calcium 8.4 L 8.3 L (8.5-10.3) mg/dL Phosphorus (2.5-5.0) mg/dL Magnesium (1.7-2.3) mg/dL Total Bilirubin (0.2-1.0) mg/dL AST (10-42) IU/L ALT (10-60) IU/L Alkaline Phosphatase (42-121) IU/L Ammonia (18-72) umol/L Total Protein (6.4-8.9) g/dL Albumin (3.2-5.5) g/dL Globulin (2.1-4.2) g/dL Albumin/Globulin Ratio (1.0-2.2) Triglycerides mg/dL Cholesterol ( - 200) mg/dL LDL Cholesterol, Calc ( - 129) mg/dL VLDL Cholesterol mg/dL HDL Cholesterol (60 - ) mg/dL LDL/HDL Ratio (<3.6) Cholesterol/HDL Ratio (<5.0) TSH (0.34-5.60) uIU/mL Urine Color Urine Clarity (CLEAR) Urine pH (5.0-7.5) PH Ur Specific [place] (1.002-1.030) Urine Protein (NEGATIVE) mg/dL Urine Glucose (UA) (NEGATIVE) mg/dL Urine Ketones (NEGATIVE) mg/dL Urine Occult Blood (NEGATIVE) Urine Nitrite (NEGATIVE) Urine Bilirubin (NEGATIVE) Urine Urobilinogen (NORMAL) E.U./dL Ur Leukocyte Esterase (NEGATIVE) Urine RBC (0-5) /HPF Urine WBC (0-3) /HPF Ur Squamous Epith Cells (<= Few) Urine Bacteria (None Seen) /HPF Urine Culture Comments 08/22/24 08/22/24 08/22/24 Range/Units 05:19 05:00 02:04 WBC (4.8-10.8) x10^3/uL RBC (4.70-6.10) 10^6/uL Hgb (14.0-18.0) g/dL Hct (42.0-52.0) % MCV (80.0-94.0) fL MCH (27.0-31.0) pg MCHC (32.0-36.0) g/dL RDW (12.0-15.0) % Plt Count (130-450) 10^3/uL MPV (7.4-11.4) fL Neut # (Auto) (1.5-6.6) 10^3/uL Lymph # (Auto) (1.5-3.5) 10^3/uL Glenn # (Auto) (0.0-1.0) 10^3/uL Eos # (Auto) (0.0-0.7) 10^3/uL Baso # (Auto) (0.0-0.1) 10^3/uL Absolute Nucleated RBC x10^3/uL Nucleated RBC % /100WBC Sodium 152 H (135-145) mmol/L Potassium 3.5 (3.5-4.5) mmol/L Chloride 108 (101-111) mmol/L Carbon Dioxide 32 (21-32) mmol/L Anion Gap 12.0 (6-13) BUN 81 H* (6-20) mg/dL Creatinine 1.9 H (0.6-1.3) mg/dL Estimated GFR (MDRD) 34 L (>89) Glucose 149 H (74-104) mg/dL Estimat Average Glucose (70-100) mg/dL Hemoglobin A1c % (4.27-6.07) % Lactic Acid 1.6 1.8 (0.5-2.2) mmol/L Calcium 8.2 L (8.5-10.3) mg/dL Phosphorus (2.5-5.0) mg/dL Magnesium 2.0 (1.7-2.3) mg/dL Total Bilirubin (0.2-1.0) mg/dL AST (10-42) IU/L ALT (10-60) IU/L Alkaline Phosphatase (42-121) IU/L Ammonia 18.5 20.6 (18-72) umol/L Total Protein (6.4-8.9) g/dL Albumin (3.2-5.5) g/dL Globulin (2.1-4.2) g/dL Albumin/Globulin Ratio (1.0-2.2) Triglycerides mg/dL Cholesterol ( - 200) mg/dL LDL Cholesterol, Calc ( - 129) mg/dL VLDL Cholesterol mg/dL HDL Cholesterol (60 - ) mg/dL LDL/HDL Ratio (<3.6) Cholesterol/HDL Ratio (<5.0) TSH (0.34-5.60) uIU/mL Urine Color YELLOW Urine Clarity CLEAR (CLEAR) Urine pH 6.0 (5.0-7.5) PH Ur Specific [place] 1.025 (1.002-1.030) Urine Protein 30 H (NEGATIVE) mg/dL Urine Glucose (UA) NEGATIVE (NEGATIVE) mg/dL Urine Ketones NEGATIVE (NEGATIVE) mg/dL Urine Occult Blood LARGE H (NEGATIVE) Urine Nitrite NEGATIVE (NEGATIVE) Urine Bilirubin NEGATIVE (NEGATIVE) Urine Urobilinogen 0.2 (NORMAL) (NORMAL) E.U./dL Ur Leukocyte Esterase SMALL H (NEGATIVE) Urine RBC 6-10 H (0-5) /HPF Urine WBC 4-5 (0-3) /HPF Ur Squamous Epith Cells RARE Squamous (<= Few) Urine Bacteria Rare (None Seen) /HPF Urine Culture Comments INDICATED 08/22/24 Range/Units 01:51 WBC 12.1 H (4.8-10.8) x10^3/uL RBC 4.35 L (4.70-6.10) 10^6/uL Hgb 13.1 L (14.0-18.0) g/dL Hct 42.1 (42.0-52.0) % MCV 96.8 H (80.0-94.0) fL MCH 30.1 (27.0-31.0) pg MCHC 31.1 L (32.0-36.0) g/dL RDW 12.9 (12.0-15.0) % Plt Count 198 (130-450) 10^3/uL MPV 10.8 (7.4-11.4) fL Neut # (Auto) 10.5 H (1.5-6.6) 10^3/uL Lymph # (Auto) 0.6 L (1.5-3.5) 10^3/uL Glenn # (Auto) 1.0 (0.0-1.0) 10^3/uL Eos # (Auto) 0.0 (0.0-0.7) 10^3/uL Baso # (Auto) 0.0 (0.0-0.1) 10^3/uL Absolute Nucleated RBC 0.00 x10^3/uL Nucleated RBC % 0.0 /100WBC Sodium 152 H (135-145) mmol/L Potassium 3.6 (3.5-4.5) mmol/L Chloride 107 (101-111) mmol/L Carbon Dioxide 34 H (21-32) mmol/L Anion Gap 11.0 (6-13) BUN 78 H (6-20) mg/dL Creatinine 1.9 H (0.6-1.3) mg/dL Estimated GFR (MDRD) 34 L (>89) Glucose 135 H (74-104) mg/dL Estimat Average Glucose 105 H (70-100) mg/dL Hemoglobin A1c % 5.3 (4.27-6.07) % Lactic Acid (0.5-2.2) mmol/L Calcium 8.2 L (8.5-10.3) mg/dL Phosphorus 4.4 (2.5-5.0) mg/dL Magnesium 2.0 (1.7-2.3) mg/dL Total Bilirubin 0.5 (0.2-1.0) mg/dL AST 34 (10-42) IU/L ALT 40 (10-60) IU/L Alkaline Phosphatase 54 (42-121) IU/L Ammonia (18-72) umol/L Total Protein 5.9 L (6.4-8.9) g/dL Albumin 3.2 (3.2-5.5) g/dL Globulin 2.7 (2.1-4.2) g/dL Albumin/Globulin Ratio 1.2 (1.0-2.2) Triglycerides 120 mg/dL Cholesterol 114 ( - 200) mg/dL LDL Cholesterol, Calc 61 ( - 129) mg/dL VLDL Cholesterol 24 mg/dL HDL Cholesterol 29 L (60 - ) mg/dL LDL/HDL Ratio 2.1 (<3.6) Cholesterol/HDL Ratio 3.9 (<5.0) TSH 1.53 (0.34-5.60) uIU/mL Urine Color Urine Clarity (CLEAR) Urine pH (5.0-7.5) PH Ur Specific [place] (1.002-1.030) Urine Protein (NEGATIVE) mg/dL Urine Glucose (UA) (NEGATIVE) mg/dL Urine Ketones (NEGATIVE) mg/dL Urine Occult Blood (NEGATIVE) Urine Nitrite (NEGATIVE) Urine Bilirubin (NEGATIVE) Urine Urobilinogen (NORMAL) E.U./dL Ur Leukocyte Esterase (NEGATIVE) Urine RBC (0-5) /HPF Urine WBC (0-3) /HPF Ur Squamous Epith Cells (<= Few) Urine Bacteria (None Seen) /HPF Urine Culture Comments Diagnostic Imaging Diagnostic Imaging Results: positive Final report reviewed Assessment/Plan Problem List (1) Acute kidney failure: Impression: Patient was originally transferred to [place] for possible hemodialysis. nephro was consulted who started patient on bicarb and Lasix drip. Patient made excellent amount urine -> Lasix drips were stopped Bicarb drip was stopped due to patient's new diagnosis of CHF with reduced ejection fraction of 20%. Patient still has an elevated creatinine of 1.9 and a BUN of 82. Restart mild rehydration, monitor urine output. Qualifiers: Acute renal failure type: unspecified Qualified Code(s): N17.9 - Acute kidney failure, unspecified (2) Hypernatremia: Impression: On admission patient's sodium was 150. Continue mild rehydration with D5 water, monitor sodium every 4. Limit correction of sodium to 10 Milliequivalent per 24 hours. (3) Paroxysmal atrial fibrillation: Impression: During patient's stay at [facility] patient had episodic atrial fibrillation. Patient was started on Eliquis at [place]. However currently patient is has dysphagia, he is a high risk for aspiration. And unable to take oral medication. Recommend patient Eliquis 2.5 mg p.o. twice daily when he is able to swallow. start patient on heparin. Lobe with a 2.5 mg IV as needed for heart rate control (4) Parkinson disease: Impression: Chronic, patient is not on Parkinson disease medications. His Parkinson's disease may be contributing to his metabolic encephalopathy. Qualifiers: Dyskinesia presence: unspecified whether dyskinesia Fluctuating manifestations: unspecified whether manifestations fluctuate Qualified Code(s): G20.A1 - Parkinson's disease without dyskinesia, without mention of fluctuations (5) Bladder cancer: Impression: Possible recurrent, obstructive Mass noted during rest Cystoscopy. Pathology is pending. Qualifiers: Bladder location: unspecified site Qualified Code(s): C67.9 - Malignant neoplasm of bladder, unspecified (6) CHF (congestive heart failure): Impression: Echo indicates mildly reduced EF of 20%, Possibly due to recent sepsis. Patient needs follow-up with cardiology for CHF workup. Monitor IV fluids and volume status. (7) Dysphagia: Impression: Patient has dysphagia at baseline, likely multifactorial including pulmonary disease as well as mentation status. Patient failed bedside swallow. Plan for Formal swallow study Recommendation for feeding tube DHT. (8) Complicated UTI (urinary tract infection): Impression: acute UTI with right hydronephrosis status post stent On 08/16/2024 Repeat UA is negative (08/22/2024). Continue antibiotic rocephin for A total antibiotic dosage of 7 days (08/16 - 08/22). (9) Acute metabolic encephalopathy: Impression: This is most likely multifactorial, including advanced Parkinson's disease, renal failure with highly elevated BUN, old age, hx of recent sepsis and overall medical decompensation. Continue to monitor neuro status.
--- NOTE | 2024-08-22 15:03 | PHARMACY PROGRESS NOTE ---
Best Possible Medication History Admit Date and Time: 08/22/24 1328 Home Medications Medication Instructions Recorded Confirmed Type acetaminophen 325 mg tablet 650 mg PO Q4H PRN pain (scale 08/16/24 08/22/24 History score 1-3) Processed by: Pharmacy (COMPLETED ON 08/17/24, PT THEN TRANSFERRED OUT AND TRANSFERRED BACK) Medications reviewed in ED?: No Medication History completed: Yes Secondary Source(s): Previous admit records [facility] Statement: As the person ultimately responsible for medication therapy, providers are able to order a medication from an existing home medication list in [facility] via the "Reconcile Routine" prior to Confirmation of that medication by [employer] support. Such practice is discouraged except when the physician, in their clinical judgment, deems that a medical need exists for a medication without regard to previous use.
[2024-08-22] MEDS: CIPROFLOXACIN 400 MG/200 ML 400 MG/200 ML BAG IV ONE (16:15)
[2024-08-22] MEDS: cefTRIAXone 1 GM in SODIUM CHLORIDE 0.9% MINIBAG 100 ML IV ONE (16:39)
[2024-08-22] MEDS: ENOXAPARIN 60 MG/0.6 ML SYRINGE SUBQ SCH (16:39)
[2024-08-22] MEDS: POTASSIUM CHLORIDE 10 MEQ CAPSULE PO ONE (22:45)
[2024-08-23 07:43] LABS: BASOPHILS % (AUTO) 0.1 %; HCT - HEMATOCRIT 38.2 % (42.0-52.0); HGB - HEMOGLOBIN 12.3 g/dL (14.0-18.0); LYMPHOCYTES # (AUTO) 0.7 10^3/uL (1.5-3.5); LYMPHOCYTES % (AUTO) 5.9 %; MEAN CORPUSCULAR HEMOGLOBIN 30.8 pg (27.0-31.0); MEAN CORPUSCULAR HGB CONC 32.2 g/dL (32.0-36.0); MEAN CORPUSCULAR VOLUME 95.7 fL (80.0-94.0); MEAN PLATELET VOLUME 10.9 fL (7.4-11.4); MONOCYTES # (AUTO) 0.7 10^3/uL (0.0-1.0); MONOCYTES % (AUTO) 5.5 %; NEUTROPHILS % (AUTO) 88.2 %; PLT - PLATELET COUNT 168 10^3/uL (130-450); RED BLOOD COUNT 3.99 10^6/uL (4.70-6.10); RED CELL DISTRIBUTION WIDTH 13.1 % (12.0-15.0); WHITE BLOOD COUNT 12.4 x10^3/uL (4.8-10.8)
[2024-08-23 07:54] LABS: BUN - BLOOD UREA NITROGEN 78 mg/dL (6-20); CALCIUM 8.2 mg/dL (8.5-10.3); CARBON DIOXIDE - CO2 33 mmol/L (21-32); CHLORIDE 106 mmol/L (101-111); CREATININE 1.6 mg/dL (0.6-1.3); GFR - MDRD 41 (>89); GLUCOSE 142 mg/dL (74-104); IONIZED CALCIUM IF INDICATED YES; POTASSIUM 3.2 mmol/L (3.5-4.5); SODIUM 148 mmol/L (135-145)
[2024-08-23 07:58] LABS: VBG PH 7.498 (7.31-7.41)
[2024-08-23 07:59] LABS: CALCIUM, IONIZED 1.04 mmol/L (1.15-1.33)
[2024-08-23] MEDS ORDERED: POTASSIUM CHLORIDE INJ 40 MEQ in SODIUM CHLORIDE 0.9% 500 ML IV ONE (08:14)
[2024-08-23] MEDS: FUROSEMIDE 20 MG/2 ML VIAL IVP SCH (09:46)
[2024-08-23] MEDS: cefTRIAXone 1 GM VIAL IVP SCH (09:46)
[2024-08-23] MEDS: POTASSIUM CHLOR 10 MEQ/100 ML 10 MEQ/100 ML BAG IV SCH (09:58)
--- NOTE | 2024-08-23 11:11 | PROVIDER PROGRESS NOTE ---
Subjective Prog Note Date Prog Note Date: 08/23/24 Prog Note Time: 11:09 Subjective Subjective: pt directly admitted from outside facility after being transferred there for wiliam with concern for possible need for renal evaluation + HD. pt was not a candidate for HD, and advised to continue with iv hydration and supportive mgmt. per family request, pt has returned to facility for ongoing care. has noted that pt seems more lethargic than usual and is concerned about what's happening. no focal deficits noted or reported per rn and not sedating meds have been given to pt. pt with h/o parkinson's disease, dementia, and bladder CA. s/p R ureter stend placement 08/16/2024. currently on IVF. most recent Cr 1.9 with bun >70. Pt is full code 08/22/2024: Pt is resting in bed, lethargic, appears quite weak. at bedside. 08/23/2024: Patient resting in bed, very lethargic, follows commands. Denies any pain, respiratory distress or nausea. at bedside. Current Medications Current Medications Current Medications: Current Medications Generic Name Dose Route Start Last Admin Trade Name Freq PRN Reason Stop Dose Admin Acetaminophen 650 mg 08/21/24 18:35 Acetaminophen 325 Mg Tablet PO Q4HR PRN Pain 1 to 4, or Fever Ceftriaxone Sodium 1 gm 08/23/24 09:00 08/23/24 09:46 Ceftriaxone 1 Gm Vial IVP 1 gm DAILY NAVIN Administration Enoxaparin Sodium 60 mg 08/22/24 16:00 08/23/24 10:08 Enoxaparin 60 Mg/0.6 Ml Syringe SUBQ 60 mg DAILY NAVIN Administration Furosemide 20 mg 08/23/24 09:00 08/23/24 09:46 Furosemide 20 Mg/2 Ml Vial IVP 20 mg DAILY NAVIN Administration Hydralazine HCl 10 mg 08/21/24 18:38 Hydralazine Inj 20 Mg/Ml Vial IVP DAILY PRN Hypertensive Emergency Dextrose 1,000 mls @ 75 mls/hr 08/22/24 04:00 08/23/24 06:46 D5w IV 75 mls/hr .[id number] NAVIN Administration Potassium Chloride 10 meq in 100 mls @ 100 mls/hr 08/23/24 09:00 08/23/24 09:58 Potassium Chloride IV 08/23/24 12:59 75 mls/hr Q1H NAVIN Administration Ondansetron HCl 4 mg 08/21/24 18:35 Ondansetron Odt 4 Mg Tablet TL Q6HR PRN Nausea / Vomiting Sodium Chloride 10 ml 08/21/24 18:35 Sodium Chloride Flush 0.9% 10 Ml Syringe IVP PRN PRN NEEDED PER PROVIDER ORDERS Sodium Chloride 10 ml 08/22/24 01:00 08/23/24 09:47 Sodium Chloride Flush 0.9% 10 Ml Syringe IVP 10 ml 0100,0900,1700 NAVIN Administration Objective Vital Signs/Intake & Output Vital Signs: Vital Signs x48h Temp Pulse Pulse Resp BP Pulse Ox 08/23/24 07:49 36.6 C 120 H 24 117/80 98 08/23/24 05:00 36.7 C 110 H 28 H 152/98 H 96 Intake & Output: Intake & Output 08/20/24 08/21/24 08/22/24 08/23/24 23:59 23:59 23:59 23:59 Intake Total 2173 / 2173 1000 / 1000 Output Total 525 / 525 270 / 270 Balance 1648 / 1648 730 / 730 Weight (kg) 53.5 kg 54 kg Objective General Appearance: positive No acute distress and Alert ENT: positive ENT inspection nml Neck: positive Nml inspection and Trachea midline Respiratory: positive Chest non-tender and No respiratory distress Cardiovascular: positive Other (Sinus tap, paroxysmal A-fib) Abdomen: positive Non-tender and No organomegaly Skin: positive Color nml and No rash Extremities: positive Non-tender and Full ROM Neurologic/Psychiatric: positive Other (lethargic, weakness) Lab Results 08/23/24 07:35 08/23/24 07:35 Other Labs: Lab Results x24hrs 08/23/24 08/23/24 08/22/24 Range/Units 07:35 07:35 21:55 WBC 12.4 H (4.8-10.8) x10^3/uL RBC 3.99 L (4.70-6.10) 10^6/uL Hgb 12.3 L (14.0-18.0) g/dL Hct 38.2 L (42.0-52.0) % MCV 95.7 H (80.0-94.0) fL MCH 30.8 (27.0-31.0) pg MCHC 32.2 (32.0-36.0) g/dL RDW 13.1 (12.0-15.0) % Plt Count 168 (130-450) 10^3/uL MPV 10.9 (7.4-11.4) fL Neut # (Auto) 11.0 H (1.5-6.6) 10^3/uL Lymph # (Auto) 0.7 L (1.5-3.5) 10^3/uL Hudson # (Auto) 0.7 (0.0-1.0) 10^3/uL Eos # (Auto) 0.0 (0.0-0.7) 10^3/uL Baso # (Auto) 0.0 (0.0-0.1) 10^3/uL Absolute Nucleated RBC 0.00 x10^3/uL Nucleated RBC % 0.0 /100WBC VBG pH 7.498 H (7.31-7.41) Ionized Calcium YES 1.04 L (1.15-1.33) mmol/L Sodium 148 H 149 H (135-145) mmol/L Potassium 3.2 L (3.5-4.5) mmol/L Chloride 106 (101-111) mmol/L Carbon Dioxide 33 H (21-32) mmol/L Anion Gap 9.0 (6-13) BUN 78 H (6-20) mg/dL Creatinine 1.6 H (0.6-1.3) mg/dL Estimated GFR (MDRD) 41 L (>89) Glucose 142 H (74-104) mg/dL Lactic Acid (0.5-2.2) mmol/L Calcium 8.2 L (8.5-10.3) mg/dL 08/22/24 08/22/24 08/22/24 Range/Units 18:10 14:20 13:48 WBC (4.8-10.8) x10^3/uL RBC (4.70-6.10) 10^6/uL Hgb (14.0-18.0) g/dL Hct (42.0-52.0) % MCV (80.0-94.0) fL MCH (27.0-31.0) pg MCHC (32.0-36.0) g/dL RDW (12.0-15.0) % Plt Count (130-450) 10^3/uL MPV (7.4-11.4) fL Neut # (Auto) (1.5-6.6) 10^3/uL Lymph # (Auto) (1.5-3.5) 10^3/uL Hudson # (Auto) (0.0-1.0) 10^3/uL Eos # (Auto) (0.0-0.7) 10^3/uL Baso # (Auto) (0.0-0.1) 10^3/uL Absolute Nucleated RBC x10^3/uL Nucleated RBC % /100WBC VBG pH (7.31-7.41) Ionized Calcium (1.15-1.33) mmol/L Sodium 149 H 150 H (135-145) mmol/L Potassium (3.5-4.5) mmol/L Chloride (101-111) mmol/L Carbon Dioxide (21-32) mmol/L Anion Gap (6-13) BUN (6-20) mg/dL Creatinine (0.6-1.3) mg/dL Estimated GFR (MDRD) (>89) Glucose (74-104) mg/dL Lactic Acid 1.9 (0.5-2.2) mmol/L Calcium (8.5-10.3) mg/dL Diagnostic Imaging Diagnostic Imaging Results: positive Final report reviewed Assessment/Plan Problem List (1) Acute kidney failure: Impression: Patient was originally transferred to [place] for possible hemodialysis. nephro was consulted who started patient on bicarb and Lasix drip. Patient made excellent amount urine -> Lasix drips were stopped Bicarb drip was stopped due to patient's new diagnosis of CHF with reduced ejection fraction of 20%. Patient creatinine has now improved to 1.6, BUN has improved to 78. Patient had a positive fluid balance of around 5 1500 over the last 12 hours. Continue D5 water at 75 mL/h. Start Lasix 20 IV daily, Monitor urine output Qualifiers: Acute renal failure type: unspecified Qualified Code(s): N17.9 - Acute kidney failure, unspecified (2) Hypernatremia: Impression: On admission patient's sodium was 150. Continue mild rehydration with D5 water, monitor sodium every 4. Limit correction of sodium to 10 Milliequivalent per 24 hours. Sodium has improved to 148 over the last 12 hours. Continue mild IV hydration in the background of heart failure with reduced ejection Fraction of 20% (3) Paroxysmal atrial fibrillation: Impression: During patient's stay at [place]' patient had episodic atrial fibrillation. Patient was started on Eliquis at [place]. However currently patient is has dysphagia, he is a high risk for aspiration. And unable to take oral medication. Recommend patient Eliquis 2.5 mg p.o. twice daily when he is able to swallow. Patient now on Lovenox 60 daily Metoprolol with a 2.5 mg IV as needed for heart rate control (4) Parkinson disease: Impression: Chronic, patient is not on Parkinson disease medications. His Parkinson's disease may be contributing to his metabolic encephalopathy. Qualifiers: Dyskinesia presence: unspecified whether dyskinesia Fluctuating manifestations: unspecified whether manifestations fluctuate Qualified Code(s): G20.A1 - Parkinson's disease without dyskinesia, without mention of fluctuations (5) Bladder cancer: Impression: Possible recurrent, obstructive Mass noted during rest Cystoscopy. Pathology is pending. Qualifiers: Bladder location: unspecified site Qualified Code(s): C67.9 - Malignant neoplasm of bladder, unspecified (6) CHF (congestive heart failure): Impression: Echo indicates mildly reduced EF of 20%, Possibly due to recent sepsis. Patient needs follow-up with cardiology for CHF workup. Monitor IV fluids and volume status. (7) Dysphagia: Impression: Patient has dysphagia at baseline, likely multifactorial including pulmonary disease as well as mentation status. Patient failed bedside swallow. Recommendation for feeding tube DHT. Plan for formal swallow study on 08/26/2024, at bedside would like to feed him although patient is at high risk for aspiration pneumonia. Possibility of NG tube placement was discussed With family. At this time point family does not want NG tube Pt is at high risk for aspiration. Family is exploring hospice care. (8) Complicated UTI (urinary tract infection): Impression: acute UTI with right hydronephrosis status post stent On 08/16/2024 Repeat UA is negative (08/22/2024). Continue antibiotic rocephin for A total antibiotic dosage of 7 days (08/16 - 08/22). (9) Acute metabolic encephalopathy: Impression: This is most likely multifactorial, including advanced Parkinson's disease, renal failure with highly elevated BUN, old age, hx of recent sepsis and overall medical decompensation. Continue to monitor neuro status.
[2024-08-23 13:42] LABS: BILIRUBIN,URINE NEGATIVE (NEGATIVE); GLUCOSE, URINE (UA) NEGATIVE (NEGATIVE); KETONES,URINE (UA) NEGATIVE (NEGATIVE); LEUKOCYTE ESTERASE, URINE SMALL (NEGATIVE); NITRITE,URINE NEGATIVE (NEGATIVE); OCCULT BLOOD,URINE LARGE (NEGATIVE); PROTEIN,URINE NEGATIVE (NEGATIVE); UROBILINOGEN,URINE 0.2 (NORMAL) E.U./dL (NORMAL)
[2024-08-23 13:44] LABS: CLARITY,URINE CLEAR (CLEAR)
[2024-08-23 13:54] LABS: BACTERIA,URINE Few /HPF (None Seen); SQUAMOUS EPITHELIAL CELL,UR FEW Squamous (<= Few)
[2024-08-23] MEDS: MULTIVITAMIN 10 ML, THIAMINE INJ 100 MG, POTASSIUM CHLORIDE INJ 20 MEQ, FOLIC ACID INJ ... IV SCH (14:23)
--- NOTE | 2024-08-23 14:42 | CONSULTATION NOTE ---
Hospice Consultation ([facility]) Hospice Consultation Hospice Consultation Note: 83 yo male w/hx of bladder cancer (remission since 2019), ureteral stones, and Parkinson's dz (tx'd w/muscle injections only) who was admitted to the hospital initially from 08/16-08/18/24 w/anuric ISA w/obstructive uropathy. He underwent cystoscopy w/R ureteral stent placement. D/t worsening renal failure w/Cr rising up to 6, he was transferred to [facility] for nephrologic consultation for possible dialysis. While there, he was placed on lasix and bicarb drips. He was also found to have severe cardiomyopathy w/LVEF 20%. He developed progressive hypernatremia as well. His UOP increased and his renal function improved. He ultimately was transferred back to [facility] on 08/22 per family request as spouse wanted him to be closer to home. He has a hx of dysphagia related to his Parkinson's dz. At baseline, his feeds him a dysphagia diet w/minced or ground meats and thin liquids. She reports he aspirates fairly often at baseline, but she feels he overall tolerates the diet reasonably well. He has been losing weight over time, as he sometimes will leave food untouched if he doesn't like what she has made. Spouse notes that she is very concerned that he hasn't had anything to eat/drink "in 5 days". She says he has become increasingly distressed over not being able to eat. She says he is asking for food frequently. She understands that he will aspirate and says she knows he does it at home. There has been conversation about placing a feeding tube. She feels he would not wish to have a feeding tube, and feels certain he would pull it out. He pulled out an IV yesterday d/t being "fed up" with being in the hospital. Both she and her dtr feel he is cognitively reasonably intact and can follow commands, but that he is tired of being in the hospital. Spouse is very clear that she values quality of life over quantity of life, and verbalized this multiple times. She hopes he will improve and says he was fairly independent before this hospitalization. Dtr has been calling caregivers in hopes of arranging in home caregiving (dtr lives in [place] and will not be able to provide assistance). PMH: Parkinson's disease - no meds d/t concerns of side effects Dysphagia d/t PD Severe PCM Hx Bladder cancer Obstructive uropathy, s/p Rt ureteral stent ISA (improving) Objective: Gen: Pt laying in his bed, sleeping comfortably, mouth open VS: T36.6 HR 106 RR 22 BP 120/77 O2 sat 97% RA Exam o/w deferred as family request we meet outside of the hospital room Assessment/Plan: 1) Parkinson's Disease w/dysphagia Long discussion re: current status. Initially, pt's spouse and dtr asked about wether pt could have NGT for feeding and enroll in hospice. After further discussion re: logistics of feeding tube, was adamant that pt would neither tolerate nor want a feeding tube. Discussed options for po intake (comfort feeding vs. previous diet vs. safest diet). Spouse and dtr agreed to safest diet. They understand that he is weaker now than he was prior to his acute illness and his dysphagia will likely be worse. They understand he is at risk for aspiration/pneumonitis/pneumonia and respiratory failure. Despite that, they agree that eating is important for his quality of life. Given that, pt's spouse agrees pt should be DNR/DNI and would not want aggressive interventions pursued. Plans to proceed w/discharge home w/hospice services once caregiving,equipment, etc in place. 2)Acute systolic CHF LVEF 20%. Currently, he is receiving IV lasix daily. Unclear volume status as I did not have an opportunity to examine him. He continues on D5W for hypernatr emia as well. 3) Obstructive uropathy w/ISA Pt is s/p R ureteral stent placement. Biopsy was taken during cysto and is pending. Cr improved at 1.6. 4) Hypernatremia Slowly improving. Sodium is down to 148 today. Continues on D5W. 5) Advanced Care Planning Pt has a directive w/Full code elected. Discussed at length w/pt's spouse and dtr. At this time, they both agree he would not want resuscitation efforts given his current condition. They agree he should transition to DNR/DNI. Encouraged to complete a new POLST upon admission to hospice services. Communicated above w/hospitalist who requested I place above orders. 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
--- NOTE | 2024-08-23 15:36 | OT Plan of Care ---
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 Adm to hospital with urine retention. Palliative and Hospice consulted for progression of care. Seen for OT evaluation for a ssessment of needs within home upon d/c. Pt Met supine in bed, lethargic but arousable to name. Frequent eye closure. A&O to self and place. Follows 1 step commands with increased time. Pt performed supine to sit MIN A, EOB sitting CG- MIN A with fair trunk control, and sit to stand MIN Ax2, Unable to take steps at this time 2/2 fatigue however anticipate MIN Ax2 SPT to chair prn. MAX A for ADLs at this time bed level for comfort pending prognosis and progression of care. Pt may progress to use of bedside commode within home. OT educated and daughter on DME and level of A needed from home services for safe d/c. Cont OOB with nursing as appropriate. At this time pt is not appropriate for cont skilled therapy services in acute setting. Rec d/c home with care prn. OT Inpatient Plan PLAN Treatment Frequency: Evaluation only, no further O.T. -Discharge Recommendations Discharge Location: Previous Living Situation Support/Services Needed: Home Health O.T. Transport Needs at Discharge: [place]
[2024-08-23] MEDS: FAMOTIDINE 20 MG/2 ML VIAL IVP SCH (20:47)
--- NOTE | 2024-08-23 23:18 | PROVIDER PROGRESS NOTE ---
Glazing Machine Operator Note Glazing Machine Operator Note Glazing Machine Operator Note: pt with reported blood-like drainage from paul, per rn check cbc, cmp, mag, ua
[2024-08-23 23:43] LABS: BASOPHILS % (AUTO) 0.1 %; EOSINOPHILS % (AUTO) 0.2 %; HCT - HEMATOCRIT 37.9 % (42.0-52.0); HGB - HEMOGLOBIN 11.8 g/dL (14.0-18.0); LYMPHOCYTES # (AUTO) 0.7 10^3/uL (1.5-3.5); LYMPHOCYTES % (AUTO) 6.5 %; MEAN CORPUSCULAR HEMOGLOBIN 30.3 pg (27.0-31.0); MEAN CORPUSCULAR HGB CONC 31.1 g/dL (32.0-36.0); MEAN CORPUSCULAR VOLUME 97.2 fL (80.0-94.0); MEAN PLATELET VOLUME 10.7 fL (7.4-11.4); MONOCYTES # (AUTO) 0.6 10^3/uL (0.0-1.0); MONOCYTES % (AUTO) 5.7 %; NEUTROPHILS # (AUTO) 8.9 10^3/uL (1.5-6.6); NEUTROPHILS % (AUTO) 87.1 %; PLT - PLATELET COUNT 162 10^3/uL (130-450); WHITE BLOOD COUNT 10.2 x10^3/uL (4.8-10.8)
[2024-08-24] LABS: ALBUMIN 2.9 g/dL (3.2-5.5); ALBUMIN/GLOBULIN RATIO 1.2 (1.0-2.2); BILIRUBIN,TOTAL 0.6 mg/dL (0.2-1.0); CALCIUM 7.9 mg/dL (8.5-10.3); CREATININE 1.4 mg/dL (0.6-1.3); POTASSIUM 3.4 mmol/L (3.5-4.5); TOTAL PROTEIN 5.3 g/dL (6.4-8.9)
[2024-08-24 00:33] LABS: BILIRUBIN,URINE SMALL (NEGATIVE); GLUCOSE, URINE (UA) NEGATIVE (NEGATIVE); KETONES,URINE (UA) TRACE mg/dL (NEGATIVE); LEUKOCYTE ESTERASE, URINE SMALL (NEGATIVE); NITRITE,URINE POSITIVE (NEGATIVE); OCCULT BLOOD,URINE LARGE (NEGATIVE); PROTEIN,URINE >=300 mg/dL (NEGATIVE); UROBILINOGEN,URINE 1 (NORMAL) E.U./dL (NORMAL)
[2024-08-24 00:36] LABS: CLARITY,URINE CLOUDY (CLEAR); RBC,URINE TNTC /HPF (0-5); SQUAMOUS EPITHELIAL CELL,UR NONE SEEN (<= Few); WBC,URINE >25 /HPF (0-3)
[2024-08-24 00:37] LABS: BACTERIA,URINE Moderate /HPF (None Seen)
--- NOTE | 2024-08-24 11:53 | PROVIDER PROGRESS NOTE ---
Subjective Subjective Subjective: Patient 83-year-old male with history of Parkinson's disease, who initially had presented for possible urinary retention. Was initially transferred out for possible hemodialysis; transferred back. Patient's family had conversations with hospice care; are opting for hospice. Likely this will occur by . Patient appears comfortable. He is responsive to yes or no questions. He had a difficult time sleeping overnight. Current Medications Current Medications Current Medications: Current Medications Generic Name Dose Route Start Last Admin Trade Name Freq PRN Reason Stop Dose Admin Acetaminophen 650 mg 08/21/24 18:35 Acetaminophen 325 Mg Tablet PO Q4HR PRN Pain 1 to 4, or Fever Ceftriaxone Sodium 1 gm 08/23/24 09:00 08/24/24 08:11 Ceftriaxone 1 Gm Vial IVP 1 gm DAILY NAVIN Administration Enoxaparin Sodium 60 mg 08/22/24 16:00 08/24/24 08:11 Enoxaparin 60 Mg/0.6 Ml Syringe SUBQ Not Given DAILY NAVIN Famotidine 20 mg 08/23/24 21:00 08/24/24 08:04 Famotidine 20 Mg/2 Ml Vial IVP 20 mg BID NAVIN Administration Furosemide 20 mg 08/23/24 09:00 08/24/24 08:04 Furosemide 20 Mg/2 Ml Vial IVP 20 mg DAILY NAVIN Administration Hydralazine HCl 10 mg 08/21/24 18:38 Hydralazine Inj 20 Mg/Ml Vial IVP DAILY PRN Hypertensive Emergency Multivitamins 10 ml/ Thiamine 1,021.2 mls @ 75 mls/hr 08/23/24 14:00 08/24/24 04:04 HCl 100 mg/ Potassium Chloride IV 08/24/24 21:00 Infused 20 meq/ Folic Acid 1 mg/ DAILY@1200 NAVIN Infusion Dextrose/Sodium Chloride Ondansetron HCl 4 mg 08/21/24 18:35 Ondansetron Odt 4 Mg Tablet TL Q6HR PRN Nausea / Vomiting Sodium Chloride 10 ml 08/21/24 18:35 Sodium Chloride Flush 0.9% 10 Ml Syringe IVP PRN PRN NEEDED PER PROVIDER ORDERS Sodium Chloride 10 ml 08/22/24 01:00 08/24/24 08:04 Sodium Chloride Flush 0.9% 10 Ml Syringe IVP 10 ml 0100,0900,1700 NAVIN Administration Objective Vital Signs/Intake & Output Reviewed Vital Signs: Yes Vital Signs: Vital Signs x48h Temp Pulse Pulse Resp BP Pulse Ox 08/23/24 07:49 36.6 C 120 H 24 117/80 98 08/23/24 05:00 36.7 C 110 H 28 H 152/98 H 96 Intake & Output: Intake & Output 08/21/24 08/22/24 08/23/24 08/24/24 23:59 23:59 23:59 23:59 Intake Total 2173 / 2173 1872 / 1872 1021.2 / 1021.2 Output Total 525 / 525 1370 / 1370 300 / 300 Balance 1648 / 1648 502 / 502 721.2 / 721.2 Weight (kg) 53.5 kg 54 kg 54 kg Objective General Appearance: positive No acute distress and Alert ENT: positive ENT inspection nml Neck: positive Nml inspection and Trachea midline Respiratory: positive Chest non-tender and No respiratory distress Cardiovascular: positive Other (Sinus at the moment, paroxysmal A-fib) Abdomen: positive Non-tender and No organomegaly Skin: positive Color nml and No rash Extremities: positive Non-tender and Full ROM Neurologic/Psychiatric: positive Disoriented to place, Disoriented to time and Other (lethargic, weakness) Lab Results 08/23/24 23:25 08/23/24 23:25 Other Labs: Lab Results x24hrs 08/24/24 08/23/24 08/23/24 Range/Units 00:16 23:25 13:20 WBC 10.2 (4.8-10.8) x10^3/uL RBC 3.90 L (4.70-6.10) 10^6/uL Hgb 11.8 L (14.0-18.0) g/dL Hct 37.9 L (42.0-52.0) % MCV 97.2 H (80.0-94.0) fL MCH 30.3 (27.0-31.0) pg MCHC 31.1 L (32.0-36.0) g/dL RDW 13.0 (12.0-15.0) % Plt Count 162 (130-450) 10^3/uL MPV 10.7 (7.4-11.4) fL Neut # (Auto) 8.9 H (1.5-6.6) 10^3/uL Lymph # (Auto) 0.7 L (1.5-3.5) 10^3/uL [place] # (Auto) 0.6 (0.0-1.0) 10^3/uL Eos # (Auto) 0.0 (0.0-0.7) 10^3/uL Baso # (Auto) 0.0 (0.0-0.1) 10^3/uL Absolute Nucleated RBC 0.00 x10^3/uL Nucleated RBC % 0.0 /100WBC Sodium 147 H (135-145) mmol/L Potassium 3.4 L (3.5-4.5) mmol/L Chloride 106 (101-111) mmol/L Carbon Dioxide 33 H (21-32) mmol/L Anion Gap 8.0 (6-13) BUN 67 H (6-20) mg/dL Creatinine 1.4 H (0.6-1.3) mg/dL Estimated GFR (MDRD) 48 L (>89) Glucose 132 H (74-104) mg/dL Calcium 7.9 L (8.5-10.3) mg/dL Magnesium 2.0 (1.7-2.3) mg/dL Total Bilirubin 0.6 (0.2-1.0) mg/dL AST 32 (10-42) IU/L ALT 40 (10-60) IU/L Alkaline Phosphatase 50 (42-121) IU/L Total Protein 5.3 L (6.4-8.9) g/dL Albumin 2.9 L (3.2-5.5) g/dL Globulin 2.4 (2.1-4.2) g/dL Albumin/Globulin Ratio 1.2 (1.0-2.2) Urine Color RED/BLOODY LIGHT YELLOW Urine Clarity CLOUDY CLEAR (CLEAR) Urine pH 5.0 6.0 (5.0-7.5) PH Ur Specific [place] 1.020 1.015 (1.002-1.030) Urine Protein >=300 H NEGATIVE (NEGATIVE) mg/dL Urine Glucose (UA) NEGATIVE NEGATIVE (NEGATIVE) mg/dL Urine Ketones TRACE NEGATIVE (NEGATIVE) mg/dL Urine Occult Blood LARGE H LARGE H (NEGATIVE) Urine Nitrite POSITIVE H NEGATIVE (NEGATIVE) Urine Bilirubin SMALL H NEGATIVE (NEGATIVE) Urine Urobilinogen 1 (NORMAL) 0.2 (NORMAL) (NORMAL) E.U./dL Ur Leukocyte Esterase SMALL H SMALL H (NEGATIVE) Urine RBC TNTC H 6-10 H (0-5) /HPF Urine WBC >25 H 6-10 H (0-3) /HPF Ur Squamous Epith Cells NONE SEEN FEW Squamous (<= Few) Urine Bacteria Moderate H Few (None Seen) /HPF Urine Culture Comments INDICATED INDICATED Diagnostic Imaging Diagnostic Imaging Results: positive Final report reviewed Assessment/Plan Problem List (1) Acute kidney failure: Impression: Initially patient was transferred to another hospital for possible hemodialysis. At that time, nephrology was consulted there, and patient was started on bicarbonate as well as a Lasix drip. He responded well to this and produced urine. His creatinine is stable now around 1.4. He has made about 1.4 L of urine overnight. His balance is 393. Continue IV Lasix while inpatient to maximize his functional status. Patient is now hospice. After discussion with family, patient will participate in pleasure feeding. Qualifiers: Acute renal failure type: unspecified Qualified Code(s): N17.9 - Acute kidney failure, unspecified (2) Hypernatremia: Impression: Continues to improve with some IV hydration. Will not recheck while in hospital. Continue pleasure feedings. (3) Paroxysmal atrial fibrillation: Impression: Patient's currently in normal sinus rhythm. Patient is now hospice. Risks outweigh benefits for Eliquis. Continue to hold. (4) Parkinson disease: Impression: Not on any medications for it at home. Qualifiers: Dyskinesia presence: unspecified whether dyskinesia Fluctuating manifestations: unspecified whether manifestations fluctuate Qualified Code(s): G20.A1 - Parkinson's disease without dyskinesia, without mention of fluctuations (5) Bladder cancer: Impression: Possible recurrent, obstructive mass noted during cystoscopy. Pathology is pending. Qualifiers: Bladder location: unspecified site Qualified Code(s): C67.9 - Malignant neoplasm of bladder, unspecified (6) CHF (congestive heart failure): Impression: ECHO indicates mildly reduced EF of 20%, Possibly due to recent sepsis. Continue IV Lasix. Qualifiers: Heart failure chronicity: unspecified Heart failure type: unspecified Qualified Code(s): I50.9 - Heart failure, unspecified (7) Dysphagia: Impression: Patient has dysphagia. Per hospice care, family is opting for Hospice care and pleasure fees. Qualifiers: Dysphagia type: unspecified Qualified Code(s): R13.10 - Dysphagia, unspecified (8) Complicated UTI (urinary tract infection): Impression: Completed course of Rocephin. (9) Acute metabolic encephalopathy: Impression: This is most likely multifactorial, including advanced Parkinson's disease, renal failure with highly elevated BUN, old age, hx of recent sepsis and overall medical decompensation. Plan for Hospice level care.
--- NOTE | 2024-08-25 11:04 | PROVIDER PROGRESS NOTE ---
Subjective Subjective Subjective: Patient 83-year-old male with history of Parkinson's disease, who initially had presented for possible urinary retention. Was initially transferred out for possible hemodialysis; transferred back. Patient's family had conversations with hospice care; are opting for hospice. Likely this will occur by . Patient appears comfortable. He is responsive to yes or no questions. He had a difficult time sleeping overnight. Current Medications Current Medications Current Medications: Current Medications Generic Name Dose Route Start Last Admin Trade Name Freq PRN Reason Stop Dose Admin Acetaminophen 650 mg 08/21/24 18:35 Acetaminophen 325 Mg Tablet PO Q4HR PRN Pain 1 to 4, or Fever Enoxaparin Sodium 60 mg 08/22/24 16:00 08/25/24 10:19 Enoxaparin 60 Mg/0.6 Ml Syringe SUBQ 60 mg DAILY NAVIN Administration Famotidine 20 mg 08/23/24 21:00 08/25/24 09:56 Famotidine 20 Mg/2 Ml Vial IVP Not Given BID NAVIN Furosemide 20 mg 08/23/24 09:00 08/25/24 09:56 Furosemide 20 Mg/2 Ml Vial IVP Not Given DAILY [facility] Hydralazine HCl 10 mg 08/21/24 18:38 Hydralazine Inj 20 Mg/Ml Vial IVP DAILY PRN Hypertensive Emergency Ondansetron HCl 4 mg 08/21/24 18:35 Ondansetron Odt 4 Mg Tablet TL Q6HR PRN Nausea / Vomiting Sodium Chloride 10 ml 08/21/24 18:35 Sodium Chloride Flush 0.9% 10 Ml Syringe IVP PRN PRN NEEDED PER PROVIDER ORDERS Sodium Chloride 10 ml 08/22/24 01:00 08/25/24 09:57 Sodium Chloride Flush 0.9% 10 Ml Syringe IVP Not Given 0100,0900,1700 [facility] Objective Vital Signs/Intake & Output Reviewed Vital Signs: Yes Vital Signs: Vital Signs x48h Temp Pulse Resp BP Pulse Ox 08/25/24 08:36 97.9 F 103 H 20 142/95 H 95 Intake & Output: Intake & Output 08/22/24 08/23/24 08/24/24 08/25/24 23:59 23:59 23:59 23:59 Intake Total 2173 / 2173 1872 / 1872 1181.2 / 1181.2 910 / 910 Output Total 525 / 525 1370 / 1370 1225 / 1225 300 / 300 Balance 1648 / 1648 502 / 502 -43.8 / -43.8 610 / 610 Weight (kg) 53.5 kg 54 kg 54 kg 54 kg Objective General Appearance: positive No acute distress and Alert ENT: positive ENT inspection nml Neck: positive Nml inspection and Trachea midline Respiratory: positive Chest non-tender and No respiratory distress Cardiovascular: positive Other (Sinus at the moment, paroxysmal A-fib) Abdomen: positive Non-tender and No organomegaly Skin: positive Color nml and No rash Extremities: positive Non-tender and Full ROM Neurologic/Psychiatric: positive Disoriented to place, Disoriented to time and Other (lethargic, weakness) Lab Results 08/23/24 23:25 08/23/24 23:25 Other Labs: Lab Results x24hrs 08/24/24 08/23/24 08/23/24 Range/Units 00:16 23:25 13:20 WBC 10.2 (4.8-10.8) x10^3/uL RBC 3.90 L (4.70-6.10) 10^6/uL Hgb 11.8 L (14.0-18.0) g/dL Hct 37.9 L (42.0-52.0) % MCV 97.2 H (80.0-94.0) fL MCH 30.3 (27.0-31.0) pg MCHC 31.1 L (32.0-36.0) g/dL RDW 13.0 (12.0-15.0) % Plt Count 162 (130-450) 10^3/uL MPV 10.7 (7.4-11.4) fL Neut # (Auto) 8.9 H (1.5-6.6) 10^3/uL Lymph # (Auto) 0.7 L (1.5-3.5) 10^3/uL [place] # (Auto) 0.6 (0.0-1.0) 10^3/uL Eos # (Auto) 0.0 (0.0-0.7) 10^3/uL Baso # (Auto) 0.0 (0.0-0.1) 10^3/uL Absolute Nucleated RBC 0.00 x10^3/uL Nucleated RBC % 0.0 /100WBC Sodium 147 H (135-145) mmol/L Potassium 3.4 L (3.5-4.5) mmol/L Chloride 106 (101-111) mmol/L Carbon Dioxide 33 H (21-32) mmol/L Anion Gap 8.0 (6-13) BUN 67 H (6-20) mg/dL Creatinine 1.4 H (0.6-1.3) mg/dL Estimated GFR (MDRD) 48 L (>89) Glucose 132 H (74-104) mg/dL Calcium 7.9 L (8.5-10.3) mg/dL Magnesium 2.0 (1.7-2.3) mg/dL Total Bilirubin 0.6 (0.2-1.0) mg/dL AST 32 (10-42) IU/L ALT 40 (10-60) IU/L Alkaline Phosphatase 50 (42-121) IU/L Total Protein 5.3 L (6.4-8.9) g/dL Albumin 2.9 L (3.2-5.5) g/dL Globulin 2.4 (2.1-4.2) g/dL Albumin/Globulin Ratio 1.2 (1.0-2.2) Urine Color RED/BLOODY LIGHT YELLOW Urine Clarity CLOUDY CLEAR (CLEAR) Urine pH 5.0 6.0 (5.0-7.5) PH Ur Specific [place] 1.020 1.015 (1.002-1.030) Urine Protein >=300 H NEGATIVE (NEGATIVE) mg/dL Urine Glucose (UA) NEGATIVE NEGATIVE (NEGATIVE) mg/dL Urine Ketones TRACE NEGATIVE (NEGATIVE) mg/dL Urine Occult Blood LARGE H LARGE H (NEGATIVE) Urine Nitrite POSITIVE H NEGATIVE (NEGATIVE) Urine Bilirubin SMALL H NEGATIVE (NEGATIVE) Urine Urobilinogen 1 (NORMAL) 0.2 (NORMAL) (NORMAL) E.U./dL Ur Leukocyte Esterase SMALL H SMALL H (NEGATIVE) Urine RBC TNTC H 6-10 H (0-5) /HPF Urine WBC >25 H 6-10 H (0-3) /HPF Ur Squamous Epith Cells NONE SEEN FEW Squamous (<= Few) Urine Bacteria Moderate H Few (None Seen) /HPF Urine Culture Comments INDICATED INDICATED Diagnostic Imaging Diagnostic Imaging Results: positive Final report reviewed Assessment/Plan Problem List (1) Acute kidney failure: Impression: Initially patient was transferred to another hospital for possible hemodialysis. At that time, nephrology was consulted there, and patient was started on bicarbonate as well as a Lasix drip. He responded well to this and produced urine. His creatinine is stable now around 1.4. He has made about 1.4 L of urine overnight. His balance is 393. Continue IV Lasix while inpatient to maximize his functional status. Switch to oral Lasix today. Patient is now hospice. After discussion with family, patient will participate in pleasure feeding. Qualifiers: Acute renal failure type: unspecified Qualified Code(s): N17.9 - Acute kidney failure, unspecified (2) Hypernatremia: Impression: Continues to improve with some IV hydration. Stopped yesterday. Will not recheck while in hospital. Continue pleasure feedings. (3) Paroxysmal atrial fibrillation: Impression: Patient's currently in normal sinus rhythm. Patient is now hospice. Risks outweigh benefits for Eliquis. Continue to hold. (4) Parkinson disease: Impression: Not on any medications for it at home. Qualifiers: Dyskinesia presence: unspecified whether dyskinesia Fluctuating manifestations: unspecified whether manifestations fluctuate Qualified Code(s): G20.A1 - Parkinson's disease without dyskinesia, without mention of fluctuations (5) Bladder cancer: Impression: Possible recurrent, obstructive mass noted during cystoscopy. Pathology is pending. Qualifiers: Bladder location: unspecified site Qualified Code(s): C67.9 - Malignant neoplasm of bladder, unspecified (6) CHF (congestive heart failure): Impression: ECHO indicates mildly reduced EF of 20%, Possibly due to recent sepsis. Continue oral Lasix. Qualifiers: Heart failure chronicity: unspecified Heart failure type: unspecified Qualified Code(s): I50.9 - Heart failure, unspecified (7) Dysphagia: Impression: Patient has dysphagia. Per hospice care, family is opting for Hospice care and pleasure fees. Qualifiers: Dysphagia type: unspecified Qualified Code(s): R13.10 - Dysphagia, unspecified (8) Complicated UTI (urinary tract infection): Impression: Completed course of Rocephin. (9) Acute metabolic encephalopathy: Impression: This is most likely multifactorial, including advanced Parkinson's disease, renal failure with highly elevated BUN, old age, hx of recent sepsis and overall medical decompensation. Plan for Hospice level care.
--- NOTE | 2024-08-25 17:43 | Discharge Summary ---
"Discharge Summary Admit Date: 08/16/24 Discharge Date: 08/26/24 Discharging Provider: Dr. Franny Ferrera Code Status: Do Not Attempt Resuscitation DIAGNOSES Admission Diagnoses: Acute kidney failure Acute dehydration Bladder cancer Parkinson disease Discharge Diagnoses with Status of Each Condition: Acute kidney failureinitially came in for acute kidney injury. Ultrasound indicated hydronephrosis with possible obstruction of the right ureter. Urology placed a stent in the area. Direction was likely due to a mass. Patient does have a history of bladder cancer and has been in remission for 2 to 3 years. After the procedure, patient became an uric. Patient was initially transferred to [facility] for possible hemodialysis. Here, he received Lasix drip, and started producing urine. As such, he was transferred back. Creatinine has been stable since readmission. Overall goals of care were addressed again. Patient was made hospice. Plan is home with hospice. Hospice will be initiated 1. wire web worker and correctional counselor/case manager have both been in contact with the patient's and daughter, and supplies have been provided or will be delivered prior to patient returning home. Hypernatremiadue to decreased p.o. intake, dehydration. Received some IV fluids. Will stop trending at this time. Paroxysmal atrial fibrillationpatient was in normal sinus rhythm for the majority of his stay. Was not started on Eliquis as risks outweigh benefits in this hospice patient. Parkinson's diseasewas not on any medications for it at home, decision was made to make patient hospice. Bladder cancerpossible recurrent, obstructive mass noted during cystoscopy, pathology remains pending. CHFecho indicates mildly reduced EF of 20%. Will send home with a few pills of Lasix in case it is needed to optimize volume status and maintain comfort. Dysphagiafamily is opting to continue pleasure feeds. Complicated UTIcompleted course of Rocephin. Acute metabolic encephalopathylikely multi of factorial including advanced Parkinson's disease, history of recent sepsis and overall medical decompensation. Plan is for hospice level care. HPI History of Present Illness: Patient is a 83-year-old male with a history of bladder cancer currently in remission since 2019, history of ureteral stones, Parkinson's disease who presents because he was not making any urine at home. Per patient and patient's at bedside, he has not made much urine in the last 2 days. He states that he tries to drink at least 3 small cups of water a day, but it is hard for him to get to the washroom in time, and he worries about urinating on himself. His states that it is probably even less water than this. He has had a few kidney stones in the past, and does not have pain like he did with those. He states the last time he had it, and it was seen on his CAT scan, it did pass. Patient and his states that he does eat regularly, and drinks Ensure regularly. His appetite has been decreased. For the past 2 days, he has felt unwell, although he cannot specify how. He just states that he does not feel like eating, and his appetite has been poor. He denies any fevers, chills, shortness of breath, cough, abdominal pain, blood in his urine. He also denies any dysuria, urinary frequency. He does not any urine incontinence, however due to his Parkinson's, he moves quite slowly, and is sometimes unable to make it to the restroom in time. In the emergency room, he was normotensive at 131/95, heart rate was 67, he was afebrile, saturating 99% on room air. Lab work showed elevated creatinine of 4.1 with a potassium of 5.2. His creatinine 08/12/2023 was 0.9. He was admitted for acute kidney injury. He was started on IV fluids. CONSULTS | PROCEDURES Consultations: [facility] - nephrology, hospitalist; Hospice care; social work Procedures: - Urological stent placement - US retroperitoneal - Abdomen/pelvis CT - Head CT HOSPITAL COURSE Hospital Course: Patient is a 83-year-old male with a history of Parkinson's disease who initially presented for decreased urine output. Retroperitoneal ultrasound was done on admission and it showed moderate to severe right hydronephrosis and proximal hydroureter. He was taken to the OR with urology and the stent was placed. There may have an obstructive mass in that region. A lot of purulence was also expressed once the stent was placed. He was started on Rocephin. Over the next few days, his urine output decreased. He was transferred to [facility] in [place] for possible dialysis. Here, he received a Lasix drip and started making urine again. His creatinine stabilized. He was transferred back here. Once here, goals of care discussion was completed with the patient. Family opted to make patient hospice care. renewals manager, hospice, transition social worker coordinated with family to ensure he had appropriate equipment at home. ALLERGIES Allergies Allergy/AdvReac Type Severity Reaction Status Date / Time sulfamethoxazole (From Allergy Nausea Verified 08/16/24 09:55 Bactrim) trimethoprim (From Bactrim) Allergy Nausea Verified 08/16/24 09:55 MEDICATIONS Ambulatory Orders Medication Instructions Recorded Confirmed acetaminophen 325 mg tablet 650 mg PO Q4H PRN pain (scale 08/16/24 08/22/24 score 1-3) famotidine 20 mg tablet 20 mg PO BID #60 tabs 08/25/24 furosemide 40 mg tablet 40 mg PO DAILY #30 tabs 08/25/24 ondansetron 4 mg disintegrating 4 mg translingual Q6HR PRN Nausea 08/25/24 tablet / Vomiting #30 tabs PHYSICAL EXAM AT DISCHARGE General Appearance: positive Mild distress, Anxious and Other (cachectic, temporal wasting) Eyes Bilateral: positive Normal inspection, PERRL and EOMI ENT: positive ENT inspection nml, Pharynx nml and Dry mucous membranes Neck: positive Nml inspection, Thyroid nml and No JVD Respiratory: positive Chest non-tender and No respiratory distress; negative Wheezes, Rales or Rhonchi Cardiovascular: positive Regular rate & rhythm and No murmur; negative Tachycardia or Bradycardia Peripheral Pulses: positive 2+ Abdomen: positive Non-tender, Nml bowel sounds and No distention; negative Guarding, Hepatomegaly or Splenomegaly Back: positive Nml inspection; negative CVA tenderness (R) or CVA tenderness (L) Skin: positive Color nml, No rash and Warm Extremities: positive Non-tender, Full ROM and Nml appearance Neurologic/Psychiatric: positive Oriented x3, Motor nml and Mood/affect nml LABS 08/23/24 23:25 08/23/24 23:25 DIAGNOSTIC IMAGING Diagnostic Imaging Results: Final report reviewed QUALITY (Female Hip Fx Only) Was patient sent home on osteoporosis medication?: No FOLLOW UP Follow Up: Follow up with hospice care. TIME SPENT Time Spent in Discharge (Minutes): 35 Discharge Plan Discharge Patient Disposition: 50 Hospice/Home DC/Xfer Condition: Serious Prescriptions: New furosemide 40 mg Tablet 40 mg PO DAILY Qty: 30 0RF famotidine 20 mg Tablet 20 mg PO BID Qty: 60 0RF ondansetron 4 mg Tablet,Disintegrating 4 mg translingual Q6HR PRN (Reason: Nausea / Vomiting) Qty: 30 0RF Continued acetaminophen 325 mg tablet 650 mg PO Q4H PRN (Reason: pain (scale score 1-3)) Activity Restrictions: Activity as Tolerated Diet: Regular Health Concerns: You came in because you were having some difficulty urinating. You had a procedure done to place a stent in your ureter. You then did require transfer to a different hospital to be evaluated by ski technician, or kidney doctor. Once this improved, you came back to [facility]. Following this, we had a long discussion with your family members about your goals of care. We have decided to enroll in hospice. We will be focusing more on making sure that you are comfortable, that you are not feeling any pain or anxiety. We hope you continue to feel well and get to spend lots of time with your loved ones. I have sent three prescriptions to the pharmacy, [facility], which should help with some comfort based needs. First is Pepcid, which is an acid reflux pill. Second is furosemide or Lasix which is a water pill which may help with some of the fluid that is building up in your lungs. Third is Zofran or ondansetron, which you can take if you feel nauseous. Thank you for allowing us to take care of you. Print Language: Croatian Patient Instructions: Hospice Start"
[2024-08-25] MEDS: MORPHINE SOL 10 MG/0.5 ML ORAL SYRINGE PO ONE (18:49)
[2024-08-25] MEDS: FUROSEMIDE 40 MG TABLET PO STA (18:51)
[2024-08-25] MEDS: FAMOTIDINE 20 MG TABLET PO SCH (21:32)
[2024-08-25] MEDS ORDERED: ZINC OXIDE 20% OINT 30 GM TUBE TOP PRN (21:32)
[2024-08-26] MEDS: FUROSEMIDE 40 MG TABLET PO SCH (07:48)
[2024-08-26 10:02] VITALS: BP 140/78; TEMP 97.9; O2SAT 95
== END 2024-08-26 11:00 | disposition hospice, home (50) | DRG 682 ==
LOC: MS2 → PREINTOOBSV 18:40
PROVIDERS: ADMIT Physician Assistant Medical; ATTEND Internal Medicine
DX: G93.41 Metabolic encephalopathy; Z66 Do not resuscitate; G20.A1 Parkinson's disease without dyskinesia, without mention of fluctuations; N13.1 Hydronephrosis with ureteral stricture, not elsewhere classified; R13.10 Dysphagia, unspecified; I50.21 Acute systolic (congestive) heart failure; R41.82 Altered mental status, unspecified; Z68.1 Body mass index [BMI] 19.9 or less, adult; I48.0 Paroxysmal atrial fibrillation; C67.9 Malignant neoplasm of bladder, unspecified; E87.0 Hyperosmolality and hypernatremia; I42.8 Other cardiomyopathies; N39.0 Urinary tract infection, site not specified; F02.80 Dementia in other diseases classified elsewhere, unspecified severity, without behavioral disturbance, psychotic disturbance, mood disturbance, and anxiety; N17.9 Acute kidney failure, unspecified; R63.0 Anorexia; R63.4 Abnormal weight loss; R63.8 Other symptoms and signs concerning food and fluid intake; E86.0 Dehydration